=== PATIENT | female | born 1990 | race Caucasian/White ===

== ENCOUNTER 2022-10-26 10:43 | Emergency (ER) | payer MEDICAID, SELFPAY ==
[2022-10-26 10:45] VITALS: PULSE 85; RESP 20; TEMP 36.7; O2SAT 98; BMI 49.6
[2022-10-26 10:53] VITALS: BP 150/84
--- NOTE | 2022-10-26 13:32 | ED_ITS ---
HPI - General Adult General Chief complaint: Ear Stated complaint: EAR INFECTION Time Seen by Provider: 10/26/22 13:26 Source: patient Mode of arrival: walk-in Limitations: no limitations History of Present Illness HPI narrative: Patient is a 32-year-old female who has 2 different complaints today. Patient says that she's been having left ear pain for the past 2 weeks. Patient has been trying Claritin and Flonase with some relief. Patient has not been able to see her PCP yet. Patient also states for the past couple months, patient has been having intermittent leg swelling, and intermittent redness to her lower legs when she is wearing her pants at work. Patient unloads trucks, and is on her feet most the day. Patient is mildly obese. Patient states that her leg swelling is not as bad in the morning after she sleeps, but in the day is worse. Peripheral edema, venous stasis, and gravity were discussed during HPI. Patient takes no water pills. Patient says that she has been on blood pressure medication in the past, but her blood pressure normalized and she no longer needed blood pressure medication. She is not lightheaded or dizzy. She has no headache, no chest pain or shortness of breath. No abdominal pain, nausea or vomiting. No acute complaints. Patient does have redness to bilateral lower extremities. Patient states that after working, it occurs, and then after a few days the redness will go away. Patient states redness is worse last evening when she was working compared to this mornning. pt has reddness to the distal 3rd of her lower extremities, and the redness is where her pants have an elastic band that pushed against the skin. Patient states his redness has been coming and going for the past 2 months. Nurses note and vital signs reviewed and patient is not hypoxic. General: The patient appears well and in no apparent distress. Patient is resting comfortably on cart. Patient is not toxic, lethargic, or listless. Morbidly obese. Skin: Warm, dry, no pallor noted. Patient has redness to bilateral lower extremities, bandlike around her lower ankles where the elastic bandage of her work pants were compressing last night. Patient has no lymphangitis, no expanding cellulitis. There is no significant erythema to the area. This appeared to be venous stasis dermatitis. Patient states the redness was worse last evening that it is today. This is mild redness that is there every time that she works and then it goes away within one or 2 days. Patient has not worked in the last few days, she does not have the redness the last 3 days until she work last evening. No petechiae, purpura. Head: Normocephalic, atraumatic; No tenderness to palpation to bilateral frontomaxillary sinus Eye: Normal conjunctiva, no drainage, EOMI. PERRL Ears, Nose, Mouth, and Throat: oral mucosa is moist. Nares patent. Mouth without vesicles. Patient bilateral tympanic membrane shows no erythema, perforation or bulging. Cardiovascular: Regular Rate and Rhythm, no murmur, gallop, rub Respiratory: Patient is in no distress, no accessory muscle use, lungs are clear to auscultation, no wheezing, rales or rhonchi Back: non-tender, no CVA tenderness bilaterally to percussion. No CT LS midline pain GI: soft, no tenderness to palpation, no masses appreciated. No rebound, guarding, or rigidity noted. No flank pain bilateral, No distention Musculoskeletal: Patient has full range of motion of all of the extremities, no motor, sensory, or focal neurological deficits. Patient has no posterior pharyngeal erythema, petechia or exudate. Patient has equal lower extremity swelling bilateral. Patient does have the band circumferential mild redness to lower extremities over bilateral ankles, redness is improving since last night per patient. No injury, no signs of deformity, no lymphangitis, no expanding cellulitis Neurological: A&O x3, normal speech Psychiatric: Cooperative Related Data Allergies Allergy/AdvReac Type Severity Reaction Status Date / Time Penicillins Allergy Intermediate Verified 10/26/22 10:59 [facility] Social History Smoking status: Current every day smoker Exam Constitutional: Vital Signs, click to edit/add: Vital Signs - 24 hr 10/26/22 10:45 10/26/22 10:53 Temperature 98.1 F Pulse Rate [Monito r] 85 Respiratory Rate 20 Blood Pressure 150/84 H Pulse Oximetry 98 Course Vital Signs Vital signs: Vital Signs Temperature 98.1 F 10/26/22 10:45 Pulse Rate 85 10/26/22 10:45 Respiratory Rate 20 10/26/22 10:45 Pulse Oximetry 98 10/26/22 10:45 Temperature 98.1 F 10/26/22 10:45 Pulse Rate 85 10/26/22 10:45 Respiratory Rate 20 10/26/22 10:45 Blood Pressure 150/84 H 10/26/22 10:53 Pulse Oximetry 98 10/26/22 10:45 Medical Decision Making MDM Narrative Medical decision making narrative: Patient was educated on using DayQuil, NyQuil, Flonase, anti-inflammatories, Sudafed to help with sinus congestion. Patient has been having sneezing, coughing and congestion for the past 2 weeks. Patient has tried Claritin and Flonase for the past couple days with little relief. Patient will continue to treat symptoms. No acute findings of her left ear on physical exam. Patient was educated on peripheral edema, venous stasis dermatitis, and diuretics. Patient has classic presentation of venous stasis dermatitis. The dermatitis occurs when patient wears her elastic bands for work. Patient is on her feet all day when she is working. Patient stated that the swelling floor extremities is better in the morning when she is done sleeping, worse at nighttime. Patient was educated on elevating her legs at nighttime when she sleeping, to use any type of rises or something to raise the end of her bed 1-2 feet to help with swelling and nighttime. Patient was started on Toprol 0.5 mg of Hydrocort Dyazide to help with diuretics to help with swelling. Patient is instructed to follow-up with PCP. Patient understands of this, thankful for help, no questions at discharge. Discharge Plan Discharge Chief Complaint: Ear Clinical Impression: Otalgia of left ear, Edema of both lower legs due to peripheral venous insufficiency, Venous stasis dermatitis Patient Disposition: Home, Self-Care Time of Disposition Decision: 13:27 Condition: Good Instructions: Stasis Dermatitis (ED), Leg Edema (ED), Earache (ED), Lymphedema (ED), Venous Insufficiency (DC) Additional Instructions: Elevate the end of your bed when sleeping 1-2 feet. A low-dose diuretic blood p ressure/water pill has been prescribed 2 to start helping with decreasing fluid in her lower extremities. Follow-up with her PCP for additional recommendations. For your left ear pain, continue using Claritin. You can also start using DayQuil, NyQuil, Sudafed, Flonase. Also use anti-inflammatories of either Motrin, ibuprofen or Aleve. Follow-up with her PCP as well. Stand Alone Forms: Portal Instructions Referrals: Niecy Molina [Primary Care Provider] - 1 week
== END 2022-10-26 13:47 | disposition home or self-care (01) ==
PROVIDERS: Emergency Provider Emergency Medicine; PCP Nurse Practitioner
DX: H92.02 Otalgia, left ear (principal); I87.2 Venous insufficiency (chronic) (peripheral); E66.01 Morbid (severe) obesity due to excess calories; F17.210 Nicotine dependence, cigarettes, uncomplicated
CPT/HCPCS: 99281

== ENCOUNTER 2022-10-31 15:33 | Outpatient (OUT) | payer MEDICAID, SELFPAY ==
[2022-10-31 15:55] LABS: Basophils Absolute Auto 0.1 10^3/uL (0.0-0.1); Eosinophils Absolute Auto 0.4 10^3/uL (0.0-0.7); Eosinophils Percent Auto 3.2 % (0.9-7.0); Hematocrit 44.6 % (36.0-48.0); Hemoglobin 14.6 g/dL (12.0-16.0); Immature Granulocytes Abs Auto 0.03 10^3/uL (0.00-0.03); Immature Granulocytes Pct Auto 0.3 % (0.0-0.5); Lymphocytes Absolute Auto 4.6 10^3/uL (1.2-3.8); Mean Corpuscular HGB Conc 32.7 g/dL (29.9-35.2); Mean Corpuscular Hemoglobin 27.9 pg (26.7-34.0); Mean Corpuscular Volume 85.1 fL (81.0-99.0); Mean Platelet Volume 9.3 fL (9.5-13.5); Monocytes Absolute Auto 0.6 10^3/uL (0.3-0.8); Monocytes Percent Auto 5.4 % (1.7-12.0); Neutrophils Absolute Auto 5.6 10^3/uL (1.4-6.5); Neutrophils Percent Auto 49.1 % (43.0-75.0); Platelet Count 325 10^3/uL (150-450); Red Blood Count 5.24 10^6/uL (4.20-5.40); Red Cell Distribution Width 13.4 % (11.0-15.0); White Blood Count 11.3 10^3/uL (4.0-11.0)
[2022-10-31 16:03] LABS: Bilirubin Urine NEGATIVE (NEGATIVE); Blood Urine NEGATIVE (NEGATIVE); Clarity Urine CLEAR (CLEAR); Color Urine LT. YELLOW (YELLOW); Glucose Urine UA NEGATIVE (NEGATIVE); Ketones Urine NEGATIVE (NEGATIVE); Leukocyte Esterase Urine TRACE (NEGATIVE); Nitrite Urine NEGATIVE (NEGATIVE); Protein Urine NEGATIVE (NEG/TRACE); Specific Gravity Urine 1.015 (1.005-1.025); Urobilinogen Urine 0.2 EU/dL (0.2-1.0)
[2022-10-31 17:08] LABS: Bacteria Urine TRACE #/HPF (NONE SEEN); Cast Seen? NONE SEEN #/LPF (NONE SEEN); Crystals Seen? None Seen #/HPF (None Seen); Mucus Urine NONE SEEN (NONE SEEN); RBC Urine 0-2 #/HPF (0-2); Squamous Epithelial Cell Urine FEW #/LPF (NONE/RARE); Urine Culture Indicated NO; WBC Urine 0-2 #/HPF (NONE SEEN)
[2022-10-31 20:59] LABS: Estimated Average Glucose 111 mg/dL; Glycohemoglobin A1C 5.5 % (4.5-6.2)
[2022-10-31 21:22] LABS: Alanine Aminotransferase 38 U/L (14-59); Albumin Globulin Ratio 0.8; Albumin Level 3.4 g/dL (3.4-5.0); Alkaline Phosphatase 79 U/L (46-116); Anion Gap 11.5; Aspartate Amino Transferase 19 U/L (15-37); BUN Creatinine Ratio 15.9; Bilirubin Total 0.2 mg/dL (0.2-1.0); Calcium 8.6 mg/dL (8.5-10.1); Carbon Dioxide 29.9 mmol/L (21.0-32.0); Chloride 99 mmol/L (98-107); Chol HDL Ratio 3.3; Cholesterol 154 mg/dL (<=200); Estimated GFR (African America >60 (>=60); Estimated GFR (Non-African Ame >60 (>=60); Globulin 4.2 g/dL; Glucose 91 mg/dL (74-106); HDL Cholesterol 46 mg/dL (40-60); Potassium 4.4 mmol/L (3.5-5.1); Sodium 136 mmol/L (136-145); Thyroid Stimulating Hormone 1.931 uIU/mL (0.358-3.740); Total Protein 7.6 g/dL (6.4-8.2); Triglycerides 191 mg/dL (<=150); VLDL CHOLESTEROL 38.2 mg/dL
== END 2022-10-31 15:34 ==
PROVIDERS: PCP Nurse Practitioner; Visit Provider Nurse Practitioner
DX: R60.0 Localized edema (principal); E66.01 Morbid (severe) obesity due to excess calories
CPT/HCPCS: 36415; 80053; 80061; 81001; 83036; 84443; 85025

== ENCOUNTER 2022-11-13 12:56 | Outpatient (OUT) | payer MEDICAID, SELFPAY ==
[2022-11-13 14:50] LABS: Alanine Aminotransferase 33 U/L (14-59); Albumin Globulin Ratio 0.8; Albumin Level 3.5 g/dL (3.4-5.0); Alkaline Phosphatase 77 U/L (46-116); Anion Gap 12.3; Aspartate Amino Transferase 23 U/L (15-37); BUN Creatinine Ratio 13.6; Bilirubin Total 0.4 mg/dL (0.2-1.0); Calcium 9.1 mg/dL (8.5-10.1); Carbon Dioxide 29.5 mmol/L (21.0-32.0); Chloride 99 mmol/L (98-107); Estimated GFR (African America >60 (>=60); Estimated GFR (Non-African Ame >60 (>=60); Globulin 4.5 g/dL; Glucose 86 mg/dL (74-106); Potassium 4.8 mmol/L (3.5-5.1); Sodium 136 mmol/L (136-145)
== END 2022-11-13 12:57 ==
LOC: LAB 12:58
PROVIDERS: PCP Nurse Practitioner; Visit Provider Nurse Practitioner
DX: R60.0 Localized edema (principal)
CPT/HCPCS: 36415; 80053

== ENCOUNTER 2022-12-19 15:20 | Outpatient (OUT) | payer MEDICAID, SELFPAY ==
[2022-12-19 16:22] LABS: Calcium 8.6 mg/dL (8.5-10.1); Carbon Dioxide 31.8 mmol/L (21.0-32.0); Chloride 99 mmol/L (98-107); Estimated GFR (African America >60 (>=60); Estimated GFR (Non-African Ame >60 (>=60); Glucose 98 mg/dL (74-106); Potassium 4.8 mmol/L (3.5-5.1); Sodium 138 mmol/L (136-145)
== END 2022-12-19 15:21 | disposition home or self-care (01) ==
LOC: LAB 15:22
PROVIDERS: PCP Nurse Practitioner; Visit Provider Nurse Practitioner
DX: R60.0 Localized edema (principal)
CPT/HCPCS: 36415; 80048

== ENCOUNTER 2023-01-23 16:48 | Outpatient (OUT) | payer MEDICAID, SELFPAY ==
[2023-01-23 17:09] LABS: Anion Gap 8.1; BUN Creatinine Ratio 12.2; Calcium 8.5 mg/dL (8.5-10.1); Carbon Dioxide 31.6 mmol/L (21.0-32.0); Chloride 104 mmol/L (98-107); Estimated GFR (African America >60 (>=60); Estimated GFR (Non-African Ame >60 (>=60); Glucose 115 mg/dL (74-106); Potassium 4.7 mmol/L (3.5-5.1); Sodium 139 mmol/L (136-145)
== END 2023-01-23 16:49 | disposition home or self-care (01) ==
PROVIDERS: PCP Nurse Practitioner; Visit Provider Nurse Practitioner
DX: R60.0 Localized edema (principal)
CPT/HCPCS: 36415; 80048

== ENCOUNTER 2023-07-21 12:07 | Emergency (ER) | payer MEDICAID, SELFPAY ==
[2023-07-21 12:22] VITALS: BP 134/91; PULSE 96; RESP 18; TEMP 37.3; O2SAT 100; BMI 62.0
[2023-07-21 12:57] LABS: Influenza Virus A Antigen Negative; Influenza Virus B Antigen Negative; Internal Control Within Normal Limits
[2023-07-21 12:58] LABS: SARS-CoV-2 Ag NEGATIVE (NEGATIVE)
--- NOTE | 2023-07-21 13:03 | ED_ITS ---
HPI - URI/Sore Throat General Chief Complaint: Upper Respiratory Infection Stated Complaint: Upper Respiratory Infection Time Seen by Provider: 07/21/23 12:31 Source: patient Limitations: no limitations History of Present Illness HPI Narrative: The patient presented to us with flulike symptoms that started last night of runny nose body aches and cough she has been exposed to her boyfriend to have influenza. No other complaints Related Data Home Medications Medication Instructions Recorded Confirmed furosemide 20 mg tablet 20 mg PO DAILY 07/21/23 07/21/23 Previous Rx's Medication Instructions Recorded ondansetron 4 mg disintegrating 4 mg PO TID PRN nausea and 07/21/23 tablet vomiting 48 hours #6 tabs oseltamivir 75 mg capsule (Tamiflu) 75 mg PO BID 5 days #10 caps 07/21/23 Allergies Allergy/AdvReac Type Severity Reaction Status Date / Time Penicillins Allergy Intermediate Verified 07/21/23 12:22 Review of Systems ROS Status of ROS 10 or more systems reviewed and unremark able except as noted in history and below PFSH PFSH Social History Smoking status: Former smoker Exam Narrative Exam Narrative: Nurses notes and vital signs reviewed and patient is not hypoxic. General: Well-appearing and in no apparent distress. Skin: Warm, dry, no pallor noted. No rash. Head: Normocephalic, atraumatic. Neck: Supple, non-tender. Eye: Pupils are equal, round and EOMI. No scleral icterus. Ears, Nose, Mouth, and Throat: TM are clear, no nasal mucosal hypertrophy. Oral mucosa is moist, no posterior oropharynx erythema, uvula is mid-line Cardiovascular: Regular Rate and Rhythm without murmur, gallop or rub. Respiratory: No accessory muscle use or respiratory distress. Lungs are clear to auscultation, no wheezing, rales or rhonchi Chest Wall: no tenderness Back: No midline thoracic or lumbar vertebral tenderness. No CVA tenderness Musculoskeletal: normal ROM, no calf or popliteal tenderness, no lower extremity edema/swelling GI: Abdomen is soft, non-distended. Normal bowel sounds. No masses appreciated. No tenderness to palpation. No rebound, guarding, or rigidity noted. Neurological: A&O x4. No cranial nerve dysfunction observed. No truncal ataxia. Moves all extremities. Sensation intact. Psychiatric: Cooperative and interactive. Normal mood and affect. Constitutional Vital Signs, click to edit/add: Last Vital Signs Temp 99.1 F 07/21/23 12:22 Pulse 96 H 07/21/23 12:22 Resp 18 07/21/23 12:22 BP 134/91 07/21/23 12:22 Pulse Ox 100 07/21/23 12:22 O2 Del Method Room Air 07/21/23 12:22 Course Vital Signs Vital signs: Vital Signs Temperature 99.1 F 07/21/23 12:22 Pulse Rate 96 H 07/21/23 12:22 Respiratory Rate 18 07/21/23 12:22 Blood Pressure 134/91 07/21/23 12:22 Pulse Oximetry 100 07/21/23 12:22 Oxygen Delivery Method Room Air 07/21/23 12:22 Temperature 99.1 F 07/21/23 12:22 Pulse Rate 96 H 07/21/23 12:22 Respiratory Rate 18 07/21/23 12:22 Blood Pressure 134/91 07/21/23 12:22 Pulse Oximetry 100 07/21/23 12:22 Oxygen Delivery Method Room Air 07/21/23 12:22 MDM - URI/Sore Throat MDM Narrative Medical decision making narrative: The patient tested for COVID and flu negative here in the ER but she is exposed to a positive patient with influenza with symptoms that correlate and she will be treated with Tamiflu as well as Zofran and supportive care. The patient is to follow up with primary care physician in next 2-3 days or to return to the emergency department should any of the signs or symptoms worsen or new symptoms develop. The patient agrees with the following Diagnosis and Treatment plan and the patient will be discharged home. Lab Data Labs: Lab Results 07/21/23 Range/Units 12:25 Influenza Type A Ag Negative Influenza Type B Ag Negative SARS-CoV-2 Ag (CV2AG) Negative (NEGATIVE) Discharge Plan Discharge Chief Complaint: Upper Respiratory Infection Clinical Impression: Flu Patient Disposition: Home, Self-Care Time of Disposition Decision: 13:03 Condition: Good Prescriptions / Home Meds: New oseltamivir [Tamiflu] 75 mg capsule 75 mg PO BID 5 Days Qty: 10 0RF ondansetron 4 mg tablet,disintegrating 4 mg PO TID PRN (Reason: nausea and vomiting) 2 Days Qty: 6 0RF No Action furosemide 20 mg tablet 20 mg PO DAILY Instructions: Influenza (DC) Stand Alone Forms: Portal Instructions Referrals: Niecy Molina NP [Primary Care Provider] - 1 week
[2023-07-21] MEDS: ONDANSETRON 4 MG RAPDIS TABLET SL (13:12)
== END 2023-07-21 13:13 | disposition home or self-care (01) ==
PROVIDERS: Emergency Provider Emergency Medicine; PCP Nurse Practitioner
DX: J11.1 Influenza due to unidentified influenza virus with other respiratory manifestations (principal); Z20.822 Contact with and (suspected) exposure to COVID-19; Z79.899 Other long term (current) drug therapy; Z87.891 Personal history of nicotine dependence
CPT/HCPCS: 87804; 87811; 99283; Q0162

== ENCOUNTER 2023-10-02 06:57 | Outpatient (OUT) | payer MEDICAID, SELFPAY ==
--- OUTSIDE RECORDS SUMMARY | 2023-10-02 07:00 | XMS_ITS | CCD ---
Author Organization [facility] Care Team Providers [place] Name Role Phone LALITA JEROME Surgeon Unavailable LALITA JEROME Attending Unavailable LALITA JEROME Admitting Unavailable [facility] Procedure Practitioner Unavailab le AICHHOLZ, NIECY Referring Unavailable AICHHOLZ, NIECY Primary Care Unavailable KATE BRADY Surgeon Unavailable [place] Procedure Practitioner Unavailab le AICHHOLZ, FIELD ASSOCIATE NIECY Admitting Unavailable AICHHOLZ, FIELD ASSOCIATE NIECY Attending Unavailable AICHHOLZ, FIELD ASSOCIATE NIECY Consulting Unavailable AICHHOLZ, FIELD ASSOCIATE NIECY Primary Care Unavailable AICHHOLZ, FIELD ASSOCIATE NIECY Admitting Unavailable AICHHOLZ, FIELD ASSOCIATE NIECY Attending Unavailable AICHHOLZ, FIELD ASSOCIATE NIECY Consulting Unavailable AICHHOLZ, FIELD ASSOCIATE NIECY Primary Care Unavailable AICHHOLZ, FIELD ASSOCIATE NIECY Admitting Unavailable AICHHOLZ, FIELD ASSOCIATE NIECY Attending Unavailable AICHHOLZ, FIELD ASSOCIATE NIECY Consulting Unavailable AICHHOLZ, FIELD ASSOCIATE NIECY Primary Care Unavailable DR SEE [place] Admitting Unavailable AICHHOLZ, FIELD ASSOCIATE NIECY Primary Care Unavailable DR ESE [place] Attending Unavailable DR SEE [place] Consulting Unavailable DR TAD STAFFORD Attending Unavailable CHEPE AGUILA Consulting Unavailable DR TAD STAFFORD Admitting Unavailable AICHHOLZ, FIELD ASSOCIATE NIECY Primary Care Unavailable CECILIO ALMARAZ Attending Unavailable CECILIO ALMARAZ Consulting Unavailable CECILIO ALMARAZ Admitting Unavailable AICHHOLZ, FIELD ASSOCIATE NIECY Primary Care Unavailable Leticiahsepideh, Niecy J Primary Care Provider [phone] YAA Cespedes Emergency Provider AICHGIANNIZ, NIECY Attending Unavailable Dung Cespedes Attending Unavailable Dung Cespedes Admitting Unavailable Aichholz, Niecy J Primary Care Unavailable Allergies Allergy Classification Reported Allergen(s) Allergy Type Date of Onset Reaction(s) Facility Penicillins (antibiotic) (1 source) Penicillin; Translations: [PENICILLIN] Drug Allergy 09-16-19 [facility] Repository Sulfamethoxazole / Trimethoprim (1 source) Sulfamethoxazole / Trimethoprim; Translations: [BACTRIM] Drug Allergy 09-16-19 [facility] Repository (2 sources) Penicillins Drug allergy (disorder) 10-11-19 13 Unknown Reaction [facility] Repository (2 sources) Sulfamethoxazole; Translations: [sulfamethoxazole] Drug Allergy 09-12-19 [facility] (2 sources) Trimethoprim; Translations: [trimethoprim] Drug Allergy 09-12-19 [facility] (1 source) Penicillins Drug allergy (disorder) 09-12-19 [facility] Repository Medications Current Medications Medication Drug Class(es) Dates Sig (Normalized) Sig (Original) cephalexin 50 mg/ml oral suspension (1 source) Cephalosporin Antibacterial Start: 09-12-2023 take 500 mg by mouth four times daily Cephalexin Active 500 MG PO Four times daily 400 10 September 12, 2023 12:00am fluticasone propionate 0.05 mg/actuat metered dose nasal spray (1 source) Corticosteroid Start: 10-16-2019 take 1 spray(s) nasal route twice daily Fluticasone Propionate (Flonase Allergy Relief) 50 mcg/actuation spray,suspension Active 1 SPRAY INTRANASAL Twice daily 9.9 5 October 16, 2019 12:00am administer into each nostril Completed/Discontinued Medications Medication Drug Class(es) Dates Sig (Normalized) Sig (Original) ARIPiprazole 10 mg oral tablet (1 source) Atypical Antipsychotic Start: 10-16-2019 End: 09-12-2023 take 1 tablet by mouth once daily Aripiprazole (Abilify) 10 mg Tablet Discontinued 10 MG PO Daily October 16, 2019 12:00am September 12, 2023 11:19am busPIRone hydrochloride 10 mg oral tablet (1 source) Start: 10-16-2019 End: 09-12-2023 take 20 mg by mouth twice daily Buspirone Discontinued 20 MG PO Twice daily October 16, 2019 12:00am September 12, 2023 11:19am cetirizine hydrochloride 10 mg oral tablet (1 source) Histamine-1 Receptor Antagonist Start: 10-16-2019 End: 09-12-2023 take 1 tablet by mouth once daily Cetirizine (Zyrtec) 10 mg tablet Discontinued 10 MG PO Daily 14 October 16, 2019 12:00am September 12, 2023 11:20am DULoxetine 60 mg delayed release oral capsule (1 source) Serotonin and Norepinephrine Reuptake Inhibitor Start: 10-16-2019 End: 09-12-2023 take 60 mg by mouth once daily Duloxetine Discontinued 60 MG PO Daily October 16, 2019 12:00am September 12, 2023 11:20am loratadine 10 mg oral tablet (1 source) Start: 10-16-2019 End: 09-12-2023 take 1 tablet by mouth once daily Loratadine (Claritin) 10 mg Tablet Discontinued 10 MG PO Daily October 16, 2019 12:00am September 12, 2023 11:20am Problems Active Problems Problem Classification Problem Date Documented Da te Episodic/Chronic Asthma (1 source) Unspecified asthma, uncomplicated; Translations: [UNSPECIFIED ASTHMA UNCOMPLICATED] Onset: 04-25-2022 Chronic Headache; including migraine (1 source) Ophthalmic migraine; Translations: [Migraine with aura, not intractable, without status migrainosus] 05-08-2023 Chronic Other circulatory disease (1 source) Elevated blood pressure; Translations: [Elevated blood-pressure reading, without diagnosis of hypertension] 05-08-2023 Episodic Other nutritional; endocrine; and metabolic disorders (1 source) Obesity, unspecified; Translations: [OBESITY UNSPECIFIED] Onset: 04-25-2022 Chronic Other nutritional; endocrine; and metabolic disorders (1 source) Body mass index (BMI) 50.0-59.9, adult; Translations: [BODY MASS INDEX BMI 50.0-59.9 ADULT] Onset: 04-25-2022 Chronic Other upper respiratory disease (1 source) Nasal congestion; Translations: [Nasal congestion] 05-08-2023 Episodic Skin and subcutaneous tissue infections (2 sources) Abscess; Translations: [Cutaneous abscess, unspecified] Onset: 09-12-2023 09-12-2023 Episodic Substance-related disorders (1 source) Nicotine dependence, cigarettes, uncomplicated; Translations: [NICOTINE DEPEND CIGARETTES UNCOMP] Onset: 11-30-2022 Chronic Unclassified (2 sources) COUGH, UNSPECIFIED; Translations: [COUGH, UNSPECIFIED] Onset: 04-25-2022 Unclassified (3 sources) CONTACT W/AND (SUSP) EXPOS COVID-19; Translations: [CONTACT W/AND (SUSP) EXPOS COVID-19] Onset: 08-18-2021 Viral infection (1 source) COVID-19; Translations: [COVID-19] Onset: 04-25-2022 Past or Other Problems Problem Classification Problem Date Documented Da te Episodic/Chronic Nausea and vomiting (4 sources) Vomiting, unspecified; Translations: [Nausea] Onset: 12-29-2021 Episodic Other screening for suspected conditions (not mental disorders or infectious disease) (4 sources) Encounter for screening for malignant neoplasm of cervix; Translations: [ENC SCREENING MALIG NEOPLASM CERV] Onset: 10-11-2021 Episodic Residual codes; unclassified (4 sources) Localized edema; Translations: [LOCALIZED EDEMA] Onset: 05-17-2021 Episodic Unclassified (1 source) COUGH, UNSPECIFIED; Translations: [COUGH, UNSPECIFIED] Onset: 04-22-2022 Unclassified (1 source) CONTACT W/AND (SUSP) EXPOS COVID-19; Translations: [CONTACT W/AND (SUSP) EXPOS COVID-19] Onset: 08-15-2021 Results Test Name Value Interpretation Reference Range Facility Covid-19 PCR (CVDTB)on 03-28 SARS-CoV-2 (COVID-19) RNA ANDRES+probe Ql (Unsp spec) Detected Critically abnormal NOT DETECTED [facility] Comment on above: Result Comment: This test is not yet approved or cleared by the [place] FDA. When there are no FDA-approved or cleared tests available, and other criteria are met, FDA can make tests available under an emergency access mechanism called an Emergency Use Authorization (EUA). The EUA for this test is supported by the Enterprise Integration Architect of Health and Human Service's declaration that circumstances exist to justify the emergency use of in vitro diagnostics for the detection and/or diagnosis of the virus that causes COVID-19. This EUA will remain in effect for the duration of the COVID-19 declaration justifying emergency of IVDs, unless it is terminated or revoked by the FDA (after which the test may no longer be used). Performed By: #### C VDTBH #### [facility] [address] [place] [address] Dr. Ronnie Wolf INFLUENZA A AND B [facility]on 04-[facility] Normal [facility] Comment on above: Result Comment: Nega tive for Flu A protein angiten. Infection due to Flu A cannot be ruled out. Flu A angiten in the sample may be below the detection limit of the test. Performed By: #### I NFLUAB #### [facility] [address] [place] [address] Dr. Ronnie [facility] BEL[facility] Normal [facility] Comment on above: Result Comment: Nega tive for Flu B protein antigen. Infection due to Flu B cannot be ruled out. Flu B antigen in the sample may be below the detection limit of the test. Performed By: #### I NFLUAB #### [facility] [address] [place] [address] Dr. Ronnie Wolf INFLUENZA A AG Negative Normal NEGATIVE SEE COMMENT [facility] Comment on above: Performed By: #### I NFLUAB #### [facility] [address] [place] [address] Dr. Ronnie Wolf INFLUENZA B AG Negative Normal NEGATIVE SEE COMMENT [facility] Comment on above: Performed By: #### I NFLUAB #### [facility] [address] [place] [address] Dr. Ronnie Wolf INTERNAL CONTROLS Within Normal Limits Normal Wi thin Normal Limits [facility] Comment on above: Performed By: #### I NFLUAB #### [facility] [address] [place] [address] Dr. Ronnie Wolf PAP ACOG PANEL 2: 21 to 29on 10-17-2021 . . Normal [facility] Comment on above: Result Comment: Perf ormed at: BA Performed By: #### [id number] #### [facility] [address] [place] [address] Dr. Ronnie Wolf Age Gdln ACOG Testing - Normal [facility] Comment on above: Performed By: #### [id number] #### [facility] [address] [place] [address] Dr. Ronnie Wolf DIAGNOSIS: Comment Normal [facility] Comment on above: Result Comment: NEGA TIVE FOR INTRAEPITHELIAL LESION OR MALIGNANCY. Performed at: BA Performed By: #### [id number] #### [facility] [address] [place] [address] Dr. Ronnie Wolf Methodology: Comment [facility] Comment on above: Result Comment: This liquid based ThinPrep(R) pap test was screened with the use of an image guided system. Performed at: WB Performed By: #### [id number] #### [facility] [address] [place] [address] Dr. Ronnie Wolf Note: Comment Normal [facility] Comment on above: Result Comment: The Pap smear is a screening test designed to aid in the detection of premalignant and malignant conditions of the uterine cervix. It is not a diagnostic procedure and should not be used as the sole means of detecting cervical cancer. Both false-positive and false-negative reports do occur. . Performed at: WB Performed By: #### [id number] #### [facility] [address] [place] [address] Dr. Ronnie Wolf Performed by: Comment [facility] Comment on above: Result Comment: Ning Mcconnell Logging Crew Supervisor (ASCP) Performed at: [facility] Performed By: #### [id number] #### [facility] [address] [place] [address] Dr. Ronnie Wolf Reflex Criteria: Comment [facility] Comment on above: Result Comment: The HPV DNA reflex criteria were not met with this specimen result therefore, no HPV testing was performed. . Performed at: BA Performed By: #### [id number] #### [facility] [address] [place] [address] Dr. Ronnie Wolf Specimen adequacy: Comment [facility] Comment on above: Result Comment: Sati sfactory for evaluation. Endocervical and/or squamous metaplastic cells (endocervical component) are present. Performed at: BA Performed By: #### [id number] #### [facility] [address] [place] [address] Dr. Ronnie Wolf Covid-19 PCR (CVDTB)on 07-26 SARS-CoV-2 (COVID-19) RNA ANDRES+probe Ql (Unsp spec) Not detected Normal NOT DETECTED [facility] Comment on above: Result Comment: When diagnostic testing is negative, the possibility of a false negative should be considered in the context of a patient's recent exposures and the presence of clinical signs and symptoms consistent with SARS-CoV-2. This test is not yet approved or cleared by the [place] FDA. When there are no FDA-approved or cleared tests available, and other criteria are met, FDA can make tests available under an emergency access mechanism called an Emergency Use Authorization (EUA). The EUA for this test is supported by the Enterprise Integration Architect of Health and Human Service's declaration that circumstances exist to justify the emergency use of in vitro diagnostics for the detection and/or diagnosis of the virus that causes COVID-19. This EUA will remain in effect for the duration of the COVID-19 declaration justifying emergency of IVDs, unless it is terminated or revoked by the FDA (after which the test may no longer be used). Performed By: #### C [facility] #### [facility] [address] [place] [address] Dr. Ronnie Wolf Covid-19 PCR (CVDTB)on 04-27 SARS-CoV-2 (COVID-19) RNA ANDRES+probe Ql (Unsp spec) Detected Critically abnormal NOT DETECTED [facility] Comment on above: Result Comment: This test is not yet approved or cleared by the [place] FDA. When there are no FDA-approved or cleared tests available, and other criteria are met, FDA can make tests available under an emergency access mechanism called an Emergency Use Authorization (EUA). The EUA for this test is supported by the Enterprise Integration Architect of Health and Human Service's (HHS's) declaration that circumstances exist to justify the emergency use of in vitro diagnostics for the detection and/or diagnosis of the virus that causes COVID-19. This EUA will remain in effect (meaning this test can be used) for the duration of the COVID-19 declaration justifying emergency of IVDs, unless it is terminated or revoked by FDA (after which the test may no longer be used). Performed By: #### C VDTBH #### [facility] [address] [address] [address] Ronnie Wolf CBC AUTO DIFFon 05-17-2021 BASO # 0.1 103/ul Normal 0.0-0.1 [facility] Comment on above: Performed By: #### C BC #### [facility] [address] [address] [address] Ronnie Wolf Basophils/100 WBC (Bld) 0.7 % Normal 0.2-2.0 [facility] Comment on above: Performed By: #### C BC #### [facility] [address] [place] [address] Dr. Ronnie Wolf EO # 0.5 103/ul Normal 0.0-0.7 [facility] Comment on above: Performed By: #### C BC #### [facility] [address] [place] [address] Dr. Ronnie Wolf Eosinophils/100 WBC (Bld) 3.8 % Normal 0.9-7.0 [facility] Comment on above: Performed By: #### C BC #### [facility] [address] [place] [address] Dr. Ronnie Wolf Erythrocyte distribution width (RBC) [Ratio] 13.9 % Normal 11.0-15.0 [facility] Comment on above: Performed By: #### C BC #### [facility] [address] [place] [address] Dr. Ronnie Wolf Hematocrit (Bld) [Volume fraction] 43.1 % Normal 36.0-48.0 [facility] Comment on above: Performed By: #### C BC #### [facility] [address] [place] [address] Dr. Ronnie Wolf Hemoglobin (Bld) [Mass/Vol] 13.4 g/dL Normal 12.0-16.0 [facility] Comment on above: Performed By: #### C BC #### [facility] [address] [place] [address] Dr. Ronnie Wolf IG # 0.04 10e3/ul Critically high 0.00-0.[address] [facility] Comment on above: Performed By: #### C BC #### [facility] [address] [place] [address] Dr. Ronnie Wolf IG % 0.3 % Normal 0.0-0.5 [facility] Comment on above: Performed By: #### C BC #### [facility] [address] [place] [address] Dr. Ronnie Wolf LYMPH # 4.5 103/ul Critically high 1.2-3.8 [facility] Comment on above: Performed By: #### C BC #### [facility] [address] [place] [address] Dr. Ronnie Wolf Lymphocytes/100 WBC (Bld) 37.6 % Normal 20.5-60.0 [facility] Comment on above: Performed By: #### C BC #### [facility] [address] [place] [address] Dr. Ronnie Wolf MANUAL DIFF REQ NO Normal [facility] Comment on above: Performed By: #### C BC #### [facility] [address] [place] [address] Dr. Ronnie Wolf MCH (RBC) [Entitic mass] 27.1 pg Normal 26.7-34.0 [facility] Comment on above: Performed By: #### C BC #### [facility] [address] [place] [address] Dr. Ronnie Wolf MCHC (RBC) [Mass/Vol] 31.1 g/dL Normal 29.9-35.2 [facility] Comment on above: Performed By: #### C BC #### [facility] [address] [place] [address] Dr. Ronnie Wolf MCV (RBC) [Entitic vol] 87.1 fL Normal 81.0-99.0 [facility] Comment on above: Performed By: #### C BC #### [facility] [address] [place] [address] Dr. Ronnie Wolf MONO # 0.7 103/ul Normal 0.3-0.8 [facility] Comment on above: Performed By: #### C BC #### [facility] [address] [place] [address] Dr. Ronnie Wolf Monocytes/100 WBC (Bld) 5.5 % Normal 1.7-12.0 [facility] Comment on above: Performed By: #### C BC #### [facility] [address] [place] [address] Dr. Ronnie Wolf NEUT # 6.3 103/ul Normal 1.4-6.5 [facility] Comment on above: Performed By: #### C BC #### [facility] [address] [place] [address] Dr. Ronnie Wolf Neutrophils/100 WBC (Bld) 52.1 % Normal 43.0-75.0 [facility] Comment on above: Performed By: #### C BC #### [facility] [address] [place] [address] Dr. Ronnie Wolf Platelet mean volume (Bld) [Entitic vol] 10.2 fL Normal 9.5-13.5 [facility] Comment on above: Performed By: #### C BC #### [facility] [address] [place] [address] Dr. Ronnie Wolf PLT 313 103/ul Normal 150-450 [facility] Comment on above: Performed By: #### C BC #### [facility] [address] [place] [address] Dr. Ronnie Wolf RBC 4.95 106/ul Normal 4.20-5.40 [facility] Comment on above: Performed By: #### C BC #### [facility] [address] [place] [address] Dr. Ronnie Wolf WBC 12.0 103/ul Critically high 4.0-11.0 [facility] Comment on above: Performed By: #### C BC #### [facility] [address] [place] [address] Dr. Ronnie Wolf FREE T4on 05-17-2021 Free T4 [Mass/Vol] 0.92 ng/dL Normal 0.78-2.19 [facility] Comment on above: Performed By: #### F T4 #### [facility] [address] [address] [address] Ronnie Wolf PROF 14(COMP METB)on 021 Albumin [Mass/Vol] 3.2 g/dL Critically low 3.5-5.0 [facility] Comment on above: Performed By: #### C MP, TSH #### [facility] [address] [address] [address] Ronine Wolf Albumin/Globulin [Mass ratio] 0.7 {ratio} Normal [facility] Comment on above: Performed By: #### C MP, TSH #### [facility] [address] [address] [address] Ronnie Wolf ALP [Catalytic activity/Vol] 66 U/L Normal 38-126 [facility] Comment on above: Performed By: #### C MP, TSH #### [facility] [address] [place] [address] Dr. Ronnie Wolf ALT [Catalytic activity/Vol] 32 U/L Normal 9-52 [facility] Comment on above: Performed By: #### C MP, TSH #### [facility] [address] [address] [address] Ronnie Wolf Anion gap [Moles/Vol] 11.8 mmol/L Normal [facility] Comment on above: Performed By: #### C MP, TSH #### [facility] [address] [address] [address] Ronnie Wolf AST [Catalytic activity/Vol] 17 U/L Normal 14-36 [facility] Comment on above: Performed By: #### C MP, TSH #### [facility] [address] [address] [address] Ronnie Wolf Bilirubin [Mass/Vol] 0.2 mg/dL Normal 0.2-1.3 [facility] Comment on above: Performed By: #### C MP, TSH #### [facility] [address] [address] [address] Ronnie Wolf Calcium [Mass/Vol] 8.7 mg/dL Normal 8.4-10.2 [facility] Comment on above: Performed By: #### C MP, TSH #### [facility] [address] [address] [address] Ronnie Wolf Chloride [Moles/Vol] 103 mmol/L Normal 98-107 [facility] Comment on above: Performed By: #### C MP, TSH #### [facility] [address] [address] [address] Ronnie Wolf CO2 [Moles/Vol] 28.9 mmol/L Normal 22.0-30.0 [facility] Comment on above: Performed By: #### C MP, TSH #### [facility] [address] [address] [address] Ronnie Wolf Creatinine [Mass/Vol] 0.61 mg/dL Normal 0.52-1.04 [facility] Comment on above: Performed By: #### C MP, TSH #### [facility] [address] [address] [address] Ronnie Wolf EGFR-AF UGANDAN >60 Normal >=60 [facility] Comment on above: Performed By: #### C MP, TSH #### [facility] [address] [address] [address] Rnonie Wolf EGFR-NON AF UGANDAN >60 Normal >=60 [facility] Comment on above: Performed By: #### C MP, TSH #### [facility] [address] [address] [address] Ronnie Wolf Globulin (S) [Mass/Vol] 4.3 g/dL Normal [facility] Comment on above: Performed By: #### C MP, TSH #### [facility] [address] [address] [address] Ronnie Wolf Glucose [Mass/Vol] 112 mg/dL Critically high 74-106 [facility] Comment on above: Performed By: #### C MP, TSH #### [facility] [address] [address] [address] Ronnie Wolf Potassium [Moles/Vol] 4.7 mmol/L Normal 3.4-5.0 [facility] Comment on above: Performed By: #### C MP, TSH #### [facility] [address] [place] [address] Dr. Ronnie Wolf Protein [Mass/Vol] 7.5 g/dL Normal 6.1-8.2 [facility] Comment on above: Performed By: #### C MP, TSH #### [facility] [address] [place] [address] Dr. Ronnie Wolf Sodium [Moles/Vol] 139 mmol/L Normal 137-145 [facility] Comment on above: Performed By: #### C MP, TSH #### [facility] [address] [place] [address] Dr. Ronnie Wolf Urea nitrogen [Mass/Vol] 10.0 mg/dL Normal 7.0-17.0 [facility] Comment on above: Performed By: #### C MP, TSH #### [facility] [address] [place] [address] Dr. Ronnie Wolf Urea nitrogen/Creatini ne [Mass ratio] 16.4 mg/mg Normal [facility] Comment on above: Performed By: #### C MP, TSH #### [facility] [address] [place] [address] Dr. Ronnie Wolf TSHon 05-17-2021 TSH 1.995 uIU/mL Normal 0.470-4.680 [facility] Comment on above: Performed By: #### C MP, TSH #### [facility] [address] [place] [address] Dr. Ronnie Wolf TSH RANGE SEE BELOW Normal [facility] Comment on above: Result Comment: <0.3 4 UIU/ml HYPERTHYROID 0.34-5.60 UIU/ml EUTHYROID >5.60 UIU/ml HYPOTHYROID Performed By: #### C MP, TSH #### [facility] [address] [place] [address] Dr. Ronnie Wolf Operative Reporton Operative Report MR#: [id number] [facility] Pt. Name: Faby Mcconnell Room #: 0C Discharge 09/23/2020 Date: Birthdate: 1990 OPERATIVE REPORT DATE OF SURGERY: 09/23/2020 SURGEON: Lalita Jerome M.D. HABITAT BIOLOGIST: Jose Carlos Meraz M.D. PREOPERATIVE DIAGNOSIS: Biliary colic. POSTOPERATIVE DIAGNOSIS: Biliary colic. PROCEDURE PERFORMED: Laparoscopic cholecystectomy. INDICATION FOR PROCEDURE: The patient is a 30-year-old female with recurrent episodes of biliary colic. Laparoscopic cholecystectomy was indicated. Risks and benefits of the procedure were discussed with the patient and informed consent was obtained. DESCRIPTION OF PROCEDURE: The patient was identified in the preoperative holding area. She was taken back to the operating room. She was laid in supine position. Appropriate cardiovascular monitors were connected and running. After instillation of adequate general anesthesia, the abdomen was prepped and draped in normal sterile fashion. Prophylactic antibiotics were given. A time-out was performed and a safety pause held confirming correct patient, position, procedure, and equipment. A 5 mm Optiview trocar was placed in the supraumbilical region. Local anesthesia injected at the port sites. A 12 mm trocar was placed in the epigastric region. Two additional 5 mm trocars were placed in the right subcostal area. The peritoneum overlying Calot's triangle was opened using electrocautery. The peritoneal reflection laterally and medially were opened using cautery. Blunt dissection was used to dissect the cystic triangle along with electrocautery. The critical view of safety was obtained. Hemo locks were placed on the cystic duct and cystic artery. Two hemolocks were placed on the patient's side and 1 was placed in the specimen side. The cystic duct was divided using scissors and the cystic artery was divided using electrocautery. The gallbladder was taken off the liver bed using electrocautery. Hemostasis obtained using cautery. The gallbladder was retrieved in an EndoCatch. The fascia of the 12 mm port was closed using 0 Vicryl using a Zachary Rain needle and the skin was closed using 4-0 Vicryl followed by skin glue. The patient tolerated the procedure well. There was no immediate postprocedure complication. She was extubated in the operating room and was transferred to her room in stable condition. All counts were correct. Dr. Jerome was scrubbed and present and performed the critical portions of the operation. Electronically Signed by: Lalita Jerome M.D. 09/26/2020 03:04 P Lalita Jerome M.D. I was present for the entire procedure. Date Dict: 09/23/2020/09:30 Brad/Jose Carlos Meraz MD Date Trans: 09/23/2020 08:38 P/mmo [id number] Normal [facility] POC GLUCOSE LABon 09-23-2020 Glucose [Mass/Vol] 78 mg/dL Normal 70-100 [facility] Comment on above: Performed By: #### 8 [id number] #### [facility] [address] [place] [address], [facility] POC URINE PREGNANCYon 2020 Beta HCG ( test) Ql (U) Negative Normal NEGATIVE [facility] Comment on above: Result Comment: Perf ormed in PACU Performed By: #### 8 [id number] #### [facility] [address] [place] [address], [place] BASIC METABOLIC PANELon 08-25 Calcium [Mass/Vol] 9.2 mg/dL Normal 8.6-10.3 [facility] Comment on above: Performed By: #### 0 0071 #### [facility] [address] [place] [address], [place] Chloride [Moles/Vol] 102 mmol/L Normal 98-107 [facility] Comment on above: Performed By: #### 0 0071 #### [facility] [address] [place] [address], [place] CO2 [Moles/Vol] 32 mmol/L High 21-31 [facility] Comment on above: Performed By: #### 0 0071 #### [facility] [address] [place] [address], [place] Creatinine [Mass/Vol] 0.73 mg/dL Normal 0.60-1.20 [facility] Comment on above: Performed By: #### 0 0071 #### [facility] [address] [place] [address], [place] GFR/1.73 sq M.predicted among blacks MDRD (S/P/Bld) [Vol rate/Area] mL/min/{1.73_m2} Normal >60 [facility] Comment on above: Performed By: #### 0 0071 #### [facility] [address] [place] [address], [place] GFR/1.73 sq M.predicted among non-blacks MDRD (S/P/Bld) [Vol rate/Area] mL/min/{1.73_m2} Normal >60 [facility] Comment on above: Performed By: #### 0 0071 #### [facility] [address] [place] [address], [place] Glucose [Mass/Vol] 96 mg/dL Normal 70-100 [facility] Comment on above: Performed By: #### 0 0071 #### [facility] [address] [place] [address], [place] Potassium [Moles/Vol] 4.3 mmol/L Normal 3.5-5.1 [facility] Comment on above: Performed By: #### 0 0071 #### [facility] [address] [place] [address], [place] Sodium [Moles/Vol] 139 mmol/L Normal 136-145 [facility] Comment on above: Performed By: #### 0 0071 #### [facility] [address] [place] [address], [place] Urea nitrogen [Mass/Vol] 11 mg/dL Normal 7-25 [facility] Comment on above: Performed By: #### 0 0071 #### [facility] [address] [place] [address], [place] CBC COMPLETE BLOOD COUNTon 0 09-07-2020 Erythrocyte distribution width (RBC) [Ratio] 13.4 % Normal 11.5-15.0 [facility] Comment on above: Performed By: #### 5 0608 #### [facility] [address] [place] [address], [facility] Hematocrit (Bld) [Volume fraction] 39.6 % Normal 36.0-45.0 [facility] Comment on above: Performed By: #### 5 0608 #### [facility] [address] [place] [address], [facility] Hemoglobin (Bld) [Mass/Vol] 13.0 g/dL Normal 12.0-15.0 [facility] Comment on above: Performed By: #### 5 0608 #### [facility] [address] [place] [address], [facility] MCH (RBC) [Entitic mass] 27.8 pg Normal 27.0-33.0 [facility] Comment on above: Performed By: #### 5 0608 #### [facility] [address] [facility] [place] [address], [facility] MCHC (RBC) [Mass/Vol] 32.8 g/dL Normal 32.0-35.0 [facility] Comment on above: Performed By: #### 5 0608 #### [facility] [address] [place] [address], [facility] MCV (RBC) [Entitic vol] 84.8 fL Normal 82.0-98.0 [facility] Comment on above: Performed By: #### 5 0608 #### [facility] [address] [facility] [place] [address], [facility] Nucleated RBC/100 WBC (Bld) [Ratio] 0 % Normal 0-0 [facility] Comment on above: Performed By: #### 5 0608 #### [facility] [address] [place] [address], [facility] PLAT CNT 324 10*3/uL Normal 150-400 [facility] Comment on above: Performed By: #### 5 0608 #### [facility] [address] [facility] [place] [address], [facility] RBC (Bld) [#/Vol] 4.67 10*6/uL Normal 3.80-5.00 [facility] Comment on above: Performed By: #### 5 0608 #### [facility] [address] [facility] [place] [address], [facility] WBC (Bld) [#/Vol] 11.86 10*3/uL High 4.00-10.60 [facility] Comment on above: Performed By: #### 5 0608 #### [facility] [address] PROTHROMBIN TIMEon 1 INR Coag (PPP) [Relative time] 0.97 {INR} Normal 0.91-1.16 [facility] Comment on above: Result Comment: ACCC P RECOMMENDED INR FOR WARFARIN THERAPY ---- ------- CONDITION INR PROPHYLAXIS OF VENOUS THROMBOSIS 2-3 (HIGH-RISK SURGERY) TREATMENT OF VENOUS THROMBOSIS 2-3 TREATMENT OF PULMONARY EMBOLISM 2-3 PREVENTION OF SYSTEMIC EMBOLISM: 2-3 ACUTE MYOCARDIAL INFARCTION TISSUE HEART VALVES VALVULAR HEART DISEASE ATRIAL FIBRILLATION RECURRENT SYSTEMIC EMBOLISM MECHANICAL HEART VALVE 2.5-3.5 FROM: ORAL ANTICOAGULANTS. MECHANISM OF ACTION, CLINICAL EFFECTIVENESS, AND OPTIMAL THERAPEUTIC RANGE. CHEST 1995;108:231S-246S. Performed By: #### 5 6101 #### [facility] [address] [place] [address], [facility] PT Coag (PPP) [Time] 12.9 s Normal 12.3-14.8 [facility] Comment on above: Result Comment: ALL RESULTS MUST BE INTERPRETED WITH RESPECT TO BLOOD DRAWING ARTIFACT OR DILUTION ERROR OF ANTICOAGULANT AT THE TIME OF SAMPLING. Performed By: #### 5 6101 #### [facility] [address] [facility]. [address] Lab Reportson 09-05-2020 Lab Reports [id number] :127 Normal [facility] Ambulatory Clinical Summaryo n 09-02-2020 Ambulatory Clinical Summary {[id number] Normal [facility] General Surgery Office/Clini c Noteon 09-02-2020 General Surgery Office/Clinic Note Chief Complaint Epigastric pain HPI Staff 30 year old female present today referred by ER for symptoms of mid epigastric pain on 08/30. Patient c/o nausea and vomiting. She associates the pain with foods she has consumed. She does not take any coagulants. Patient had US performed on History of Present Illness 30 yo female with extreme obesity, referred from ED for epigastric pain and cholelithiasis; seen in ED 3 days ago; elevated transaminases, normal wbc and lipase, normal bili; has had intermittent epigastric pain over past 2 weeks, sharp, some radiation to chest; some associated nausea and loose stools; no fevers; no emesis; worse with eating any type of food; no h/o jaundice or pancreatitis; had similar symptoms several years ago, no US done then; GB US in ED, personally reviewed, with multiple stones within gallbladder, no wall thickening, no ductal dilation; only abdominal operation ; on zofran now for nausea, not taking pain meds. smokes 1/2 ppd. Review of Systems PHQ Score Initial Depression Screen Score: 2 ROS - Provider Constitutional: no fever, no sweats, no weight loss. Eyes: no glasses, no blurred vision, no visual loss. ENMT: no dentures, no hoarseness, no swallowing difficulties, no hearing loss, no ear infection(s), no nose bleeds. Cardiovascular: normal blood pressure, no chest pain, regular heartbeat, no heart murmur. Respiratory: no shortness of breath, yes cough, no asthma, yes wheezing. Gastrointestinal: yes nausea, no vomiting, yes diarrhea, no constipation, no blood in stool, no change in bowel habits, yes abdominal pain, no hepatitis. Genitourinary: no kidney stones, no urine infection, no dysuria. Musculoskeletal: no pain, no weakness. Skin: no changing moles, no rash, no skin lumps. Neurologic: no seizures, no epilepsy, no headache. Psychiatric: no emotional or psychiatric problem. Heme/Lymph: no bleeding problems, no anemia, no blood clots, no transfusions. Allergy/Immunologic: no swollen lymph nodes/glands, no IV drug abuse. Other: Additional ROS info: Except as noted in the above Review of Systems and in the History of Present Illness, all other systems have been reviewed and are negative or noncontributory. Physical Exam Vitals & Measurements T: 36.8 ?C (Tympanic) BP: 128/86 HT: 160.02 cm HT: 160.0 cm WT: 156.035 kg WT: 156.0 kg BMI: 60.94 HEENT: normal conjunctiva, sclera clear, no scleral icterus, EOM intact, PERRLA, oral mucosa moist without lesions. Neck: trachea midline, no mass, symmetric, no thyromegaly or nodules, no adenopathy Respiratory: lungs expiratory wheezes, respirations non labored. Cardiovascular: regular rate and rhythm, no murmur, no pedal edema or varicosities. Gastrointestinal: obese, soft, non distended, no tenderness, no masses, no palpable hernias, diastasis recti no, no hepatosplenomegaly; normal bs Musculoskeletal: normal gait, digits and nails without infection, nodes, cyanosis, clubbing. Skin: no rashes, no lesions, no ulcers, no subcutaneous nodules, induration. Psychiatric/Neuro: oriented to time, place, person, judgement normal, affect appropriate for age, insight intact, no focal deficits. Tests: labs reviewed, x-rays reviewed, review of old records completed, Discussed surgical options, risks, and possible complications with patient. Assessment/Plan 1. Cholelithiasis (K80.20: Calculus of gallbladder without cholecystitis without obstruction) concerned about possible choledocholithiasis due to primarily epigastric pain and elevated lfts; recheck lfts, amylase/lipase today, will call patient if results abnormal; will refer to Dr Jerome at [facility] in [place] due to patient being high risk for surgical intervention due to BMI over 60 and tobacco use. patient to maintain low fat diet; return to ED if worsening pain or persistent nausea/vomiting; off work until further workup or surgery. Ordered: ondansetron, 4 mg = 1 tab(s), Oral, q6hr, PRN Nausea, # 15 tab(s), Refills(s) 0, Pharmacy: [facility] 1628, 160, cm, 09/02/20 10:50:00 EDT, Height/Length Dosing, 156, kg, 09/02/20 10:50:00 EDT, Weight Dosing Amylase Level [facility] External Ambulatory Referral Hepatic Function Panel Lipase Level Most recent diastolic blood pressure >=90 mm Hg 3080F Most recent systolic blood pressure >= 140 mm Hg 3077F 2. Epigastric pain (R10.13: Epigastric pain) see # 1 3. Abnormal LFTs (liver function tests) (R94.5: Abnormal results of liver function studies) see # 1 Ordered: ondansetron, 4 mg = 1 tab(s), Oral, q6hr, PRN Nausea, # 15 tab(s), Refills(s) 0, Pharmacy: [facility] 1628, 160, cm, 09/02/20 10:50:00 EDT, Height/Length Dosing, 156, kg, 09/02/20 10:50:00 EDT, Weight Dosing Amylase Level [facility] External Ambulatory Referral Hepatic Function Panel Lipase Level 4. Nausea (R11.0: Nausea) see # 1 5. BMI 60.0-69.9, adult (Z68.44: Body mass index [BMI] 60.0-69.9, adult) see # 1; recommend diet and exercise. Ordered: ondansetron, 4 mg = 1 tab(s), Oral, q6hr, PRN Nausea, # 15 tab(s), Refills(s) 0, Pharmacy: [facility]28, 160, cm, 09/02/20 10:50:00 EDT, Height/Length Dosing, 156, kg, 09/02/20 10:50:00 EDT, Weight Dosing Amylase Level Current tobacco smoker 1034F [facility] External Ambulatory Referral Hepatic Function Panel Lipase Level Most recent diastolic blood pressure >=90 mm Hg 3080F Most recent systolic blood pressure >= 140 mm Hg 3077F 6. Tobacco use (Z72.0: Tobacco use) We strongly recommend to quit tobacco use. Cigarette smoking harms nearly every organ of the body, causes many diseases, and reduces the health of smokers in general. Quitting smoking lowers your risk for smoking-related diseases and can add years to your life. We encourage you to visit www.smokefree.gov access to helpful resources including free telephone support. If you decide on prescription treatment to help you quit, your family doctor would be happy to provide these. Ordered: ondansetron, 4 mg = 1 tab(s), Oral, q6hr, PRN Nausea, # 15 tab(s), Refills(s) 0, Pharmacy: [facility], 160, cm, 09/02/20 10:50:00 EDT, Height/Length Dosing, 156, kg, 09/02/20 10:50:00 EDT, Weight Dosing Amylase Level Current tobacco smoker 1034F [facility] External Ambulatory Referral Hepatic Function Panel Lipase Level Most recent diastolic blood pressure >=90 mm Hg 3080F Most recent systolic blood pressure >= 140 mm Hg 3077F Follow-up No qualifying data available Problem List/Past Medical History Ongoing Abnormal LFTs (liver function tests) BMI 60.0-69.9, adult Cholelithiasis Epigastric pain Nausea Smoker Tobacco use Historical No qualifying data Procedure/Surgical History section. Medications busPIRone 15 mg Tab, 15 mg= 1 tab(s), Oral, BID Cymbalta 60 mg Cap-DR, 60 mg, Oral, Daily Zofran 4 mg Tab, Oral, q8hr Zofran 4 mg Tab, 4 mg= 1 tab(s), Oral, q6hr, PRN Allergies penicillin (anaphylaxis) Social History Alcohol Current, 12/04/2018 Substance Abuse Current, 12/04/2018 Tobacco 10 or more cigarettes (1/2 pack or more)/day in last 30 days Tobacco Use:. Never Smokeless Tobacco Use:. Cigarettes, Started age 21.0 Years. Previous treatment: None. Ready to change: No., 09/02/2020 Family History Cervical cancer: Mother. [facility] Comment on above: Result Comment: Elec tronically Signed By: IRINA BOSCH, Ferny Evansbr\Date and Time Signed: 09/02/20 12:20 EDT Provider Letteron 09-02-2020 Provider Letter (Inserted Image. Yasmin ble to display) September 02, [address] [place] [address] FABY MCCONNELL 1990 To Whom It May Concern, Please excuse above patient from work. Date of Illness: From: 09/02/2020 To: until seen by specialist Dr Jerome May Return to Work On: after evaluated by Dr Jerome will be up to him Comments: referral has been made to Dr Jerome waiting on appointment to be scheduled. Sincerely, Dr Ferny Arambula [facility] Consultation Noteon 09-02-19 Consultation Note [id number] D:127 [facility] ED Note-Physicianon 09-02-19 ED Note-Physician [id number] :127 [facility] ED Note-Physician [id number] :127 [facility] Comment on above: Other Comment: DORINA JACK JUVENAL CRR Vital Signs Date Time Vital Sign Value Performing Clinician Fran benjamin 09-12-2023 11:01040 Body height 160.02 cm Niecy Molina Work Phone: [facility] 09-12-2023 11:01040 Body temperature 98.4 [degF] Niecy Molina Work Phone: [facility] 09-12-2023 11:01040 Body weight 176 kg Niecy Molina Work Phone: [facility] 09-12-2023 11:01-0400 Diastolic blood pressure 97 mm[Hg] Niecy Aichholz Work Phone: [facility] 09-12-2023 11:01-0400 Heart rate 87 /min Niecy Aichholz Work Phone: [facility] 09-12-2023 11:01-0400 Respiratory rate 18 /min Niecy Aichholz Work Phone: [facility] 09-12-2023 11:01-0400 SaO2% (BldA) [Mass fraction] 99 % Niecy Aichholz Work Phone: [facility] 09-12-2023 11:01-0400 Systolic blood pressure 166 mm[Hg] Niecy Aichholz Work Phone: [facility] Encounters Encounter Date Encounter Type Care Provider Facility Start: 09-19-2023 End: 09-19-2023 ambulatory NIECY AICHHOLZ Not Available Start: 09-12-2023 End: 09-12-2023 Emergency department patient visit Dung Cespedes Facility:[facility] Start: 09-12-2023 End: 09-12-2023 Emergency department patient visit Niecy Olvinholz Work Phone: [facility] Work Phone: Start: 04-22-2022 End: 04-22-2022 ambulatory CECILIO ALMARAZ Facility:[facility] Start: 12-29-2021 End: 12-29-[address] TAD STAFFORD Facility:[facility] Start: 10-11-2021 End: 10-11-2021 ambulatory FIELD ASSOCIATE NIECY AICHHOLZ Facility:[facility] Start: 08-15-2021 End: 08-15-2021 ambulatory FIELD ASSOCIATE NIECY AICHHOLZ Facility:[facility] Start: 05-21-2021 End: 05-21-[address] SEE C[place]AND Facility:[facility] Start: 05-17-2021 End: 05-18-2021 ambulatory FIELD ASSOCIATE NIECY AICHHOLZ Facility:[facility] Start: 09-23-2020 End: 09-24-2020 ambulatory LALITA JEROME Facility:[facility] Procedures Date Procedure Procedure Detail Performing Clinician Start: 09-23-2020 Anes intraperitoneal upper abdomen w/laps nos KATE Jude REEDER Start: 09-23-2020 Laparoscopic cholecystectomy LALITA JEROME Plan of Treatment Date Care Activity Detail Author Patient Education Skin Abscess [facility] Work Phone: Patient referral [facility] Work Phone: Payers Date Payer Category Payer Self-pay [id number] 2022 Medicaid [id number] 1990 Unknown [id number] 1990 Unknown [id number] 1990 Unknown [id number] 1990 Unknown [id number] 1990 Unknown [id number] 1990 Unknown [id number] [id number] 1990 Unknown [id number] [id number] 1990 Unknown [id number] 1959 Unknown [id number] Private Health Insurance [employer] [id number] Unknown [id number] Unknown [id number] Social History Date Type Detail Facility Start: 09-12-2023 Tobacco smoking status NHIS Smoker (finding) [facility] Start: 1990 Sex Assigned At Female F [facility] NEGATED: Highlighted row Aliza [facility] Evaluation note Note Date & Type Note Facility Evaluation note No assessment information availa ble [facility] Work Phone: Summary Purpose Family History No Family History Records FoundNo Family History Records FoundNo Family History Records FoundNo Family History Records FoundNo Family History Records Found Advance Directives No Advanced Directives Records Found Advance Directive Response Recorded Date/ Time Advance Directives No October 15 3:54pm Chief Complaint and Reason for Visit Chief Complaint neck wound Additional Source Comments INFORMATION SOURCE (unrecogn ized section and content) DATE CREATED AUTHOR 09/05/2020 [facility] DATE CREATED AUTHOR AUTHOR'S ORGANIZ ATION 11/12/2020 [facility] DATE CREATED AUTHOR AUTHOR'S ORGANIZ ATION 05/16/2022 [facility] pital DATE CREATED AUTHOR AUTHOR'S ORGANIZ ATION 09/21/2023 [facility] EPIC DATE CREATED AUTHOR AUTHOR'S ORGANIZ ATION 09/24/2023 [facility] ys[facility] Group Care Teams (unrecognized sec tion and content) Team Status: Active Member Role Status Dates Niecy Molina Primary Care Provider Active Team Status: Inactive Member Role Status Dates Niecy Molina Primary Care Provider Active Sta rt: September 12, 2023 End: September 12, 2023 Dung Cespedes APRN Emergency Provider Active Start: September 12, 2023 End: September 12, 2023 Goals (unrecognized section and content) Goals may be documented in a n alternate section FOR RECORDS PERTAINING TO PATIENTS WHO ARE OR HAVE BEEN ENROLLED IN A CHEMICAL DEPENDENCY/SUBSTANCEABUSE PROGRAM, SOME INFORMATION MAY BE OMITTED. This clinical summary was aggregated from multiple sources. Caution should be exercised in using it in the provision of clinical care. This summary normalizes information from multiple sources, and as a consequence, information in this document may materially change the coding, format and clinical context of patient data. In addition, data may be omitted in some cases. CLINICAL DECISIONS SHOULD BE BASED ON THE PRIMARY CLINICAL RECORDS. [facility]. provides no warranty or guarantee of the accuracy or completeness of information in this document.
[2023-10-02 07:17] LABS: Basophils Absolute Auto 0.1 10^3/uL (0.0-0.1); Basophils Percent Auto 0.9 % (0.2-2.0); Eosinophils Absolute Auto 0.3 10^3/uL (0.0-0.7); Eosinophils Percent Auto 3.4 % (0.9-7.0); Hematocrit 43.5 % (36.0-48.0); Hemoglobin 13.7 g/dL (12.0-16.0); Immature Granulocytes Abs Auto 0.03 10^3/uL (0.00-0.03); Immature Granulocytes Pct Auto 0.3 % (0.0-0.5); Lymphocytes Absolute Auto 4.4 10^3/uL (1.2-3.8); Mean Corpuscular HGB Conc 31.5 g/dL (29.9-35.2); Mean Corpuscular Volume 85.8 fL (81.0-99.0); Mean Platelet Volume 9.5 fL (9.5-13.5); Monocytes Absolute Auto 0.6 10^3/uL (0.3-0.8); Monocytes Percent Auto 5.7 % (1.7-12.0); Neutrophils Absolute Auto 4.4 10^3/uL (1.4-6.5); Neutrophils Percent Auto 44.7 % (43.0-75.0); Platelet Count 284 10^3/uL (150-450); Red Blood Count 5.07 10^6/uL (4.20-5.40); Red Cell Distribution Width 14.2 % (11.0-15.0); White Blood Count 9.8 10^3/uL (4.0-11.0)
[2023-10-02 07:42] LABS: Creatinine Urine Random 134.96 mg/dL (20.00-300.00); Microalbum Creatinine Ratio Ur 9.6 mg/g (0.0-29.9); Microalbumin Urine Random <1.3 mg/dL (<=30.0)
[2023-10-02 07:44] LABS: Estimated Average Glucose 114 mg/dL; Glycohemoglobin A1C 5.6 % (4.5-6.2)
[2023-10-02 08:46] LABS: Bilirubin Urine NEGATIVE (NEGATIVE); Blood Urine TRACE-I (NEGATIVE); Clarity Urine CLOUDY (CLEAR); Color Urine YELLOW (YELLOW); Glucose Urine UA NEGATIVE (NEGATIVE); Ketones Urine NEGATIVE (NEGATIVE); Leukocyte Esterase Urine NEGATIVE (NEGATIVE); Nitrite Urine NEGATIVE (NEGATIVE); Protein Urine TRACE mg/dL (NEG/TRACE); pH Urine >=9.0 (5.0-9.0)
[2023-10-02 08:55] LABS: Urine Microscopic Indicated YES
[2023-10-02 09:18] LABS: Amorphous Sediment Urine FEW; Bacteria Urine SMALL #/HPF (NONE SEEN); Cast Seen? NONE SEEN #/LPF (NONE SEEN); Crystals Seen? Seen #/HPF (None Seen); Mucus Urine NONE SEEN (NONE SEEN); Squamous Epithelial Cell Urine MANY #/LPF (NONE/RARE); Triple Phosphate Crystal Urine MODERATE; WBC Urine 0-2 #/HPF (NONE SEEN)
[2023-10-02 09:48] LABS: Alanine Aminotransferase 35 U/L (14-59); Albumin Globulin Ratio 0.8; Albumin Level 3.4 g/dL (3.4-5.0); Alkaline Phosphatase 76 U/L (46-116); Anion Gap 11.5; Aspartate Amino Transferase 22 U/L (15-37); BUN Creatinine Ratio 21.8; Bilirubin Total 0.5 mg/dL (0.2-1.0); Calcium 9.1 mg/dL (8.5-10.1); Carbon Dioxide 28.2 mmol/L (21.0-32.0); Chloride 102 mmol/L (98-107); Cholesterol 157 mg/dL (<=200); Estimated GFR (African America >60 (>=60); Estimated GFR (Non-African Ame >60 (>=60); Globulin 4.3 g/dL; Glucose 84 mg/dL (74-106); HDL Cholesterol 52 mg/dL (40-60); Potassium 4.7 mmol/L (3.5-5.1); Sodium 137 mmol/L (136-145); Thyroid Stimulating Hormone 2.455 uIU/mL (0.358-3.740); Total Protein 7.7 g/dL (6.4-8.2); Triglycerides 95 mg/dL (<=150)
== END 2023-10-02 06:58 | disposition home or self-care (01) ==
LOC: LAB 06:57
PROVIDERS: PCP Nurse Practitioner; Visit Provider Nurse Practitioner
DX: R79.89 Other specified abnormal findings of blood chemistry (principal); Z72.0 Tobacco use; I10 Essential (primary) hypertension; E66.01 Morbid (severe) obesity due to excess calories; R31.21 Asymptomatic microscopic hematuria; L02.91 Cutaneous abscess, unspecified
CPT/HCPCS: 36415; 80053; 80061; 81001; 82043; 82570; 83036; 84443; 85025

== ENCOUNTER 2024-03-05 14:17 | Outpatient (OUT) | payer MEDICAID, SELFPAY ==
[2024-03-05 15:17] LABS: Anion Gap 9.9; BUN Creatinine Ratio 10.5; Calcium 8.9 mg/dL (8.5-10.1); Carbon Dioxide 29.7 mmol/L (21.0-32.0); Chloride 101 mmol/L (98-107); Estimated GFR (African America >60 (>=60 mL/min/1.73m^2); Estimated GFR (Non-African Ame >60 (>=60 mL/min/1.73m^2); Glucose 106 mg/dL (74-106); Potassium 4.6 mmol/L (3.5-5.1); Sodium 136 mmol/L (136-145)
== END 2024-03-05 14:18 | disposition home or self-care (01) ==
LOC: LAB 14:18
PROVIDERS: PCP Nurse Practitioner; Visit Provider Nurse Practitioner
DX: R60.0 Localized edema (principal)
CPT/HCPCS: 36415; 80048

== ENCOUNTER 2024-11-22 16:36 | Emergency (ER) | payer MEDICAID, SELFPAY ==
--- OUTSIDE RECORDS SUMMARY | 2023-06-13 11:25 | XMS_ITS ---
Author Organization [facility] Address [address] [place] [address] Care Team Providers [employer] Supervisor Name Role Phone Dr. Thee Sin Primary Care Provider REASON FOR VISIT ADJUSTMENT Encounters Encounter Location Date Provider Diagnosis [facility] [address] [place] [address] 06/13/2023 Thee Sin Plan Of Treatment No Information Progress Notes * TANYA MCCONNELLEDOB: 3 (34 yo F)Acc No.[id number]:06/13/2023 Dental Visit Patient: TAMIKO MCNEILL Provider: Alan Sin DDS :1990 A ge:32 Y S ex:Female Date:06/13/2023 Address:[address] [place], [place] [id number] Subjective: * Chief Complaints: * 1 . ADJUSTMENT. * Medical History: Objective: * Vitals: Assessment: Plan: * Treatment: * Images: * Electronic signature of Dr. Thee Sin , DMD on 11/22/2024 at 04:44 PM EDT Sign off status: Pending * Provider: Alan Sin DDS Date: 06/13/2023 Generated for Printi ng/Faxing/eTransmitting on: 0 11/22/2024 04:44 PM EDT
[2024-11-22 16:40] VITALS: BP 160/98; PULSE 95; TEMP 37; O2SAT 98; BMI 46.9
--- OUTSIDE RECORDS SUMMARY | 2024-11-22 16:44 | XMS_ITS | Encounter Summary ---
Author Organization [facility] Address [address] [place] [address] Care Team Providers Care Press Feeder Broomcorn Name Role Phone Niecy Molina PLUMBING DRAFTER Unavailable [phone] Alonzo Tipton MD Primary Care Provider [phone] Unallocated, Shelley Julio MD Primary Care Provi clara Alonzo Tipton MD Primary Care Provider [phone] Encounter Details Date Type Department Care Team (Late st Contact Info) Description 07/08/2023 Abstract [facility] [address] [place] [phone] Niecy Molina, PLUMBING DRAFTER [address] [place] [phone] Social History Tobacco Use Types Packs/Day Years Used Date Smoking Tobacco: Never Assessed Comments Unknown Sex and Gender Information Value Date Recorded Sex Assigned at Not on file Legal Sex Female 6:45 PM EDT Gender Identity Not on file Sexual Orientation Not on file documented as of this encounter Plan of Treatment Not on file documented as of this encounter Visit Diagnoses Not on filedocumented in this encounter Care Teams Press Feeder Broomcorn Relationship Specialty Start Date End Date Alonzo Tipton MD [address] [place] [phone] PCP - General Family Medicine 07/08/23 03/17/24 UnallocatShelley rajput MD [address] [place] [address] PCP - General Family Medicine 03/18/24 03/25/24 Alonzo Tipton MD [address] [place] [address] PCP - General Family Medicine 03/26/24 Niecy Molina NP [address] [place] [phone] Referring Physician Nurse Practitioner 12/12/22 documented as of this encounter
--- OUTSIDE RECORDS SUMMARY | 2024-11-22 16:44 | XMS_ITS | Patient Health Record ---
Author Organization [facility] Address [address] [place] [address] Care Team Providers Care Mortising Machine Operator Name Role Phone Dr. Thee Sin Primary Care Provider Reason For Referral No Information Medications Medication SIG (Take, Route, Fr equency, Duration) Notes Start Date End Date Status Ibuprofen 800 MG 1 tablet with food o r milk as needed Orally Three times a day 04/30/2022 Active Ibuprofen 800 MG 1 tablet with food o r milk as needed Orally Three times a day 03/08/2022 Active Plan Of Treatment No Information Insurance Providers Payer Name Payer Address Payer Phone Subscriber Number Group Number Insured Name Patient Relationship to Insured Coverage Start Date Coverage End Date z[employer]OUN T ADVANTAGE -termed 22 [address] [place] [address] [id number] TAMIKO MCCONNELL Self - patient is the insured 2 3 [employer] [place] Medicaid [address] [place] [address] [id number] TAMIKO MCCONNELL Self - patient is the insured 3 zMEDICAID CF after PARAMOUNT -termed 22 [address] [place] [address] [id number] TAMIKO MCCONNELL Self - patient is the insured 2 3 [facility] [address] [place] [address] [id number] TAMIKO MCCONNELL Self - patient is the insured 3 zDENTAL DQ PARAMOUNT -termed 22 [address] [place] [address] [id number] TAMIKO MCCONNELL Self - patient is the insured 2 3 zDental MEDICAID [facility] after PARAMOUNT -termed 22 [address] [place] [address] [phone] [id number] TAMIKO MCCONNELL Self - patient is the insured 2 3 Dental [employer] DQ [address] [place] [address] [id number] TAMIKO MCCONNELL Self - patient is the insured 3 Dental Wrap [employer] [address] [place] [address] [id number] TAMIKO MCCONNELL Self - patient is the insured 3
--- OUTSIDE RECORDS SUMMARY | 2024-11-22 16:44 | XMS_ITS | Referral Summary ---
Author Organization [facility] Address [address] [place] [address] Care Team Providers Care Art Teacher Name Role Phone Unavailable Primary Care Provider Unavailabl e Social History Tobacco Use Types Packs/Day Years Used Date Smoking Tobacco: Never Assessed [place] Safety & Environment Answer Date Rec orded Fear of Current or Ex-Partner Not on file Emotionally Abused Not on file 07/18/2023 Physically Abused Not on file 07/18/2023 Sexually Abused Not on file 07/18/2023 Physically or Sexually Abused Not on file Comments Unknown Sex and Gender Information Value Date Recorded Sex Assigned at Not on file Legal Sex Female 12:36 AM EDT Gender Identity Not on file Sexual Orientation Not on file Last Filed Vital Signs Vital Sign Reading Time Taken Comments Blood Pressure 136/83 10/05/2020 3:01 PM EDT Pulse 82 10/05/2020 3:01 PM EDT Temperature 36.9 C (98.4 F) 10/05/2020 3:00 PM EDT Respiratory Rate - - Oxygen Saturation - - Inhaled Oxygen Concentration - - Weight 112 kg (247 lb) 10/05/2020 2:58 PM EDT Height 160 cm (5' 3 ) 10/05/2020 2:58 PM EDT Body Mass Index 43.75 10/05/2020 2:58 PM EDT Plan of Treatment Not on file
--- OUTSIDE RECORDS SUMMARY | 2024-11-22 16:44 | XMS_ITS | Encounter Summary ---
Author Organization [facility] Address [address] [facility] [place] [address] Care Team Providers Care Independent Consultant Name Role Phone Niecy Molina NP Unavailable [phone] Alonzo Tipton MD Primary Care Provider [phone] Reason for Visit * Reason Comments Med Change Request Encounter Details Date Type Department Care Team ([facility] st Contact Info) Description 08/14/2024 Refill [facility] [address] [address] [place] [address] Amy Blackwood, QUALITY FACILITATOR [address] [place] [address] Sinus congestion; Acute non-recurrent maxillary sinusitis Social History Tobacco Use Types Packs/Day Years Used Date Smoking Tobacco: Every Day Cigarettes Smokeless Tobacco: Never Alcohol Use Standard Drinks/Week Comments Never 0 (1 standard drink = 0.6 oz pure alcohol) caffine: 1 cup of coffee daily, 1 energy drink daily Comments Unknown Sex and Gender Information Value Date Recorded Sex Assigned at Not on file Legal Sex Female 6:45 PM EDT Gender Identity Not on file Sexual Orientation Not on file documented as of this encounter Plan of Treatment Not on file documented as of this encounter Visit Diagnoses Diagnosis Sinus congestion Other diseases of nasal cavity and sinuses Acute non-recurrent maxillary sinusitis documented in this encounter Care Teams Independent Consultant Relationship Specialty Start Date End Date Alonzo Tipton MD [address] [place] [address] PCP - General Family Medicine 03/26/24 Niecy Molina NP [address] [place] [phone] Referring Physician Nurse Practitioner 12/12/22 documented as of this encounter
--- OUTSIDE RECORDS SUMMARY | 2024-11-22 16:44 | XMS_ITS | Clinical Summary ---
Author Organization [facility] Address [address] [place] [address] Care Team Providers Care Advertising Account Representative Name Role Phone Unavailable Primary Care Provider [...]
--- OUTSIDE RECORDS SUMMARY | 2024-11-22 16:44 | XMS_ITS | Clinical Summary ---
Author Organization [facility] Address [address] [place] [address] Care Team Providers Care Chief Pharmacist Name Role Phone Niecy Molina NP Unavailable [phone] Alonzo Tipton MD Primary Care Provider [phone] Allergies Active Allergy Reactions Criticality Noted Date Comments Sulfamethoxazole-Trimethoprim Hives 2022 Penicillins 04/04/2023 Trimethoprim GI intolerance 04/30/2021 Medications cetirizine (ZyrTEC) 10 MG tabletIndicatio ns:Seasonal allergic rhinitis, unspecified trigger Take 1 tablet (10 mg) by mouth Daily 90 tablet 1 4 Active escitalopram (Lexapro) 10 MG tabletIndicatio ns:Anxiety Take 1 tablet (10 mg) by mouth Daily 90 tablet 1 4 Active albuterol HFA (Ventolin HFA) 90 mcg/act inhalerIndicati ons:Bronchitis Inhale 2 puffs every 6 (six) hours if needed for wheezing or shortness of breath 8 g 4 Active azithromycin (Zithromax) 200 MG/5ML suspensionIndic ations:Acute non-recurrent sinusitis of other sinus Day #1: 12.5ml, Day #2-#5: 6.25ml. 37.5 mL 5 Active spironolactone (Aldactone) 50 MG tabletIndicatio ns:Lower extremity edema Take 1 tablet (50 mg) by mouth Daily 90 tablet 5 01/25/20 25 Active spironolactone (Aldactone) 50 MG tabletIndicatio ns:Lower extremity edema Take 1 tablet (50 mg) by mouth Daily 90 tablet 1 10/27/19 25 Discontinu ed(Reorder ) Active Problems Problem Noted Date Diagnosed Date Other acute sinusitis 08/10/2024 Body mass index (BMI) 70 or greater, adult 06/18 Abnormal urinalysis 10/03/2023 Class 3 severe obesity without serious comorbidi ty in adult 09/19/2023 Anxiety 09/19/2023 Assessment & Plan (03/18/2024 3:47 PM EDT): Continue with current meds Fu in 3 months Assessment & Plan (10/03/2023 4:31 PM EDT): Will have her stop the buspirone d/t side effects Start lexapro at 10mg daily Take medication only as directed. This medication will take approximately 4-6 weeks to become effective. If any suicidal thoughts, thoughts of hurting others, or hallucinations contact the office or proceed to the Emergency Room for mental health evaluation. Medication may cause dry mouth, dizziness, and in some cases worsening in depression symptoms. Please contact the office if these occur. Fu in 4 weeks Assessment & Plan (09/19/2023 4:34 PM EDT): Would prefer to use a prn med Will order buspar 5mg q 12 prn anxiety Fu in 3 weeks Unspecified convulsions 07/11/2023 Obstructive sleep apnea, adult 07/11/2023 Tension headache 07/11/2023 Primary hypertension 07/11/2023 Assessment & Plan (03/18/2024 3:45 PM EDT): Stable at this time, no med dose chagnes Assessment & Plan (09/19/2023 4:36 PM EDT): Not currently on meds at this time, and will check updated labs Elevated LFTs 07/11/2023 Asymptomatic microscopic hematuria 07/11/2023 Lower extremity edema 07/11/2023 Assessment & Plan (03/18/2024 3:46 PM EDT): Feels that aldactone 50mg daily Wants to stay at current dose Looses insurance at the end of month Until beginning of the year, requesting 90 day supply Fu in 3 months Assessment & Plan (02/13/2024 4:53 PM EDT): Not regularly taking lasix Will trial aldactone at 50mg daily Fu in 4 weeks for recheck Labs 1 week prior to appt Tobacco user 07/11/2023 Assessment & Plan (03/18/2024 7:11 AM EDT): The patient has been advised of the risks of continued smoking: stroke, AR, all forms of cancer, lung disease, and . Options for quitting smoking include: cold turkey, hypnosis, acupuncture, nicotine replacement meds (gum, lozenges, and patches), Buproprion, and Varenicline. At this time pt is encouraged to evaluate their goals for wanting to quit smoking, and reach out to provider when ready to start this process Assessment & Plan (02/13/2024 3:34 PM EDT): Smokes about : 1/2 ppd The patient has been advised of the risks of continued smoking: stroke, AR, all forms of cancer, lung disease, and . Options for quitting smoking include: cold turkey, hypnosis, acupuncture, nicotine replacement meds (gum, lozenges, and patches), Buproprion, and Varenicline. At this time pt is encouraged to evaluate their goals for wanting to quit smoking, and reach out to provider when ready to start this process Headache, migraine 07/11/2023 Depression with anxiety 07/11/2023 Overview (06/18/2024): HEMAL 7 score= PHQ 9 score= Allergic rhinitis 07/11/2023 Assessment & Plan (03/18/2024 3:47 PM EDT): Refilled meds Resolved Problems Problem Noted Date Diagnosed Date Resolved Date Morbid (severe) obesity due to excess calories 07/02/2024 07/02/2024 Morbid (severe) obesity due to excess calories 06/18/2024 06/18/2024 Abscess 09/19/2023 03/18/2024 Assessment & Plan (10/03/2023 4:32 PM EDT): Finished atb, continued healing Assessment & Plan (09/19/2023 4:33 PM EDT): Cleansed, recommend cleaning with peroxide and water daily clean dressing applied Wound culture obtained, will change atb if needed Suspect this is a rufus. Cyst Fu in 2 weeks for recheck Dental infection 07/11/2023 07/11/2023 Cutaneous candidiasis 07/11/20232023 Bilateral acute serous otiti s media, recurrence not specified 07/11/2023 07/11/2023 Tonsillitis 07/11/2023 07/11/2023 Encounters Date Type Department Care Team Description 10/26/2024 Refill [facility] [address] [place] [address] Niecy Molina NP Lower extremity edema from Last 3 Months Family History Medical History Relation Name Comments Cancer Mother Diabetes Mother Relation Name Status Comments Mother Social History Tobacco Use Types Packs/Day Years Used Date Smoking Tobacco: Every Day Cigarettes Smokeless Tobacco: Never Tobacco Cessation:Ready to Q uit: Not Asked; Counseling Given: Not Answered Alcohol Use Standard Drinks/Week Comments Never 0 [...] Sign Reading Time Taken Comments Blood Pressure 168/62 08/14/2024 12:31 PM EDT Pulse 98 08/14/2024 12:31 PM EDT Temperature 35.6 C (96.1 F) 08/14/2024 12:31 PM EDT Respiratory Rate 20 08/14/2024 12:31 PM EDT Oxygen Saturation 95% 08/14/2024 12:31 PM EDT Inhaled Oxygen Concentration - - Weight 176 kg (389 lb) 08/14/2024 12:31 PM EDT Height 160 cm (5' 3 ) 03/18/2024 3:26 PM EDT Body Mass Index 68.91 03/18/2024 3:26 PM EDT Plan of Treatment Health Maintenance Due Date Last Done Comments Pap Smear 2013 Cervical Cancer Screening 2022 HPV/Cotest 2022 Influenza Vaccine Discontinued Insurance [facility] Care Teams Chief Pharmacist Relationship Specialty Start Date End Date Alonzo Tipton MD [address] [place] [phone] PCP - General Family Medicine 03/26/24 Niecy Molina NP [address] [place] [phone] Referring Physician Nurse Practitioner 12/12/22
--- OUTSIDE RECORDS SUMMARY | 2024-11-22 16:45 | XMS_ITS | CCD ---
Author Organization [facility] Care Team Providers Care Livestock Haulier Name Role Phone LALITA JEROME Surgeon Unavailable LALITA JEROME Attending Unavailable LALITA JEROME Admitting Unavailable CT Procedure Practitioner Unavailab le AICHHOLZ, NIECY Referring Unavailable AICHHOLZ, NIECY Primary Care Unavailable KATE BRADY Surgeon Unavailable CT Procedure Practitioner Unavailab le AICHHOLZ, FRONT OFFICE DEVELOPER NIECY Admitting Unavailable AICHHOLZ, FRONT OFFICE DEVELOPER NIECY Attending Unavailable AICHHOLZ, FRONT OFFICE DEVELOPER NIECY Consulting Unavailable AICHHOLZ, FRONT OFFICE DEVELOPER NIECY Primary Care Unavailable AICHHOLZ, FRONT OFFICE DEVELOPER NIECY Admitting Unavailable AICHHOLZ, FRONT OFFICE DEVELOPER NIECY Attending Unavailable AICHHOLZ, FRONT OFFICE DEVELOPER NIECY Consulting Unavailable AICHHOLZ, FRONT OFFICE DEVELOPER NIECY Primary Care Unavailable AICHHOLZ, FRONT OFFICE DEVELOPER NIECY Admitting Unavailable AICHHOLZ, FRONT OFFICE DEVELOPER NIECY Attending Unavailable AICHHOLZ, FRONT OFFICE DEVELOPER NIECY Consulting Unavailable AICHHOLZ, FRONT OFFICE DEVELOPER NIECY Primary Care Unavailable DR SEE [place] Admitting Unavailable AICHHOLZ, FRONT OFFICE DEVELOPER NIECY Primary Care Unavailable DR SEE [place] Attending Unavailable MEGHA, DR CUI Consulting Unavailable NYDIA, DR TAD Walls Attending Unavailable CHEPE AGUILA Consulting Unavailable DR TAD STAFFORD Admitting Unavailable AICHHOLZ, FRONT OFFICE DEVELOPER NIECY Primary Care Unavailable CECILIO ALMARAZ Attending Unavailable CECILIO ALMARAZ Consulting Unavailable CECILIO ALMARAZ Admitting Unavailable AICHHOLZ, FRONT OFFICE DEVELOPER NIECY Primary Care Unavailable Aichholz, Niecy J Primary Care Provider YAA Cespedes Emergency Provider Dung Cespedes Attending Unavailable Dung Cespedes Admitting Unavailable Aichholz, Niecy Phillips Primary Care Unavailable Aichholz END WORKER, Niecy Unavailable Danuta BOSCH, Alonzo Primary Care Provider [phone] Unallocated , [place] Provider Primary Care Eyali clara Alonzo Tipton MD Primary Care Provider ISABELLA SZYMANSKI Attending Unavailable NIECY MOLINA Attending Unavailable NIECY MOLINA Attending Unavailable NIECY MOLINA Attending Unavailable VAL, NIECY Attending Unavailable BUBBA CONTRERAS Attending Unavailable WORKBUBBA RIZO Referring Unavailable Allergies Allergy Classification Reported Allergen(s) Allergy Type Date of Onset Reaction(s) Facility Penicillins (antibiotic) (1 source) Penicillin; Translations: [PENICILLIN] Drug Allergy 09-16-19 21 The [facility] Sulfamethoxazole / Trimethoprim (1 source) Sulfamethoxazole / Trimethoprim; Translations: [BACTRIM] Drug Allergy 09-16-19 21 The [facility] (2 sources) Penicillins Drug allergy (disorder) 10-11-[address] [facility] (2 sources) Sulfamethoxazole; Translations: [sulfamethoxazole] Drug Allergy 09-12-19 24 Vomiting [facility] (14 sources) Trimethoprim; Translations: [trimethoprim] Drug Allergy 04-30-20 21 GI intolerance [facility] (1 source) Penicillins Drug allergy (disorder) 09-12-19 24 [facility] (12 sources) Penicillins Propensity to adverse reactions 04-04-20 23 [facility] (12 sources) Sulfamethoxazole / Trimethoprim Drug Allergy 04-04-20 23 Hives [facility] Medications Current Medications Medication Drug Class(es) Dates Sig (Normalized) Sig (Original) [id number] 200 actuat albuterol 0.09 mg/actuat metered dose inhaler (4 sources) beta2-Adrenergic Agonist Start: 05-11-2024 End: 06-10-2024 take 2 puff(s) by inhalation every six hours for wheezing albuterol HFA (Ventolin HFA) 90 mcg/act inhaler Indications: Bronchitis Inhale 2 puffs every 6 (six) hours if needed for wheezing or shortness of breath 8 g 05/11/2024 Active azithromycin 40 mg/ml oral suspension (2 sources) Macrolide Antimicrobial Start: 08-10-2024 azithromycin (Zithromax) 200 MG/5ML suspension Indications: Acute non-recurrent sinusitis of other sinus Day #1: 12.5ml, Day #2-#5: 6.25ml. 37.5 mL 08/10/2024 Active cephalexin 50 mg/ml oral suspension (1 source) Cephalosporin Antibacterial Start: 09-12-2023 take 500 mg by mouth four times daily Cephalexin Active 500 MG PO Four times daily 400 September 12, 2023 12:00am cetirizine hydrochloride 10 mg oral tablet (15 sources) Histamine-1 Receptor Antagonist Start: 10-16-2019 End: 06-16-2024 take 1 tablet by mouth once daily cetirizine (ZyrTEC) 10 MG tablet Indications: Seasonal allergic rhinitis, unspecified trigger Take 1 tablet (10 mg) by mouth Daily 90 tablet 1 03/18/2024 Active escitalopram 10 mg oral tablet (17 sources) Serotonin Reuptake Inhibitor Start: 10-03-2023 End: 06-16-2024 take 1 tablet by mouth once daily escitalopram (Lexapro) 10 MG tablet Indications: Anxiety Take 1 tablet (10 mg) by mouth Daily 90 tablet 1 03/18/2024 Active fluticasone propionate 0.05 mg/actuat metered dose nasal spray (1 source) Corticosteroid Start: 10-16-2019 take 1 spray(s) nasal route twice daily Fluticasone Propionate (Flonase Allergy Relief) 50 mcg/actuation spray,suspension Active 1 SPRAY INTRANASAL Twice daily 9.9 5 October 16, 2019 12:00am administer into each nostril predniSONE 20 mg oral tablet (2 sources) Start: 05-11-2024 take 2 tablets by mouth once daily predniSONE (Deltasone) 20 MG tablet Indications: Bronchitis Take 2 tabs orally by mouth once daily for 5 days. 10 tablet 05/11/2024 Active spironolactone 50 mg oral tablet (15 sources) Aldosterone Antagonist Start: 02-13-2024 End: 01-24-2025 take 1 tablet by mouth once daily spironolactone (Aldactone) 50 MG tablet Indications: Lower extremity edema Take 1 tablet (50 mg) by mouth Daily 90 tablet 10/26/2024 01/24/2025 Active Completed/Discontinued Medications Medication Drug Class(es) Dates Sig [...] 16, 2019 12:00am September 12, 2023 11:19am DULoxetine 60 mg delayed release oral capsule (1 source) Serotonin and Norepinephrine Reuptake Inhibitor Start: 10-16-2019 End: 09-12-2023 take 60 mg by mouth once daily Duloxetine Discontinued 60 MG PO Daily October 16, 2019 12:00am September 12, 2023 11:20am furosemide 40 mg oral tablet (3 sources) Loop Diuretic End: 02-13-2024 take 1 tablet by mouth in the morning furosemide (Lasix) 40 MG tablet Take 40 mg by mouth in the morning. 02/13/2024 Discontinued (Therapy completed) loratadine 10 mg oral tablet (1 source) Start: 10-16-2019 End: 09-12-2023 take 1 tablet by mouth once daily Loratadine (Claritin) 10 mg Tablet Discontinued 10 MG PO Daily October 16, 2019 12:00am September 12, 2023 11:20am triamcinolone acetonide 0.055 mg/actuat metered dose nasal spray (12 sources) Corticosteroid Start: 03-18-2024 End: 05-11-2024 take 2 spray(s) nasal route once daily triamcinolone (Nasacort) 55 MCG/ACT nasal inhaler Indications: Seasonal allergic rhinitis, unspecified trigger Administer 2 sprays into each nostril Daily 49.5 g 1 03/18/2024 05/11/2024 Discontinued (Therapy completed) End: 03-18-2024 take 2 spray(s) nasal route in the morning triamcinolone (Nasacort) 55 MCG/ACT nasal inhaler Administer 2 sprays into each nostril in the morning. 03/18/2024 Discontinued (Reorder) Problems Active Problems Problem Classification Problem Date Documented Da te Episodic/Chronic Anxiety disorders (20 sources) Mixed anxiety and depressive disorder; Translations: [Other specified anxiety disorders] Onset: 07-11-2023 07-11-2023 Chronic Asthma (1 source) Unspecified asthma, uncomplicated; Translations: [UNSPECIFIED ASTHMA UNCOMPLICATED] Onset: 04-25-2022 Chronic Chronic obstructive pulmonary disease and bronchiectasis (2 sources) Bronchitis; Translations: [Bronchitis, not specified as acute or chronic] 05-11-2024 Episodic Essential hypertension (14 sources) Essential hypertension; Translations: [Essential (primary) hypertension] Onset: 07-11-2023 07-11-2023 Chronic Headache; including migraine (20 sources) Ophthalmic migraine; Translations: [Migraine with aura, not intractable, without status migrainosus] Onset: 07-11-2023 05-08-2023 Chronic Other circulatory disease (1 source) Elevated blood pressure; Translations: [Elevated blood-pressure reading, without diagnosis of hypertension] 05-08-2023 Episodic Other lower respiratory disease (2 sources) Cough; Translations: [Cough, unspecified type] 05-11-2024 Episodic Other nutritional; endocrine; and metabolic disorders (1 source) Obesity, unspecified; Translations: [OBESITY UNSPECIFIED] Onset: 04-25-2022 Chronic Other nutritional; endocrine; and metabolic disorders (1 source) Body mass index (BMI) 50.0-59.9, adult; Translations: [BODY MASS INDEX BMI 50.0-59.9 ADULT] Onset: 04-25-2022 Chronic Other nutritional; endocrine; and metabolic disorders (16 sources) Severe obesity; Translations: [Class 3 severe obesity without serious comorbidity in adult] Onset: 09-19-2023 09-19-2023 Chronic Other nutritional; endocrine; and metabolic disorders (2 sources) Body mass index 40+ - severely obese; Translations: [Body mass index (BMI) 70 or greater, adult] Onset: 06-18-2024 06-18-2024 Chronic Other upper respiratory disease (12 sources) Allergic rhinitis; Translations: [Allergic rhinitis, unspecified] Onset: 07-11-2023 07-11-2023 Chronic Other upper respiratory disease (2 sources) Seasonal allergic rhinitis; Translations: [Other seasonal allergic rhinitis] 03-18-2024 Chronic Other upper respiratory disease (1 source) Nasal congestion; Translations: [Nasal congestion] 05-08-2023 Episodic Other upper respiratory infections (3 sources) Acute sinusitis; Translations: [Other acute sinusitis] Onset: 08-10-2024 08-10-2024 Episodic Residual codes; unclassified (12 sources) Obstructive sleep apnea of adult; Translations: [Obstructive sleep apnea (adult) (pediatric)] Onset: 07-11-2023 07-11-2023 Chronic Residual codes; unclassified (18 sources) Edema of lower extremity; Translations: [Localized edema] Onset: 07-11-2023 07-11-2023 Episodic Substance-related disorders (1 source) Nicotine dependence, cigarettes, uncomplicated; Translations: [NICOTINE DEPEND CIGARETTES UNCOMP] Onset: 04-25-2022 Chronic Unclassified (2 sources) COUGH, UNSPECIFIED; Translations: [COUGH, UNSPECIFIED] Onset: 04-25-2022 Unclassified (3 sources) CONTACT W/AND (SUSP) EXPOS COVID-19; Translations: [CONTACT W/AND (SUSP) EXPOS COVID-19] Onset: 08-18-2021 Viral infection (1 source) COVID-19; Translations: [COVID-19] Onset: 04-25-2022 Past or Other Problems Problem Classification Problem Date Documented Da te Episodic/Chronic Acute and chronic tonsillitis (12 sources) Tonsillitis; Translations: [Acute tonsillitis, unspecified] Onset: 07-11-2023 Resolved: 07-11-2023 07-11-2023 Episodic Disorders of teeth and jaw (12 sources) Infection of tooth; Translations: [Periapical abscess without sinus] Onset: 07-11-2023 Resolved: 07-11-2023 07-11-2023 Episodic Epilepsy; convulsions (12 sources) Seizure; Translations: [Unspecified convulsions] Onset: 07-11-2023 07-11-2023 Episodic Genitourinary symptoms and ill-defined conditions (20 sources) Asymptomatic microscopic hematuria; Translations: [Asymptomatic microscopic hematuria] Onset: 07-11-2023 07-11-2023 Episodic Mycoses (12 sources) Candidiasis of skin; Translations: [Candidiasis of skin and nail] Onset: 07-11-2023 Resolved: 07-11-2023 07-11-2023 Episodic Nausea and vomiting (4 sources) Vomiting, unspecified; Translations: [Nausea] Onset: 12-29-2021 Episodic Other nutritional; endocrine; and metabolic disorders (4 sources) Obesity caused by energy imbalance; Translations: [Morbid (severe) obesity due to excess calories] Onset: 06-18-2024 Resolved: 07-02-2024 06-18-2024 Chronic Other screening for suspected conditions (not mental disorders or infectious disease) (16 sources) Encounter for screening for malignant neoplasm of cervix; Translations: [Other specified abnormal findings of blood chemistry] Onset: 10-11-2021 Episodic Otitis media and related conditions (12 sources) Acute serous otitis media of bilateral ears; Translations: [Acute serous otitis media, bilateral] Onset: 07-11-2023 Resolved: 07-11-2023 07-11-2023 Episodic Residual codes; unclassified (4 sources) Localized edema; Translations: [LOCALIZED EDEMA] Onset: 05-17-2021 Episodic Residual codes; unclassified (16 sources) Tobacco user; Translations: [Tobacco use] Onset: 07-11-2023 07-11-2023 Episodic Skin and subcutaneous tissue infections (14 sources) Abscess; Translations: [Cutaneous abscess, unspecified] Onset: 09-12-2023 Resolved: 03-18-2024 09-12-2023 Episodic Unclassified (1 source) COUGH, UNSPECIFIED; Translations: [COUGH, UNSPECIFIED] Onset: 04-22-2022 Unclassified (1 source) CONTACT W/AND (SUSP) EXPOS COVID-19; Translations: [CONTACT W/AND (SUSP) EXPOS COVID-19] Onset: 08-15-2021 Results Test Name Value Interpretation Reference Range Facility Laboratory - Microbiology an d Antimicrobial susceptibilityon 05-11-2024 SARS-CoV-2 (COVID-19) RNA ANDRES+probe Ql (Unsp spec) Negative Negative [facility] No Panel Informationon 05-11 Interpretation and review of laboratory results Normal [facility] INFLUENZA A Negative Negative [facility] INFLUENZA B Negative Negative [facility] Interpretation and review of laboratory results Normal [facility] XR CHEST 2 VIEWSon 4 XR CHEST 2 VIEWS TITLE OF EXAM: XR CH EST 2 VIEWS REASON FOR EXAM: Dry cough for three days TECHNIQUE: 2 radiographs of the chest. COMPARISON: None FINDINGS: Normal lung expansion. Mild diffuse linear opacity. No consolidation. No significant effusion or pneumothorax. The cardiomediastinal silhouette is normal. No acute osseous or upper abdominal abnormality. IMPRESSION: 1. No pneumonic consolidation. 2. Mild diffuse linear opacities, favored to reflect chronic small airways disease, though a component of infectious or inflammatory bronchitis/bronchioliti s is possible. A component of mild interstitial pulmonary edema is also a consideration. DICTATED ON: 05/11/2024 2:57 PM This report has been electronically signed and approved by the interpreting radiologist. Normal Not Available XR Chest 2 Viewson TITLE OF EXAM: XR CH EST 2 VIEWS REASON FOR EXAM: Dry cough for three days TECHNIQUE: 2 radiographs of the chest. COMPARISON: None FINDINGS: Normal lung expansion. Mild diffuse linear opacity. No consolidation. No significant effusion or pneumothorax. The cardiomediastinal silhouette is normal. No acute osseous or upper abdominal abnormality. IMPRESSION: 1. No pneumonic consolidation. 2. Mild diffuse linear opacities, favored to reflect chronic small airways disease, though a component of infectious or inflammatory bronchitis/bronchioliti s is possible. A component of mild interstitial pulmonary edema is also a consideration. DICTATED ON: 05/11/2024 2:57 PM This report has been electronically signed and approved by the interpreting radiologist. Scott Huggins MD - 05/11/2024 TITLE OF EXAM: XR CHEST 2 VIEWS REASON FOR EXAM: Dry cough for three days TECHNIQUE: 2 radiographs of the chest. COMPARISON: None FINDINGS: Normal lung expansion. Mild diffuse linear opacity. No consolidation. No significant effusion or pneumothorax. The cardiomediastinal silhouette is normal. No acute osseous or upper abdominal abnormality. IMPRESSION: 1. No pneumonic consolidation. 2. Mild diffuse linear opacities, favored to reflect chronic small airways disease, though a component of infectious or inflammatory bronchitis/bronchioliti s is possible. A component of mild interstitial pulmonary edema is also a consideration. DICTATED ON: 05/11/2024 2:57 PM This report has been electronically signed and approved by the interpreting radiologist. [facility] Radiology Study observation (narrative) [facility] XR Chest 2 ViewsOrdered By: Scott Rainey on 05-11-2024 [facility] [employer] Work Phone: ALL BASIC METABOLIC PANELon 03-05-2024 Anion gap [Moles/Vol] 9.9 mmol/L [facility] Calcium [Mass/Vol] 8.9 mg/dL 8.5 - 10. 1 mg/dL [facility] Chloride [Moles/Vol] 101 mmol/L 98 - 10 7 mmol/L [facility] CO2 [Moles/Vol] 29.7 mmol/L 21.0 - 32.0 mmol/L [facility] Creatinine [Mass/Vol] 0.76 mg/dL 0.55 - 1.02 mg/dL [facility] GFR/1.73 sq M.predicted CKD-EPI (S/P/Bld) [Vol rate/Area] >60 >=60 mL/min/1.73m 2 [facility] Glucose [Mass/Vol] 106 mg/dL 74 - 106 mg/dL [facility] Potassium [Moles/Vol] 4.6 mmol/L 3.5 - 5.1 mmol/L [facility] Sodium [Moles/Vol] 136 mmol/L 136 - 145 mmol/L [facility] TB EGFR-NON AF [place]I [place]ABIAN >60 >=60 mL/min/1.73m 2 [facility] Urea nitrogen [Mass/Vol] 8.0 mg/dL 7.0 - 18.0 mg/dL [facility] Urea nitrogen/Creatinine [Mass ratio] 10.5 mg/mg [facility] Covid-19 PCR (CVDTB)on 03-28 SARS-CoV-2 (COVID-19) RNA ANDRES+probe Ql (Unsp spec) Detected Critically abnormal NOT DETECTED [facility] Comment on above: Result Comment: This test is not yet approved or cleared by the [place] FDA. When there are no FDA-approved or cleared tests available, and other criteria are met, FDA can make tests available under an emergency access mechanism called an Emergency Use Authorization (EUA). The EUA for this test is supported by the [place] of Health and Human Service's declaration that [...] used). Performed By: #### C VDTBH #### [facility] [address] [place] [address] Dr. Ronnie Wolf INFLUENZA A AND B AGon 04-22 [facility] SEE BELOW Normal [facility] Comment on above: Result Comment: Nega tive for Flu A protein angiten. Infection due to Flu A cannot be ruled out. Flu A angiten in the sample may be below the detection limit of the test. Performed By: #### I NFLUAB #### [facility] [address] [place] [address] Dr. [facility] [facility] Normal [facility] Comment on above: Result Comment: Nega tive for Flu B protein antigen. Infection due to Flu B cannot be ruled out. Flu B antigen in the sample may be below the detection limit of the test. Performed By: #### I NFLUAB #### [facility] [address] [place] [address] Dr. Ronnie Wolf INFLUENZA A AG Negative Normal NEGATIVE SEE COMMENT [facility] Comment on above: Performed By: #### I NFLUAB #### [facility] [address] [place] [address] Dr. Ronnie Wolf INFLUENZA B AG Negative Normal NEGATIVE SEE COMMENT [facility] Comment on above: Performed By: #### I NFLUAB #### [facility] [address] [place] [address] Dr. Ronnie Wolf INTERNAL CONTROLS Within Normal Limits Normal Wi thin Normal Limits [facility] Comment on above: Performed By: #### I NFLUAB #### [facility] [address] [place] [address] Dr. Ronnie Wolf PAP ACOG PANEL 2: 21 to 31on 10-17-2021 . . Normal [facility] Comment on above: Result Comment: Perf ormed at: BA Performed By: #### [id number] #### [facility] [address] [place] [address] Dr. Ronnie Wolf Age Gdln ACOG Testing [facility] Comment on above: Performed By: #### [id number] #### [facility] [address] [place] [address] Dr. Ronnie Wolf DIAGNOSIS: Comment Normal [facility] Comment on above: Result Comment: NEGA TIVE FOR INTRAEPITHELIAL LESION OR MALIGNANCY. Performed at: BA Performed By: #### [id number] #### [facility] [address] [place] [address] Dr. Ronnie Wolf Methodology: Comment [facility] Comment on above: Result Comment: This liquid based ThinPrep(R) pap test was screened with the use of an image guided system. Performed at: WB Performed By: #### [id number] #### [facility] [address] [place] [address] Dr. Ronnie Wolf Note: Comment Normal [facility] Comment on above: Result Comment: The Pap smear is a screening test designed to aid in the detection of premalignant and malignant conditions of the uterine cervix. It is not a diagnostic procedure and should not be used as the sole means of detecting cervical cancer. Both false-positive and false-negative reports do occur. . Performed at: WB Performed By: #### [id number] #### [facility] [address] [place] [address] Dr. Ronnie Wolf Performed by: Comment Normal [facility] Comment on above: Result Comment: Ning Mcconnell Shelving Supervisor (ASCP) Performed at: BA Performed By: #### [id number] #### [facility] [address] [place] [address] Dr. Ronnie Wolf Reflex Criteria: Comment Normal [facility] Comment on above: Result Comment: The HPV DNA reflex criteria were not met with this specimen result therefore, no HPV testing was performed. . Performed at: BA Performed By: #### [id number] #### [facility] [address] [place] [address] Dr. Ronnie Wolf Specimen adequacy: Comment Normal [facility] Comment on above: Result Comment: Sati sfactory for evaluation. Endocervical and/or squamous metaplastic cells (endocervical component) are present. Performed at: BA Performed By: #### [id number] #### [facility] [address] [place] [address] Dr. Ronnie Wolf Covid-19 PCR (CVDTB)on 07-26 SARS-CoV-2 (COVID-19) RNA ANDRES+probe Ql (Unsp spec) Not detected Normal NOT DETECTED [facility] Comment on above: Result Comment: When [...] for this test is supported by the [place] of Health and Human Service's declaration that [...] longer be used). Performed By: #### C VDTB #### [facility] [address] [address] [address] Ronnie Wolf Covid-19 PCR (CVDTB)on 04-27 SARS-CoV-2 (COVID-19) RNA ANDRES+probe Ql (Unsp spec) Detected Critically abnormal NOT DETECTED [facility] Comment on above: Result Comment: This test is not yet approved or cleared by the [place] FDA. When there are no FDA-approved or cleared tests available, and other criteria are met, FDA can make tests available under an emergency access mechanism called an Emergency Use Authorization (EUA). The EUA for this test is supported by the [place] of Health and Human Service's (HHS's) declaration [...] used). Performed By: #### C VDTBH #### [facility] [address] [address] [address] Ronnie Wolf CBC AUTO DIFFon 05-17-2021 BASO # 0.1 103/ul Normal 0.0-0.1 [facility] Comment on above: Performed By: #### C BC #### [facility] [address] [address] [address] Ronnie Wolf Basophils/100 WBC (Bld) 0.7 % Normal 0.2-2.0 [facility] Comment on above: Performed By: #### C BC #### [facility] [address] [place] [address] Dr. Ronnie Wolf EO # 0.5 103/ul Normal 0.0-0.7 [facility] Comment on above: Performed By: #### C BC #### [facility] [address] [place] [address] Dr. Ronnie Wolf Eosinophils/100 WBC (Bld) 3.8 % Normal 0.9-7.0 [facility] Comment on above: Performed By: #### C BC #### [facility] [address] [place] [address] Dr. Ronnie Wolf Erythrocyte distribution width (RBC) [Ratio] 13.9 % Normal 11.0-15.0 [facility] Comment on above: Performed By: #### C BC #### [facility] [address] [place] [address] Dr. Ronnie Wolf Hematocrit (Bld) [Volume fraction] 43.1 % Normal 36.0-48.0 [facility] Comment on above: Performed By: #### C BC #### [facility] [address] [place] [address] Dr. Ronnie Wolf Hemoglobin (Bld) [Mass/Vol] 13.4 g/dL Normal 12.0-16.0 [facility] Comment on above: Performed By: #### C BC #### [facility] [address] [place] [address] Dr. Ronnie Wolf IG # 0.04 10e3/ul Critically high 0.00-0.03 [facility] Comment on above: Performed By: #### C BC #### [facility] [address] [place] [address] Dr. Ronnie Wolf IG % 0.3 % Normal 0.0-0.5 [facility] Comment on above: Performed By: #### C BC #### [facility] [address] [place] [address] Dr. Ronnie Wolf LYMPH # 4.5 103/ul Critically high 1.2-3.8 [facility] Comment on above: Performed By: #### C BC #### [facility] [address] [place] [address] Dr. Ronnie Wolf Lymphocytes/100 WBC (Bld) 37.6 % Normal 20.5-60.0 [facility] Comment on above: Performed By: #### C BC #### [facility] [address] [place] [address] Dr. Ronnie Wolf MANUAL DIFF REQ NO Normal [facility] Comment on above: Performed By: #### C BC #### [facility] [address] [place] [address] Dr. Ronnie Wolf MCH (RBC) [Entitic mass] 27.1 pg Normal 26.7-34.0 [facility] Comment on above: Performed By: #### C BC #### [facility] [address] [place] [address] Dr. Ronnie Wolf MCHC (RBC) [Mass/Vol] 31.1 g/dL Normal 29.9-35.2 [facility] Comment on above: Performed By: #### C BC #### [facility] [address] [place] [address] Dr. Ronnie Wolf MCV (RBC) [Entitic vol] 87.1 fL Normal 81.0-99.0 [facility] Comment on above: Performed By: #### C BC #### [facility] [address] [place] [address] Dr. Ronnie Wlof MONO # 0.7 103/ul Normal 0.3-0.8 [facility] Comment on above: Performed By: #### C BC #### [facility] [address] [place] [address] Dr. Ronnie Wolf Monocytes/100 WBC (Bld) 5.5 % Normal 1.7-12.0 [facility] Comment on above: Performed By: #### C BC #### [facility] [address] [place] [address] Dr. Ronnie Wolf NEUT # 6.3 103/ul Normal 1.4-6.5 [facility] Comment on above: Performed By: #### C BC #### [facility] [address] [place] [address] Dr. Ronnie Wolf Neutrophils/100 WBC (Bld) 52.1 % Normal 43.0-75.0 [facility] Comment on above: Performed By: #### C BC #### [facility] [address] [place] [address] Dr. Ronnie Wolf Platelet mean volume (Bld) [Entitic vol] 10.2 fL Normal 9.5-13.5 [facility] Comment on above: Performed By: #### C BC #### [facility] [address] [place] [address] Dr. Ronnie Wolf PLT 313 103/ul Normal 150-450 [facility] Comment on above: Performed By: #### C BC #### [facility] [address] [place] [address] Dr. Ronnie Wolf RBC 4.95 106/ul Normal 4.20-5.[address] [facility] Comment on above: Performed By: #### C BC #### [facility] [address] [place] [address] Dr. Ronnie Wolf WBC 12.0 103/ul Critically high 4.0-11.0 [facility] Comment on above: Performed By: #### C BC #### [facility] [address] [place] [address] Dr. Ronnie Wolf FREE T4on 05-17-2021 Free T4 [Mass/Vol] 0.92 ng/dL Normal 0.78-2.19 [facility] Comment on above: Performed By: #### F T4 #### [facility] [address] [address] [address] Ronnie Wolf PROF 14(COMP METB)on 021 Albumin [Mass/Vol] 3.2 g/dL Critically low 3.5-5.[address] [facility] Comment on above: Performed By: #### C MP, TSH #### [facility] [address] [address] [address] Ronnie Wolf Albumin/Globulin [Mass ratio] 0.7 {ratio} Normal [facility] Comment on above: Performed By: #### C MP, TSH #### [facility] [address] [place] [address] Dr. Ronnie Wolf ALP [Catalytic activity/Vol] 66 U/L Normal 38-126 [facility] Comment on above: Performed By: #### C MP, TSH #### [facility] [address] [place] [address] Dr. Ronnie Wolf ALT [Catalytic activity/Vol] 32 U/L Normal 9-52 [facility] Comment on above: Performed By: #### C MP, TSH #### [facility] [address] [place] [address] Dr. Ronnie Wolf Anion gap [Moles/Vol] 11.8 mmol/L Normal [facility] Comment on above: Performed By: #### C MP, TSH #### [facility] [address] [address] [address] Ronnie Wolf AST [Catalytic activity/Vol] 17 U/L Normal 14-36 [facility] Comment on above: Performed By: #### C MP, TSH #### [facility] [address] [place] [address] Dr. Ronnie Wolf Bilirubin [Mass/Vol] 0.2 mg/dL Normal 0.2-1.3 [facility] Comment on above: Performed By: #### C MP, TSH #### [facility] [address] [place] [address] Dr. Ronnie Wolf Calcium [Mass/Vol] 8.7 mg/dL Normal 8.4-10.2 [facility] Comment on above: Performed By: #### C MP, TSH #### [facility] [address] [address] [address] Ronnie Wolf Chloride [Moles/Vol] 103 mmol/L Normal 98-107 [facility] Comment on above: Performed By: #### C MP, TSH #### [facility] [address] [address] [address] Ronnie Wolf CO2 [Moles/Vol] 28.9 mmol/L Normal 22.0-30.0 [facility] Comment on above: Performed By: #### C MP, TSH #### [facility] [address] [address] [address] Ronnie Wolf Creatinine [Mass/Vol] 0.61 mg/dL Normal 0.52-1.04 [facility] Comment on above: Performed By: #### C MP, TSH #### [facility] [address] [address] [address] Ronnie Wolf EGFR-AF SAUDI ARABIAN >60 Normal >=60 [facility] Comment on above: Performed By: #### C MP, TSH #### [facility] [address] [address] [address] Ronnie Wolf EGFR-NON AF SAUDI ARABIAN >60 Normal >=60 [facility] Comment on above: Performed By: #### C MP, TSH #### [facility] [address] [address] [address] Ronnie Wolf Globulin (S) [Mass/Vol] 4.3 g/dL Normal [facility] Comment on above: Performed By: #### C MP, TSH #### [facility] [address] [address] [address] Ronnie Wolf Glucose [Mass/Vol] 112 mg/dL Critically high 74-106 [facility] Comment on above: Performed By: #### C MP, TSH #### [facility] [address] [address] [address] Ronnie Wolf Potassium [Moles/Vol] 4.7 mmol/L Normal 3.4-5.0 [facility] Comment on above: Performed By: #### C MP, TSH #### [facility] [address] [place] [address] Dr. Ronnie Wolf Protein [Mass/Vol] 7.5 g/dL Normal 6.1-8.2 [facility] Comment on above: Performed By: #### C MP, TSH #### [facility] [address] [place] [address] Dr. Ronnie Wolf Sodium [Moles/Vol] 139 mmol/L Normal 137-145 [facility] Comment on above: Performed By: #### C MP, TSH #### [facility] [address] [place] [address] Dr. Ronnie Wolf Urea nitrogen [Mass/Vol] 10.0 mg/dL Normal 7.0-17.0 [facility] Comment on above: Performed By: #### C MP, TSH #### [facility] [address] [place] [address] Dr. Ronnie Wolf Urea nitrogen/Creatinine [Mass ratio] 16.4 mg/mg Normal [facility] Comment on above: Performed By: #### C MP, TSH #### [facility] [address] [place] [address] Dr. Ronnie Wolf TSHon 05-17-2021 TSH 1.995 uIU/mL Normal 0.470-4.680 [facility] Comment on above: Performed By: #### C MP, TSH #### [facility] [address] [place] [address] Dr. Ronnie Wolf TSH RANGE SEE BELOW Normal [facility] Comment on above: Result Comment: <0.3 4 UIU/ml HYPERTHYROID 0.34-5.60 UIU/ml EUTHYROID >5.60 UIU/ml HYPOTHYROID Performed By: #### C MP, TSH #### [facility] [address] [place] [address] Dr. Ronnie Wolf Operative Reporton Operative Report MR#: [id number] [facility] Pt. Name: Faby Mcconnell Room #: 0C Discharge 09/23/2020 Date: Birthdate: 1990 OPERATIVE REPORT DATE OF SURGERY: 09/23/2020 SURGEON: Lalita Jerome M.D. COMPENSATION VICE PRESIDENT: Jose Carlos Meraz M.D. PREOPERATIVE DIAGNOSIS: Biliary [...] Meraz MD Date Trans: 09/23/2020 08:38 P/mmo [id number] Normal [facility] POC GLUCOSE LABon 09-23-2020 Glucose [Mass/Vol] 78 mg/dL Normal 70-100 [facility] Comment on above: Performed By: #### 8 [id number] #### [facility] [address] [place] [address], [facility] URINE PREGNANCYon 2020 Beta HCG ( test) Ql (U) Negative Normal NEGATIVE [facility] Comment on above: Result Comment: Perf ormed in PACU Performed By: #### 8 [id number] #### [facility] [address] [place] [address], [place] BASIC METABOLIC PANELon 08-25 Calcium [Mass/Vol] 9.2 mg/dL Normal 8.6-10.3 [facility] Comment on above: Performed By: #### 0 0071 #### [facility] [address] [place] [address], [place] Chloride [Moles/Vol] 102 mmol/L Normal 98-107 [facility] Comment on above: Performed By: #### 0 0071 #### [facility] [address] [place] [address], [place] CO2 [Moles/Vol] 32 mmol/L High 21-31 [facility] Comment on above: Performed By: #### 0 0071 #### [facility] [address] [place] [address], [place] Creatinine [Mass/Vol] 0.73 mg/dL Normal 0.60-1.20 [facility] Comment on above: Performed By: #### 0 0071 #### [facility] [address] [place] [address], [place] GFR/1.73 sq M.predicted among blacks MDRD (S/P/Bld) [Vol rate/Area] mL/min/{1.73_m2} Normal >60 [facility] Comment on above: Performed By: #### 0 0071 #### [facility] [address] [place] [address], [place] GFR/1.73 sq M.predicted among non-blacks MDRD (S/P/Bld) [Vol rate/Area] mL/min/{1.73_m2} Normal >60 [facility] Comment on above: Performed By: #### 0 0071 #### [facility] [address] [place] [address], [place] Glucose [Mass/Vol] 96 mg/dL Normal 70-100 [facility] Comment on above: Performed By: #### 0 0071 #### [facility] [address] [place] [address], [place] Potassium [Moles/Vol] 4.3 mmol/L Normal 3.5-5.1 [facility] Comment on above: Performed By: #### 0 0071 #### [facility] [address] [place] [address], [place] Sodium [Moles/Vol] 139 mmol/L Normal 136-145 [facility] Comment on above: Performed By: #### 0 0071 #### [facility] [address] [place] [address], [place] Urea nitrogen [Mass/Vol] 11 mg/dL Normal 7-25 [facility] Comment on above: Performed By: #### 0 0071 #### [facility] [address] [place] [address], [place] CBC COMPLETE BLOOD COUNTon 0 09-07-2020 Erythrocyte distribution width (RBC) [Ratio] 13.4 % Normal 11.5-15.0 [facility] Comment on above: Performed By: #### 5 0608 #### [facility] [address] [facility] [address] Hematocrit (Bld) [Volume fraction] 39.6 % Normal 36.0-45.0 [facility] Comment on above: Performed By: #### 5 0608 #### [facility] [address] [facility] [place] [address] Hemoglobin (Bld) [Mass/Vol] 13.0 g/dL Normal 12.0-15.0 [facility] Comment on above: Performed By: #### 5 0608 #### [facility] [address] [facility] [address] MCH (RBC) [Entitic mass] 27.8 pg Normal 27.0-33.0 [facility] Comment on above: Performed By: #### 5 0608 #### [facility] [address] [facility] [place] [address] MCHC (RBC) [Mass/Vol] 32.8 g/dL Normal 32.0-35.0 [facility] Comment on above: Performed By: #### 5 0608 #### [facility] [address] [facility] [place] [address] MCV (RBC) [Entitic vol] 84.8 fL Normal 82.0-98.0 [facility] Comment on above: Performed By: #### 5 0608 #### [facility] [address] [facility] Nucleated RBC/100 WBC (Bld) [Ratio] 0 % Normal 0-0 [facility] Comment on above: Performed By: #### 5 0608 #### [facility] [address] [place] [address], [facility] PLAT CNT 324 10*3/uL Normal 150-400 [facility] Comment on above: Performed By: #### 5 0608 #### [facility] [address] [facility] [place] [address], [facility] RBC (Bld) [#/Vol] 4.67 10*6/uL Normal 3.80-5.00 [facility] Comment on above: Performed By: #### 5 0608 #### [facility] [address] [facility] [place] [address], [facility] WBC (Bld) [#/Vol] 11.86 10*3/uL High 4.00-10.60 [facility] Comment on above: Performed By: #### 5 0608 #### [facility] [address] [facility]. [address] PROTHROMBIN TIMEon 1 INR Coag (PPP) [Relative time] 0.97 {INR} Normal 0.91-1.16 [facility] Comment on above: Result Comment: ACCC P RECOMMENDED INR FOR WARFARIN THERAPY ------- ------- CONDITION INR PROPHYLAXIS OF VENOUS THROMBOSIS 2-3 (HIGH-RISK SURGERY) TREATMENT OF VENOUS THROMBOSIS 2-3 TREATMENT OF PULMONARY EMBOLISM 2-3 PREVENTION OF SYSTEMIC EMBOLISM: 2-3 ACUTE MYOCARDIAL INFARCTION TISSUE HEART VALVES VALVULAR HEART DISEASE ATRIAL FIBRILLATION RECURRENT SYSTEMIC EMBOLISM MECHANICAL HEART VALVE 2.5-3.5 FROM: ORAL ANTICOAGULANTS. MECHANISM OF ACTION, CLINICAL EFFECTIVENESS, AND OPTIMAL THERAPEUTIC RANGE. CHEST 1995;108:231S-246S. Performed By: #### 5 6101 #### [facility] [address] [place] [address], [place] PT Coag (PPP) [Time] 12.9 s Normal 12.3-14.8 [facility] Comment on above: Result Comment: ALL RESULTS MUST BE INTERPRETED WITH RESPECT TO BLOOD DRAWING ARTIFACT OR DILUTION ERROR OF ANTICOAGULANT AT THE TIME OF SAMPLING. Performed By: #### 5 [id number] #### [facility] [address] Lab Reportson 09-05-2020 Lab Reports [id number]#[id number] :127 Normal [facility] Ambulatory Clinical Summaryo n 09-02-2020 Ambulatory Clinical Summary {[id number] Normal [facility] General Surgery Office/Clini c Noteon 09-02-2020 General [...] abnormal; will refer to Dr Jerome at [facility] in [place] due to patient being high risk for surgical intervention due to BMI over 60 and tobacco use. patient to maintain low fat diet; return to ED if worsening pain or persistent nausea/vomiting; off work until further workup or surgery. Ordered: ondansetron, 4 mg = 1 tab(s), Oral, q6hr, PRN Nausea, # 15 tab(s), Refills(s) 0, Pharmacy: [facility], 160, cm, 09/02/20 10:50:00 EDT, Height/Length Dosing, 156, kg, 09/02/20 10:50:00 EDT, Weight Dosing Amylase Level [facility] External Ambulatory Referral Hepatic Function Panel Lipase [...] Nausea, # 15 tab(s), Refills(s) 0, Pharmacy: [facility], 160, cm, 09/02/20 10:50:00 EDT, Height/Length Dosing, 156, kg, 09/02/20 10:50:00 EDT, Weight Dosing Amylase Level [facility] External Ambulatory Referral Hepatic Function Panel Lipase Level 4. Nausea (R11.0: Nausea) see # 1 5. BMI 60.0-69.9, adult (Z68.44: Body mass index [BMI] 60.0-69.9, adult) see # 1; recommend diet and exercise. Ordered: ondansetron, 4 mg = 1 tab(s), Oral, q6hr, PRN Nausea, # 15 tab(s), Refills(s) 0, Pharmacy: [facility], 160, cm, 09/02/20 10:50:00 EDT, Height/Length Dosing, 156, kg, 09/02/20 10:50:00 EDT, Weight Dosing Amylase Level Current tobacco smoker 1034F [facility] External Ambulatory Referral Hepatic Function Panel Lipase [...] Nausea, # 15 tab(s), Refills(s) 0, Pharmacy: [facility], 160, cm, 09/02/20 10:50:00 EDT, Height/Length Dosing, 156, kg, 09/02/20 10:50:00 EDT, Weight Dosing Amylase Level Current tobacco smoker 1034F [facility] External Ambulatory Referral Hepatic Function Panel Lipase [...] No., 09/02/2020 Family History Cervical cancer: Mother. [facility] Comment on above: Result Comment: Elec tronically Signed By: IRINA BOSCH, Ferny Walls\.lucia\Date and Time Signed: 09/02/20 12:20 EDT Provider Letteron 09-02-2020 Provider Letter (Inserted Image. Yasmin ble to display) September 02, 2020 FABY MCCONNELL [address] [place] [address] FABY MCCONNELL 1990 To Whom It May Concern, Please excuse above patient from work. Date of Illness: From: 09/02/2020 To: until seen by specialist Dr Jerome May Return to Work On: after evaluated by Dr Jerome will be up to him Comments: referral has been made to Dr Jerome waiting on appointment to be scheduled. Sincerely, Dr Ferny Arambula [facility] Consultation Noteon 09-02-19 Consultation Note [id number] D:127 [facility] ED Note-Physicianon 09-02-19 ED Note-Physician [id number] :127 [facility] ED Note-Physician [id number] :127 [facility] Comment on above: Other Comment: DORINA SANFORD CRR Vital Signs Date Time Vital Sign Value Performing Clinician Facility 05-11-2024 14:33-0500 Body mass index (BMI) [Ratio] 72.76 kg/m2 Ayi Laileman PA Work Phone: [facility] 05-11-2024 14:33-0500 Body temperature 98.1 [degF] [employer] Workman PA Work Phone: [facility] 05-11-2024 14:33-0500 Body weight 186.3 kg [employer] Work Phone: [facility] 05-11-2024 14:33-0500 Diastolic blood pressure 88 mm[Hg] Summer Workman PA Work Phone: [facility] 05-11-2024 14:33-0500 Heart rate 108 /min Summer Workman PA Work Phone: [facility] 05-11-2024 14:33-0500 SaO2% (BldA) [Mass fraction] 99 % Summer Workman PA Work Phone: [facility] 05-11-2024 14:33-0500 Systolic blood pressure 140 mm[Hg] Summer Workman PA Work Phone: [facility] 03-18-2024 15:26-0400 Body height 160 cm Niecy Olvinholz END WORKER Work Phone: [facility] 03-18-2024 15:26-0400 Body mass index (BMI) [Ratio] 71.92 kg/m2 Niecy Aichholz END WORKER Work Phone: [facility] 03-18-2024 15:26-0400 Body temperature 98.71 [degF] Niecy Aichholz END WORKER Work Phone: [facility] 03-18-2024 15:26-0400 Body weight 184.16 kg Niecy Aichholz END WORKER Work Phone: [facility] 03-18-2024 15:26-0400 Diastolic blood pressure 86 mm[Hg] Niecy Aichholz END WORKER Work Phone: [facility] 03-18-2024 15:26-0400 Heart rate 94 /min Niecy Aichholz END WORKER Work Phone: [facility] 03-18-2024 15:26-0400 Respiratory rate 18 /min Niecy Aichholz END WORKER Work Phone: [facility] 03-18-2024 15:26-0400 SaO2% (BldA) [Mass fraction] 97 % Niecy Aichholz END WORKER Work Phone: [facility] 03-18-2024 15:26-0400 Systolic blood pressure 124 mm[Hg] Niecy Aichholz END WORKER Work Phone: [facility] 02-13-2024 15:02-0400 Body height 160 cm Niecy Aichholz END WORKER Work Phone: [facility] 02-13-2024 15:02-0400 Body mass index (BMI) [Ratio] 72.24 kg/m2 Niecy Aichholz END WORKER Work Phone: [facility] 02-13-2024 15:02-0400 Body temperature 98.71 [degF] Niecy Aichholz END WORKER Work Phone: [facility] 02-13-2024 15:02-0400 Body weight 184.98 kg Niecy Aichholz END WORKER Work Phone: [facility] 02-13-2024 15:02-0400 Diastolic blood pressure 80 mm[Hg] Niecy Aichholz END WORKER Work Phone: [facility] 02-13-2024 15:02-0400 Heart rate 94 /min Niecy Leticiahholz END WORKER Work Phone: [facility] 02-13-2024 15:02-0400 Respiratory rate 19 /min Niecy Aichholz END WORKER Work Phone: [facility] 02-13-2024 15:02-0400 SaO2% (BldA) [Mass fraction] 99 % Niecy Leticiahholz END WORKER Work Phone: [facility] 02-13-2024 15:02-0400 Systolic blood pressure 122 mm[Hg] Niecy Leticiahholz END WORKER Work Phone: [facility] 09-12-2023 11:01-0400 Body height 160.02 cm Niecy Aichholz Work Phone: [facility] 09-12-2023 11:01-0400 Body temperature 98.4 [degF] Niecy Aichholz Work Phone: [facility] 09-12-2023 11:01-0400 Body weight 176 kg Niecy Aichholz Work Phone: [facility] 09-12-2023 11:01-0400 Diastolic blood pressure 97 mm[Hg] Niecy Aichholz Work Phone: [facility] 09-12-2023 11:01-0400 Heart rate 87 /min Niecy Aichholz Work Phone: [facility] 09-12-2023 11:01-0400 Respiratory rate 18 /min Niecy Aichholz Work Phone: [facility] 09-12-2023 11:01-0400 SaO2% (BldA) [Mass fraction] 99 % Niecy Aichholz Work Phone: [facility] 09-12-2023 11:01-0400 Systolic blood pressure 166 mm[Hg] Niecy Aichholz Work Phone: [facility] Encounters Encounter Date Encounter Type Care Provider Facility Start: 10-26-2024 End: 10-26-2024 Refill Niecy Aichholz END WORKER Work Phone: [facility] Comment on above: Lower extremity daksha a Start: 08-14-2024 End: 08-14-2024 ambulatory ISABELLA SZYMANSKI Not Available Start: 08-10-2024 End: 08-10-2024 Refill Niecy Aichholz END WORKER Work Phone: [facility] Comment on above: Acute non-recurrent sinusitis of other sinus (Primary Dx) Start: 05-11-2024 End: 05-11-2024 Office outpatient new 45 minutes Summer M Workman PA Work Phone: [facility] Comment on above: Bronchitis (Primary Dx); Cough, unspecified type Start: 05-11-2024 End: 05-11-2024 ambulatory SUMMER M WORKMAN Not Available Start: 03-18-2024 End: 03-18-2024 Office outpatient visit 15 minutes Niecy Aichholz END WORKER Work Phone: [facility] Comment on above: Lower extremity daksha a (Primary Dx); Tobacco user; Anxiety; Seasonal allergic rhinitis, unspecified trigger; Primary hypertension (CMS/HCC); Class 3 severe obesity without serious comorbidity in adult, unspecified BMI, unspecified obesity type (CMS/HCC) Start: 03-18-2024 End: 03-18-2024 ambulatory NIECY AICHHOLZ Not Available Start: 03-18-2024 End: 03-18-2024 Bamboo flowsheet Niecy Aichholz END WORKER Work Phone: [facility] Start: 03-18-2024 End: 03-18-2024 Bamboo flowsheet Niecy Aichholz END WORKER Work Phone: [facility] Start: 03-09-2024 End: 03-09-2024 Refill Niecy Aichholz END WORKER Work Phone: [facility] Comment on above: Anxiety; Lower extremity edema Start: 03-05-2024 End: 03-05-2024 Clinisync Result Encounter Niecy Aichholz END WORKER Work Phone: [facility] Unsolicited Start: 03-05-2024 End: 03-05-2024 Clinisync Result Encounter Niecy Aichholz END WORKER Work Phone: [facility] Unsolicited Start: 02-13-2024 End: 02-13-2024 Office outpatient visit 15 minutes Niecy Evangelistz END WORKER Work Phone: [facility] Comment on above: Lower extremity daksha a (Primary Dx); Tobacco user; Depression with anxiety; Anxiety; Class 3 severe obesity without serious comorbidity in adult, unspecified BMI, unspecified obesity type (CMS/HCC) Start: 02-13-2024 End: 02-13-2024 ambulatory NIECY AICHHOLZ Not Available Start: 02-13-2024 End: 02-13-2024 Bamboo flowsheet Niecy Aichholz END WORKER Work Phone: [facility] Start: 02-13-2024 End: 02-13-2024 Bamboo flowsheet Niecy Aichcarmenkolton END WORKER Work Phone: [facility] Start: 10-03-2023 End: 10-03-2023 ambulatory NIECY BAHHOLZ Not Available Start: 09-19-2023 End: 09-19-2023 ambulatory NIECY OLVINHOLZ Not Available Start: 09-12-2023 End: 09-12-2023 Emergency department patient visit Dung Cespedes Facility:[facility] Start: 09-12-2023 End: 09-12-2023 Emergency department patient visit Niecy Bahcarmenkolton Work Phone: [facility] Work Phone: Start: 04-22-2022 End: 04-22-2022 ambulatory CECILIO ALMARAZ Facility:[facility] Start: 12-29-2021 End: 12-29-[address] TAD STAFFORD Facility:[facility] Start: 10-11-2021 End: 10-11-2021 ambulatory FRONT OFFICE DEVELOPER NIECY VAL Facility:[facility] Start: 08-15-2021 End: 08-15-2021 ambulatory FRONT OFFICE DEVELOPER NIECY AICHCARMENZ Facility:[facility] Start: 05-21-2021 End: 05-21-[address] SEE [place] Facility:[facility] Start: 05-17-2021 End: 05-18-2021 ambulatory FRONT OFFICE DEVELOPER NIECY AICHCARMENZ Facility:[facility] Start: 09-23-2020 End: 09-24-2020 ambulatory LALITA JEROME Facility:[facility] Procedures Date Procedure Procedure Detail Performing Clinician Start: 05-11-2024 Radiologic exam ches t 2 views Summer M Workman PA Work Phone: Start: 05-11-2024 Sars-cov-2 detection by dna/rna Ian Merrill DO Work Phone: Start: 05-11-2024 Infectious agent dna /rna influenza 1st 2 types Ian Merrill DO Work Phone: Start: 03-05-2024 ALL BASIC METABOLIC PANEL Niecy Bahsepideh END WORKER Work Phone: Start: 09-23-2020 Anes intraperitoneal upper abdomen w/laps nos KATE K REEDER Start: 09-23-2020 Laparoscopic cholecystectomy LALITA JEROME Plan of Treatment Date Care Activity Detail Author Start: 06-18-2024 End: 06-18-2024 Patient encounter procedure 06/18/2024 3:20 PM EST Office Visit [facility] [address] [place] [phone] Niecy Molina, JAVIER [address] [place] [phone] [facility] Start: 03-18-2024 End: 03-18-2024 [facility] Comment on above: Tobacco user (Primar y Dx) Start: 03-05-2024 End: 02-12-2025 Basic metabolic 1998 panel - Serum or Plasma Basic metabolic panel Lab Routine Lower extremity edema Expected: 03/05/2024 (Approximate), Expires: 02/12/2025 [facility] Work Phone: Comment on above: Expected: 03/05/2024 (Approximate), Expires: 02/12/2025 Start: 02-13-2024 End: 02-13-2024 Patient encounter procedure 02/13/2024 3:00 PM EDT Office Visit [facility] [address] [place] [phone] Niecy Molina, JAVIER [address] [place] [phone] [facility] [facility] Comment on above: Arrived Start: 01-26-2024 Influenza vaccination Influenz a Vaccine (#1) [facility] Start: 2022 Screening for malign ant neoplasm of cervix [facility] Start: 2013 Screening for malign ant neoplasm of cervix Pap Smear [facility] Patient Education Skin Abscess [facility] Work Phone: Patient referral [facility] Work Phone: Payers Date Payer Category Payer Private Health Insurance [employer] [place] [address] [id number] 2024 Private Health Insurance [id number] 2023 Self-pay [id number] 2022 Medicaid [id number] 2022 Medicaid [id number] 1992 Unknown [id number] [id number]. 647 1992 Unknown [id number] 2.16.840.1.270550.3.579.2. 593 1992 Unknown [id number] 2.16.840.1.397681.3.579.2. 593 1992 Unknown [id number] 2.16.840.1.626752.3.579.2. 593 1992 Unknown [id number] 2.16.840.1.516390.3.579.2. 593 1992 Unknown [id number] 2.16.840.1.044995.3.579.2. 593 1992 Unknown [id number] 2.16.840.1.343526.3.579.2. 593 1992 Unknown [id number] 2.16.840.1.288990.3.579.2. 1259 1992 Unknown [id number] 2.16.840.1.957472.3.579.2. 9 1992 Unknown [id number] 2.16.840.1.021048.3.579.2. 1259 1992 Unknown [id number] 2.16.840.1.591591.3.579.2. 9 1992 Unknown [id number] 2.16.840.1.897473.3.579.2. 1259 1992 Unknown [id number] 2.16.840.1.814365.3.579.2. 9 1992 Unknown [id number] 2.16.840.1.271553.3.579.2. 1259 1959 Unknown [id number] Private Health Insurance [facility] [employer] [id number] Unknown [id number] Unknown [id number]. 531 Social History Date Type Detail Facility Start: 09-12-2023 Tobacco smoking status LAIS Smoker (finding) [facility] Start: 1990 Sex Assigned At Female F [facility] Start: 09-19-2023 End: 05-11-2024 Tobacco smoking status [facility] Smokes tobacco daily [facility] History of tobacco use Cigarette Smoker [facility] Start: 09-19-2023 End: 05-11-2024 Tobacco use and exposure Smokeless tobacco non-user [facility] Start: 02-13-2024 End: 08-14-2024 Alcoholic beverage intake Lifetime non-drinker (finding) [facility] Start: 02-13-2024 End: 05-11-2024 History of Social function [facility] Start: 02-13-2024 End: 05-11-2024 Tobacco use panel [facility] Start: 09-19-2023 Alcohol Comment caffine: 1 cup of coffee daily, 1 energy drink daily [facility] Start: 1990 Sex assigned at Not on file [facility] NEGATED: Highlighted row [facility] History of Present illness Narrative 05-11-2024 Bubba ContrerasCHEPE - 05/11/2024 2:35 PM EST Note Date & Type Note Facility 05-11-2024 History of Presen t illness Narrative Images from the original note were not included. [address], [address] [facility], [address] P: [phone] F: [phone] HPI Historian of HPI: patient Faby Mcconnell is a 33 y.o. female who presents today to the Urgent Care with the following complaints and denials which have been present for 3 day(s). Pt reports 3 days of nasal congestion, dry cough, bilateral ear pain, chills, myalgias, sinus pressure. Denies sob, wheezing, chest pain, hemoptysis. C/O Denies Symptom Comments [x] [] Runny Nose [] [x] Difficulty Swallowing [] [x] Sore Throat [x] [] Cough Dry non productive [x] [] Ear Pain Bilateral [] [x] Fever [x] [] Chills [x] [] Nasal Congestion [x] [] Myalgia [x] [] Sinus Pain Maxillary [x] [] Sinus Pressure Maxillary Additional Comments: pt has taken sudafed OTC medication without relief ROS A complete system ROS was performed and negative aside from the pertinent positives noted in the HPI and PE. IH Testing: The following tests were performed PCR Flu Test PCR COVID Test SEE TEST(S) ORDERS FOR RESULTS PHYSICAL EXAM Physical Exam General Examination: alert, oriented, normal affect, well-appearing, in no acute distress, well developed, well nourished. Head: normocephalic, atraumatic Eyes: sclera non-icteric Ears: auditory canal clear, tympanic membrane intact, clear Nose: congestion noted Oral Cavity: no lesions, mucosa moist Throat: clear, symmetrical rise of soft palate and uvula, no erythema or exudate Lymph Nodes: no cervical adenopathy Heart: regular rate and rhythm, S1, S2 normal Lungs: expiratory wheeze noted right lung, otherwise clear to auscultation bilaterally. Psych: alert, oriented, cognitive function intact, cooperative with exam. TREATMENT PLAN 1. Bronchitis (Primary) Discussed differential diagnosis and treatment with patient including most likely cause being viral. Start prednisone and albuterol, common se ds. Advised symptomatic therapy with OTC Mucinex DM, tylenol, push fluids, cool mist humidifier. Advised if new, worsening, or persistent symptoms to return for immediate re-eval. Will call with CXR results once available. Advised follow up with PCP in 5 days or sooner if needed. Patient voiced understanding and agreement with the plan. All questions/concerns addressed. - predniSONE (Deltasone) 20 MG tablet; Take 2 tabs orally by mouth once daily for 5 days. Dispense: 10 tablet; Refill: 0 - albuterol HFA (Ventolin HFA) 90 mcg/act inhaler; Inhale 2 puffs every 6 (six) hours if needed for wheezing or shortness of breath Dispense: 8 g; Refill: 0 2. Cough, unspecified type Covid, flu both neg, reviewed with pt. CXR bronchitis changes, pt notified via TE. - RAPID DNA COVID - INFLUENZA DNA PROBE - XR chest 2 views documented in this encounter [facility] History of Present illness Narrative 03-18-2024 Niecy Molina NP - 03/18/2024 3:47 PM EDNellie Molina NP - 03/18/2024 3:47 PM Lesley Molina NP - 03/18/2024 3:46 PM EDNellie Molina NP - 03/18/2024 3:45 PM EDT Note Date & Type Note Facility 03-18-2024 History of Presen t illness Narrative Associated Problem(s): Allergic rhinitis Refilled meds Associated Problem(s): Anxiety Continue with current meds Fu in 3 months Associated Problem(s): Lower extremity edema Feels that aldactone 50mg daily Wants to stay at current dose Looses insurance at the end of month Until beginning of the year, requesting 90 day supply Fu in 3 months Associated Problem(s): Primary hypertension (CMS/HCC) Stable at this time, no med dose chagnes Images from the original note were not included. Faby Mcconnell is a 33 y.o. female presents with chief complaint of No chief complaint on file. HPI: Doing well with depression/anxiety: no SI/HI/Hallucinations, taking meds daily as directed. No concerns Last visit started on aldactone for swelling in legs. She states she feels the aldactone works better than prior diuretic. No chest pain/pressure, dyspnea. SUBJECTIVE: MEDICATIONS: Current Outpatient Medications Medication Instructions cetirizine (ZYRTEC) 10 mg, Oral, Daily escitalopram (LEXAPRO) 10 mg, Oral, Daily spironolactone (ALDACTONE) 50 mg, Oral, Daily triamcinolone (Nasacort) 55 MCG/ACT nasal inhaler 2 sprays, Each Nostril, Daily ALLERGIES: Allergies Allergen Reactions Bactrim [Sulfamethoxazole-Trimethoprim] Hives Penicillins Trimethoprim GI intolerance REVIEW OF SYMPTOMS: Review of Systems Constitutional: Negative for appetite change, chills and fever. HENT: Negative for congestion, ear pain and sore throat. Eyes: Negative for pain, discharge, redness and visual disturbance. Respiratory: Negative for cough, shortness of breath and wheezing. Cardiovascular: Positive for leg swelling. Negative for chest pain and palpitations. Gastrointestinal: Negative for abdominal pain, blood in stool, constipation, diarrhea, nausea and vomiting. Genitourinary: Negative for difficulty urinating, dysuria and frequency. Musculoskeletal: Negative for arthralgias, back pain, joint swelling and myalgias. Skin: Negative for rash and wound. Neurological: Negative for dizziness, tremors, seizures, syncope and headaches. Psychiatric/Behavioral: Negative for behavioral problems, self-injury and suicidal ideas. The patient is not nervous/anxious. Hematological: Does not bruise/bleed easily. Endocrine: Negative for polydipsia, polyphagia and polyuria. Allergic/Immunologic: Negative for environmental allergies and food allergies. PAST MEDICAL HISTORY Past Medical History: Diagnosis Date Allergic rhinitis 07/11/2023 Anxiety Asymptomatic microscopic hematuria 07/11/2023 Bilateral acute serous otitis media, recurrence not specified 07/11/2023 COVID-19 virus detected Cutaneous candidiasis 07/11/2023 Dental infection 07/11/2023 Depression with anxiety 07/11/2023 Elevated LFTs 07/11/2023 Headache, migraine (CMS/HCC) 07/11/2023 Lower extremity edema 07/11/2023 Obstructive sleep apnea, adult 07/11/2023 Primary hypertension (CMS/HCC) 07/11/2023 Seizure (CMS/HCC) 07/11/2023 Tension headache 07/11/2023 Tobacco user 07/11/2023 Tonsillitis 07/11/2023 Past Surgical History: Procedure Laterality Date SECTION, LOW TRANSVERSE CHOLECYSTECTOMY family history includes Cancer in her mother; Diabetes in her mother. OBJECTIVE: Visit Vitals BP 124/86 (BP Location: Left arm, Patient Position: Sitting, BP Cuff Size: Adult long) Comment (BP Location): forarm Pulse 94 Temp 98.7 F (Temporal) Resp 18 Ht 5' 3 Wt (!) 406 lb SpO2 97% BMI 71.92 kg/m Smoking Status Every Day BSA 2.86 m Physical Exam Vitals and nursing note reviewed. Constitutional: General: She is not in acute distress. Appearance: Normal appearance. HENT: Head: Normocephalic and atraumatic. Right Ear: External ear normal. Left Ear: External ear normal. Nose: Nose normal. Mouth/Throat: Mouth: Mucous membranes are moist. Eyes: Extraocular Movements: Extraocular movements intact. Conjunctiva/sclera: Conjunctivae normal. Cardiovascular: Rate and Rhythm: Normal rate and regular rhythm. Pulses: Normal pulses. Heart sounds: Normal heart sounds. Pulmonary: Effort: Pulmonary effort is normal. Breath sounds: Normal breath sounds. Musculoskeletal: General: Normal range of motion. Cervical back: Normal range of motion and neck supple. Right lower leg: Edema present. Left lower leg: Edema present. Skin: General: Skin is warm and dry. Capillary Refill: Capillary refill takes 2 to 3 seconds. Findings: No rash. Neurological: General: No focal deficit present. Mental Status: She is alert and oriented to person, place, and time. Psychiatric: Mood and Affect: Mood normal. Behavior: Behavior normal. Thought Content: Thought content normal. Judgment: Judgment normal. ASSESSMENT AND PLAN: No follow-ups on file. Problem List Items Addressed This Visit Primary hypertension (CMS/HCC) Stable at this time, no med dose chagnes Lower extremity edema - Primary Feels that aldactone 50mg daily Wants to stay at current dose Looses insurance at the end of month Until beginning of the year, requesting 90 day supply Fu in 3 months Relevant Medications spironolactone (Aldactone) 50 MG tablet Tobacco user The patient has been advised of the risks of continued smoking: stroke, MA, all forms of cancer, lung disease, and . Options for quitting smoking include: cold turkey, hypnosis, acupuncture, nicotine replacement meds (gum, lozenges, and patches), Buproprion, and Varenicline. At this time pt is encouraged to evaluate their goals for wanting to quit smoking, and reach out to provider when ready to start this process Allergic rhinitis Refilled meds Relevant Medications cetirizine (ZyrTEC) 10 MG tablet triamcinolone (Nasacort) 55 MCG/ACT nasal inhaler Class 3 severe obesity without serious comorbidity in adult (CMS/HCC) Anxiety Continue with current meds Fu in 3 months Relevant Medications escitalopram (Lexapro) 10 MG tablet Associated Problem(s): Tobacco user The patient has been advised of the risks of continued smoking: stroke, MA, all forms of cancer, lung disease, and . Options for quitting smoking include: cold turkey, hypnosis, acupuncture, nicotine replacement meds (gum, lozenges, and patches), Buproprion, and Varenicline. At this time pt is encouraged to evaluate their goals for wanting to quit smoking, and reach out to provider when ready to start this process documented in this encounter [facility] History of Present illness Narrative 02-13-2024 Niecy Molina NP - 02/13/2024 4:53 PM Lesley Molina NP - 02/13/2024 3:28 PM EDKIERRA BOYLE - 02/13/2024 3:00 PM Lesley Molina NP - 02/13/2024 3:00 PM EDT Note Date & Type Note Facility 02-13-2024 History of Presen t illness Narrative Associated Problem(s): Lower extremity edema Not regularly taking lasix Will trial aldactone at 50mg daily Fu in 4 weeks for recheck Labs 1 week prior to appt Associated Problem(s): Tobacco user Smokes about : 1/2 ppd The patient has been advised of the risks of continued smoking: stroke, MA, all forms of cancer, lung disease, and . Options for quitting smoking include: cold turkey, hypnosis, acupuncture, nicotine replacement meds (gum, lozenges, and patches), Buproprion, and Varenicline. At this time pt is encouraged to evaluate their goals for wanting to quit smoking, and reach out to provider when ready to start this process Pt has a red rash on both of her lower legs that started 2 weeks ago- itches Pt has used a eczema lotion but did not help. Pt states it does not bother her when she works- she wears pants. Pt would like to have a refill on her lexapro and lasix Images from the original note were not included. Faby Mcconnell is a 33 y.o. female presents with chief complaint of No chief complaint on file. HPI: Depression Visit Type: follow-up Patient presents with the following symptoms: depressed mood, feelings of hopelessness, irritability, muscle tension, nervousness/anxiety, psychomotor retardation and weight gain. Patient is not experiencing: anhedonia, choking sensation, confusion, decreased concentration, excessive worry, feelings of worthlessness, hypersomnia, impotence, insomnia, palpitations, panic, shortness of breath, suicidal ideas, suicidal planning and thoughts of . Severity: mild Sleep quality: fair No history of: CAD Compliance with medications: 76-100% Anxiety Presents for follow-up visit. Symptoms include depressed mood, irritability, muscle tension and nervous/anxious behavior. Patient reports no chest pain, confusion, decreased concentration, dizziness, excessive worry, impotence, insomnia, nausea, palpitations, panic, shortness of breath or suicidal ideas. Symptoms occur occasionally. The severity of symptoms is moderate. The quality of sleep is poor. There is no history of CAD. Compliance with medications is 76-100%. Edema Presents with chronic edema. The current episode started more than 1 year ago. The onset of the episode was gradual. These episodes happen throughout the day. The problem presents itself constantly. The problem has been waxing and waning. The edema is present on the both side(s). Risk factors for edema include no known risk factors. Associated agents include not taking diuretics. Associated symptoms include weight change. Pertinent negative symptoms include no abdominal pain, no abdominal swelling, no chest pain, no cough, no decreased urine volume, no fever, no nausea, no nocturia, no palpitations, no presyncope, no syncope and no vomiting. Pertinent negative history includes no CAD, no chronic renal disease, no hepatitis, no recent surgery and no varicose veins. Treatments tried include diuretics. There has been mild improvement on treatment(s). SUBJECTIVE: MEDICATIONS: Current Outpatient Medications Medication Instructions cetirizine (ZYRTEC) 10 mg, Oral, Daily escitalopram (LEXAPRO) 10 mg, Oral, Daily furosemide (LASIX) 40 mg, Oral, Daily triamcinolone (Nasacort) 55 MCG/ACT nasal inhaler 2 sprays, Each Nostril, Daily ALLERGIES: Allergies Allergen Reactions Bactrim [Sulfamethoxazole-Trimethoprim] Hives Penicillins Trimethoprim GI intolerance REVIEW OF SYMPTOMS: Review of Systems Constitutional: Positive for irritability and weight gain. Negative for appetite change, chills and fever. HENT: Negative for congestion, ear pain and sore throat. Eyes: Negative for pain, discharge, redness and visual disturbance. Respiratory: Negative for cough, choking, shortness of breath and wheezing. Cardiovascular: Positive for leg swelling. Negative for chest pain, palpitations and syncope. Gastrointestinal: Negative for abdominal pain, blood in stool, constipation, diarrhea, nausea and vomiting. Genitourinary: Negative for decreased urine volume, difficulty urinating, dysuria, frequency, impotence and nocturia. Musculoskeletal: Negative for arthralgias, back pain, joint swelling and myalgias. Skin: Negative for rash and wound. Neurological: Negative for dizziness, tremors, seizures, syncope and headaches. Psychiatric/Behavioral: Positive for depression. Negative for behavioral problems, confusion, decreased concentration, self-injury and suicidal ideas. The patient is nervous/anxious. The patient does not have insomnia. Hematological: Does not bruise/bleed easily. Endocrine: Negative for polydipsia, polyphagia and polyuria. Allergic/Immunologic: Negative for environmental allergies and food allergies. PAST MEDICAL HISTORY Past Medical History: Diagnosis Date Allergic rhinitis 07/11/2023 Anxiety Asymptomatic microscopic hematuria 07/11/2023 Bilateral acute serous otitis media, recurrence not specified 07/11/2023 COVID-19 virus detected Cutaneous candidiasis 07/11/2023 Dental infection 07/11/2023 Depression with anxiety 07/11/2023 Elevated LFTs 07/11/2023 Headache, migraine (CMS/HCC) 07/11/2023 Lower extremity edema 07/11/2023 Obstructive sleep apnea, adult 07/11/2023 Primary hypertension (CMS/HCC) 07/11/2023 Seizure ([facility]/HCC) 07/11/2023 Tension headache 07/11/2023 Tobacco user 07/11/2023 Tonsillitis 07/11/2023 Past Surgical History: Procedure Laterality Date SECTION, LOW TRANSVERSE CHOLECYSTECTOMY family history includes Cancer in her mother; Diabetes in her mother. OBJECTIVE: Visit Vitals BP 122/80 (BP Location: Left arm, Patient Position: Sitting, BP Cuff Size: Large adult long) Pulse 94 Temp 98.7 F (Temporal) Resp 19 Ht 5' 3 Wt (!) 407 lb 12.8 oz SpO2 99% BMI 72.24 kg/m Smoking Status Every Day BSA 2.87 m Physical Exam Vitals and nursing note reviewed. Constitutional: General: She is not in acute distress. Appearance: Normal appearance. HENT: Head: Normocephalic and atraumatic. Right Ear: External ear normal. Left Ear: External ear normal. Nose: Nose normal. Mouth/Throat: Mouth: Mucous membranes are moist. Eyes: Extraocular Movements: Extraocular movements intact. Conjunctiva/sclera: Conjunctivae normal. Neck: Vascular: No carotid bruit. Cardiovascular: Rate and Rhythm: Normal rate and regular rhythm. Pulses: Normal pulses. Heart sounds: Normal heart sounds. Pulmonary: Effort: Pulmonary effort is normal. Breath sounds: Normal breath sounds. Abdominal: General: Bowel sounds are normal. There is no distension. Palpations: Abdomen is soft. There is no mass. Tenderness: There is no abdominal tenderness. Musculoskeletal: General: Normal range of motion. Cervical back: Normal range of motion and neck supple. Right lower leg: Edema present. Left lower leg: Edema present. Comments: Bilat LE: edema 1-2+ bilat with mild erythema bilat not warm to touch nothing to suggest cellulitis to need atb Skin: General: Skin is warm and dry. Capillary Refill: Capillary refill takes 2 to 3 seconds. Findings: No rash. Neurological: General: No focal deficit present. Mental Status: She is alert and oriented to person, place, and time. Psychiatric: Mood and Affect: Mood normal. Behavior: Behavior normal. Thought Content: Thought content normal. Judgment: Judgment normal. ASSESSMENT AND PLAN: No follow-ups on file. Problem List Items Addressed This Visit Lower extremity edema Not regularly taking lasix Will trial aldactone at 50mg daily Fu in 4 weeks for recheck Labs 1 week prior to appt Relevant Medications spironolactone (Aldactone) 50 MG tablet Other Relevant Orders Basic metabolic panel Tobacco user - Primary Smokes about : 1/2 ppd The patient has been advised of the risks of continued smoking: stroke, MA, all forms of cancer, lung disease, and . Options for quitting smoking include: cold turkey, hypnosis, acupuncture, nicotine replacement meds (gum, lozenges, and patches), Buproprion, and Varenicline. At this time pt is encouraged to evaluate their goals for wanting to quit smoking, and reach out to provider when ready to start this process Depression with anxiety Class 3 severe obesity without serious comorbidity in adult (CMS/[facility]) Anxiety Relevant Medications escitalopram (Lexapro) 10 MG tablet documented in this encounter [facility] Evaluation note Note Date & Type Note Facility Evaluation note No assessment information [facility] Work Phone: Evaluation note Note Date & Type Note Facility Evaluation note Diagnosis Anxiety- Primary Anxiety state, unspecified Primary hypertension (CMS/HCC) Unspecified essential hypertension Elevated LFTs Other abnormal blood chemistry Asymptomatic microscopic hematuria Lower extremity edema Edema Tobacco user Tobacco use disorder Class 3 severe obesity without serious comorbidity in adult, unspecified BMI, unspecified obesity type (CMS/HCC) Abscess Cellulitis and abscess of unspecified site Anxiety- Primary Anxiety state, unspecified Class 3 severe obesity without serious comorbidity in adult, unspecified BMI, unspecified obesity type (CMS/HCC) Abscess Cellulitis and abscess of unspecified site Lower extremity edema- Primary Edema Tobacco user Tobacco use disorder Depression with anxiety Dysthymic disorder Anxiety Anxiety state, unspecified Class 3 severe obesity without serious comorbidity in adult, unspecified BMI, unspecified obesity type (CMS/HCC) Anxiety Anxiety state, unspecified Lower extremity edema Edema documented in this encounter [facility] Evaluation note Note Date & Type Note Facility Evaluation note Diagnosis Anxiety- Primary Anxiety state, unspecified Primary hypertension (CMS/HCC) Unspecified essential hypertension Elevated LFTs Other abnormal blood chemistry Asymptomatic microscopic hematuria Lower extremity edema Edema Tobacco user Tobacco use disorder Class 3 severe obesity without serious comorbidity in adult, unspecified BMI, unspecified obesity type (CMS/HCC) Abscess Cellulitis and abscess of unspecified site Anxiety- Primary Anxiety state, unspecified Class 3 severe obesity without serious comorbidity in adult, unspecified BMI, unspecified obesity type (CMS/HCC) Abscess Cellulitis and abscess of unspecified site Lower extremity edema- Primary Edema Tobacco user Tobacco use disorder Depression with anxiety Dysthymic disorder Anxiety Anxiety state, unspecified Class 3 severe obesity without serious comorbidity in adult, unspecified BMI, unspecified obesity type (CMS/HCC) Lower extremity edema- Primary Edema Tobacco user Tobacco use disorder Anxiety Anxiety state, unspecified Seasonal allergic rhinitis, unspecified trigger Primary hypertension (CMS/HCC) Unspecified essential hypertension Class 3 severe obesity without serious comorbidity in adult, unspecified BMI, unspecified obesity type (CMS/HCC) documented in this encounter [facility] Evaluation note Note Date & Type Note Facility Evaluation note Diagnosis Anxiety- Primary Anxiety state, unspecified Primary hypertension (CMS/HCC) Unspecified essential hypertension Elevated LFTs Other abnormal blood chemistry Asymptomatic microscopic hematuria Lower extremity edema Edema Tobacco user Tobacco use disorder Class 3 severe obesity without serious comorbidity in adult, unspecified BMI, unspecified obesity type (CMS/HCC) Abscess Cellulitis and abscess of unspecified site Anxiety- Primary Anxiety state, unspecified Class 3 severe obesity without serious comorbidity in adult, unspecified BMI, unspecified obesity type (CMS/HCC) Abscess Cellulitis and abscess of unspecified site Lower extremity edema- Primary Edema Tobacco user Tobacco use disorder Depression with anxiety Dysthymic disorder Anxiety Anxiety state, unspecified Class 3 severe obesity without serious comorbidity in adult, unspecified BMI, unspecified obesity type (CMS/HCC) Lower extremity edema- Primary Edema Tobacco user Tobacco use disorder Anxiety Anxiety state, unspecified Seasonal allergic rhinitis, unspecified trigger Primary hypertension (CMS/HCC) Unspecified essential hypertension Class 3 severe obesity without serious comorbidity in adult, unspecified BMI, unspecified obesity type (CMS/HCC) Bronchitis- Primary Bronchitis, not specified as acute or chronic Cough, unspecified type documented in this encounter [facility] Evaluation note Note Date & Type Note Facility Evaluation note Diagnosis Lower extremity edema- Primary Edema Tobacco user Tobacco use disorder Depression with anxiety Dysthymic disorder Anxiety Anxiety state, unspecified Class 3 severe obesity without serious comorbidity in adult, unspecified BMI, unspecified obesity type (CMS/HCC) documented in this encounter [facility] Evaluation note Note Date & Type Note Facility Evaluation note Diagnosis Anxiety- Primary Anxiety state, unspecified Primary hypertension (CMS/HCC) Unspecified essential hypertension Elevated LFTs Other abnormal blood chemistry Asymptomatic microscopic hematuria Lower extremity edema Edema Tobacco user Tobacco use disorder Class 3 severe obesity without serious comorbidity in adult, unspecified BMI, unspecified obesity type (CMS/HCC) Abscess Cellulitis and abscess of unspecified site Anxiety- Primary Anxiety state, unspecified Class 3 severe obesity without serious comorbidity in adult, unspecified BMI, unspecified obesity type (CMS/HCC) Abscess Cellulitis and abscess of unspecified site Lower extremity edema- Primary Edema Tobacco user Tobacco use disorder Depression with anxiety Dysthymic disorder Anxiety Anxiety state, unspecified Class 3 severe obesity without serious comorbidity in adult, unspecified BMI, unspecified obesity type (CMS/HCC) Lower extremity edema- Primary Edema Tobacco user Tobacco use disorder Anxiety Anxiety state, unspecified Seasonal allergic rhinitis, unspecified trigger Primary hypertension (CMS/HCC) Unspecified essential hypertension Class 3 severe obesity without serious comorbidity in adult, unspecified BMI, unspecified obesity type (CMS/HCC) Acute non-recurrent sinusitis of other sinus- Primary documented in this encounter [facility] Evaluation note Note Date & Type Note Facility Evaluation note Diagnosis Anxiety- Primary Anxiety state, unspecified Primary hypertension (CMS/HCC) Unspecified essential hypertension Elevated LFTs Other abnormal blood chemistry Asymptomatic microscopic hematuria Lower extremity edema Edema Tobacco user Tobacco use disorder Class 3 severe obesity without serious comorbidity in adult, unspecified BMI, unspecified obesity type Abscess Cellulitis and abscess of unspecified site Anxiety- Primary Anxiety state, unspecified Class 3 severe obesity without serious comorbidity in adult, unspecified BMI, unspecified obesity type Abscess Cellulitis and abscess of unspecified site Lower extremity edema- Primary Edema Tobacco user Tobacco use disorder Depression with anxiety Dysthymic disorder Anxiety Anxiety state, unspecified Class 3 severe obesity without serious comorbidity in adult, unspecified BMI, unspecified obesity type Lower extremity edema- Primary Edema Tobacco user Tobacco use disorder Anxiety Anxiety state, unspecified Seasonal allergic rhinitis, unspecified trigger Primary hypertension (CMS/HCC) Unspecified essential hypertension Class 3 severe obesity without serious comorbidity in adult, unspecified BMI, unspecified obesity type Lower extremity edema Edema documented in this encounter [facility] Summary Purpose Family History No Family History Records FoundNo Family History Records FoundNo Family History Records FoundNo Family History Records FoundNo Family History Records Found Advance Directives Advance Directive Response Recorded Date/ Time Advance Directives No October 15 3:54pm Chief Complaint and Reason for Visit Chief Complaint neck wound Additional Source Comments INFORMATION SOURCE (unrecogn ized section and content) DATE CREATED AUTHOR 09/05/2020 [facility] DATE CREATED AUTHOR AUTHOR'S ORGANIZ ATION 11/12/2020 [facility] DATE CREATED AUTHOR AUTHOR'S ORGANIZ ATION 05/16/2022 [facility] DATE CREATED AUTHOR AUTHOR'S ORGANIZ ATION 09/24/2023 [facility] DATE CREATED AUTHOR AUTHOR'S ORGANIZ ATION 08/16/2024 [facility] EPIC Care Teams (unrecognized sec tion and content) Team Status: Active Member Role Status Dates Niecy Molina Primary Care Provider Active Team Status: Inactive Member Role Status Dates Niecy Molina Primary Care Provider Active Sta rt: September 12, 2023 End: September 12, 2023 Dung Cespedes APRN Emergency Provider Active Start: September 12, 2023 End: September 12, 2023 [employer] Relationship Specialty Start Date End Date Alonzo Tipton MD [address] [place] [phone] PCP - General Family Medicine 07/08/23 Neicy Molina NP [address] [place] [phone] Referring Physician Nurse Practitioner 12/12/22 [employer] Relationship Specialty Start Date End Date Alonzo Tipton MD [address] [place] [phone] PCP - General Family Medicine 07/08/23 Niecy Molina NP [address] [place] [phone] Referring Physician Nurse Practitioner 12/12/22 Livestock Haulier Relationship Specialty Start Date End Date Unallocated, MD Shashi Pérez [facility] [place] [address] PCP - General Family Medicine 03/18/24 Niecy Molina NP [address] [place] [phone] Referring Physician Nurse Practitioner 12/12/22 Livestock Ha[employer]ier Relationship Specialty Start Date End Date Unallocated, MD Shashi [place] [address] PCP - General Family Medicine 03/18/24 Niecy Molina NP [address] [place] [phone] Referring Physician Nurse Practitioner 12/12/22 Livestock Ha[employer]ier Relationship Specialty Start Date End Date Alonzo Tipton MD [address] [place] [phone] PCP - General Family Medicine 03/26/24 Niecy Molina NP [address] [place] [phone] Referring Physician Nurse Practitioner 12/12/22 Livestock Ha[employer]ier Relationship Specialty Start Date End Date Alonzo Tipton MD [address] [place] [phone] PCP - General Family Medicine 07/08/23 Niecy Molina NP [address] [place] [phone] Referring Physician Nurse Practitioner 12/12/22 Livestock Ha[employer]ier Relationship Specialty Start Date End Date Alonzo Tipton MD [address] [place] [phone] PCP - General Family Medicine 07/08/23 Niecy Molina NP [address] [place] [phone] Referring Physician Nurse Practitioner 12/12/22 Livestock Ha[employer]ier Relationship Specialty Start Date End Date Alonzo Tipton MD [address] [place] [phone] PCP - General Family Medicine 03/26/24 Niecy Molina NP [address] [place] [phone] Referring Physician Nurse Practitioner 12/12/22 Livestock Ha[employer]ier Relationship Specialty Start Date End Date Alonzo Tipton MD [address] [place] [phone] PCP - General Family Medicine 03/26/24 Niecy Molina NP [address] [place] [phone] Referring Physician Nurse Practitioner 12/12/22 Goals (unrecognized section and content) Goals may [...] BE BASED ON THE PRIMARY CLINICAL RECORDS. [facility]. provides no warranty or guarantee of the accuracy or completeness of information in this document.
--- NOTE | 2024-11-22 16:48 | ED.GENADUL1 ---
HPI HPI - General Adult General Chief complaint: Headache Stated complaint: headache Time Seen by Provider: 11/22/24 16:42 Source: patient Limitations: no limitations History of Present Illness HPI narrative: 34-year-old female presents to the emergency department for a headache. 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 No trauma fever or stiff neck and she woke up with it this morning. She took some ibuprofen at home. No localized weakness. The pain is moderate to severe and continuous. Related Data Home Medications ?Medication ?Instructions ?Recorded ?Confirmed furosemide 20 mg tablet 20 mg PO DAILY 07/21/23 11/22/24 Previous Rx's ?Medication ?Instructions ?Recorded ondansetron 4 mg disintegrating 4 mg PO TID PRN nausea and 07/21/23 tablet vomiting 48 hours #6 tabs oseltamivir 75 mg capsule (Tamiflu) 75 mg PO BID 5 days #10 caps 07/21/23 Allergies Allergy/AdvReac Type Severity Reaction Status Date / Time Penicillins Allergy Intermediate Verified 07/21/23 12:22 Opioid HPI Opioid Management Most Recent Opioid Data: Last Pain Scale 8 Today, 17:00 Last MAR Pain Assessment Today, 17:00 Review of Systems ROS Narrative A ten point review of systems is negative except as noted above. PFSH PFSH Social History Smoking status: Former smoker Little interest or pleasure in doing things: not at all Feeling down, depressed, or hopeless: not at all Exam Narrative Exam Narrative: Nurses note and vital signs reviewed and patient is not hypoxic. General: The patient appears well and in no apparent distress. Skin: Warm, dry, no pallor noted. There is no rash noted. Head: Normocephalic, atraumatic Eye: Normal conjunctiva, no drainage, EOMI. PERRL Ears, Nose, Mouth, and Throat: oral mucosa is moist. Nares patent. Cardiovascular: Regular Rate and Rhythm Respiratory: Patient is in no distress, no accessory muscle use, lungs are clear to auscultation, no wheezing, rales or rhonchi Back: non-tender GI: Obese and nontender Musculoskeletal: The patient has no evidence of calf tenderness, no pitting edema, symmetrical pulses noted bilaterally Neurological: A&O x4, normal speech; upper and lower extremity strength intact Psychiatric: Cooperative Constitutional Vital Signs, click to edit/add: Last Vital Signs Temp 98.6 F 11/22/24 16:40 Pulse 95 H 11/22/24 16:40 Resp 18 11/22/24 16:40 BP 160/98 H 11/22/24 16:40 Pulse Ox 98 11/22/24 16:40 O2 Del Method Room Air 11/22/24 16:40 Course Vital Signs Vital signs: Vital Signs Temperature 98.6 F 11/22/24 16:40 Pulse Rate 95 H 11/22/24 16:40 Respiratory Rate 18 11/22/24 16:40 Blood Pressure 160/98 H 11/22/24 16:40 Pulse Oximetry 98 11/22/24 16:40 Oxygen Delivery Method Room Air 11/22/24 16:40 Temperature 98.6 F 11/22/24 16:40 Pulse Rate 95 H 11/22/24 16:40 Respiratory Rate 18 11/22/24 16:40 Blood Pressure 160/98 H 11/22/24 16:40 Pulse Oximetry 98 11/22/24 16:40 Oxygen Delivery Method Room Air 11/22/24 16:40 Medical Decision Making MDM Narrative Medical decision making narrative: The patient was given IV Toradol, Solu-Medrol, Benadryl, and Zofran and feels improved. She is able to be discharged home. I have no clinical suspicion of acute intracranial pathology or meningitis. Differential Diagnosis Differential Diagnosis: Migraine headache, headache, meningitis, intracranial hemorrhage Discharge Plan Discharge Chief Complaint: Headache Clinical Impression: Headache Patient Disposition: Home, Self-Care Time of Disposition Decision: 18:09 Condition: Good Mode of Transportation: Private Vehicle Prescriptions / Home Meds: No Action furosemide 20 mg tablet 20 mg PO DAILY oseltamivir [Tamiflu] 75 mg capsule 75 mg PO BID 5 Days Qty: 10 0RF ondansetron 4 mg tablet,disintegrating 4 mg PO TID PRN (Reason: nausea and vomiting) 2 Days Qty: 6 0RF Print Language: Iranian Instructions: Acute Headache (ED) Referrals: Niecy Molina NP [Primary Care Provider, Family Practice] - 1 week
[2024-11-22] MEDS: KETOROLAC TROMETHAMINE 30 MG/ML VIAL IVP (17:00)
[2024-11-22] MEDS: DIPHENHYDRAMINE HCL 50 MG/ML VIAL 25 MG IVP (17:00)
[2024-11-22] MEDS: METHYLPREDNISOLONE SOD SUCC PF 125 MG/2 ML VIAL IVP (17:00)
[2024-11-22] MEDS: ONDANSETRON PF 4 MG/2 ML VIAL IV (17:01)
== END 2024-11-22 18:25 | disposition home or self-care (01) ==
PROVIDERS: Emergency Provider Emergency Medicine; PCP Nurse Practitioner
DX: R51.9 Headache, unspecified (principal); Z87.891 Personal history of nicotine dependence
CPT/HCPCS: 96374; 96375; 99284; J1200; J1885; J2405; J2919

== ENCOUNTER 2025-03-31 07:46 | Outpatient (OUT) | payer MEDICAID, SELFPAY ==
--- OUTSIDE RECORDS SUMMARY | 2025-03-31 07:51 | XMS_ITS | Clinical Summary ---
Author Organization [facility] Address [id number] [place] [address] Care Team Providers Care Charge Loader Name Role Phone Neno Murphy DO Primary Care Provider Sridhar guallpa Allergies Active AllergyReactionsCriticalityNoted VuewDxztaehbEpzqcjzcljt09/31/2017 Medications MedicationSigDispense QuantityRefillsLast FilledStart DateEnd DateStatus albuterol (PROVENTIL HFA;VENTOLIN HFA) 90 mcg/actuation inhaler Inhale 2 puffs every 6 (six) hours as needed for wheezing.Active Social History Tobacco UseTypesPacks/DayYears UsedDateSmoking Tobacco: Every DayCigarettes Tobacco Cessation:Ready to Q uit: No Alcohol UseStandard Drinks/WeekCommentsNo0 (1 standard drink = 0.6 oz pure alcohol)ChildcareAnswerDate PvssfummGclopelocOcjngmi27/12/2019EmploymentAnswer Date FxxpdeubIbvmxosoxzCfezaci04/12/2019Purpose - LifeAnswerDate RecordedPurpose and direction in jmmgIvvmmte96/11/2021CommentsUnknownSex and Gender InformationValueDate RecordedSex Assigned at BirthNot on fileLegal SexFemale 12/30/2014 12:06 PM EDTGender IdentityNot on fileSexual OrientationNot on file Last Filed Vital Signs Vital SignReadingTime TakenCommentsBlood Iuccvmlp116/9607 12:01 AM EDT Ipwhv729612/11/2016 12:07 AM UKEAnysxxbsjnc00.8 ??C (98.3 ??F)12/10/2016 11:55 PM EDTRespiratory Tzzg940812/11/2016 12:07 AM EDTOxygen Ltmxudplqi127%12/11/2016 12:07 AM EDTInhaled Oxygen Concentration--Fkwnwg908.7 kg (275 lb)12/10/2016 11:55 PM NMYPusijh603 cm (5' 3 )12/10/2016 11:55 PM EDTBody Mass Index48.71 12/10/2016 11:55 PM EDT Plan of Treatment Health MaintenanceDue DateLast DoneCommentsDepression Wldfhvbjg88/19/2005Tobacco Dbecodclr69/19/2005Adult BMI Fhlzdqnpg46/19/2011DTaP,Tdap and Td Vaccines (1 - Tdap)2011Pap Smear2013Influenza Tbsmoli7301/25/2025 Medical Devices Not on file Insurance Care Teams Team MemberRelationshipSpecialtyStart DateEnd Date Neno Murphy, PCP - [facility]10/24/16
--- OUTSIDE RECORDS SUMMARY | 2025-03-31 07:51 | XMS_ITS | Clinical Summary ---
Author Organization [facility] Address [address] [place] [address] Care Team Providers Care Field Agent Name Role Phone Unavailable Primary Care Provider Unavailabl e Social History Tobacco UseTypesPacks/DayYears UsedDateSmoking Tobacco: Never AssessedUT Safety & EnvironmentAnswerDate RecordedFear of Current or Ex-PartnerNot on file 07/18/2023Emotionally AbusedNot on file07/18/2023hysically AbusedNot on file 07/18/2023Sexually AbusedNot on file07/18/2023hysically or Sexually AbusedNot on file07/18/2023CommentsUnknownSex and Gender InformationValueDate RecordedSex Assigned at BirthNot on fileLegal UxwBpariy49/30/2022 12:36 AM EDT Gender IdentityNot on fileSexual OrientationNot on file Last Filed Vital Signs Vital SignReadingTime TakenCommentsBlood Bltolmya389/8305 3:01 PM EDT Qcwai623310/05/2020 3:01 PM NUCVwxcogclunj19.9 ??C (98.4 ??F)10/05/2020 3:00 PM EDTRespiratory Rate--Oxygen Saturation--Inhaled Oxygen Concentration--Kncaiq502 kg (247 lb)10/05/2020 2:58 PM TQUXwhiwx067 cm (5' 3 )10/05/2020 2:58 PM EDTBody Mass Index43.75010/05/2020 2:58 PM EDT Plan of Treatment Not on file
--- OUTSIDE RECORDS SUMMARY | 2025-03-31 07:51 | XMS_ITS | Patient Health Record ---
Author Organization [employer] [facility] es Address [address] [place] [address] Care Team Providers Care Occ Med Physician Name Role Phone Dr. Thee Sin Primary Care Provider Reason For Referral No Information Medications Medication SIG (Take, Route, Frequency, Duration) Notes Start Date End Date Status Ibuprofen 800 MG Tablet 1 tablet with fo od or milk as needed Orally Three times a day 2ActiveIbuprofen 800 MG Tablet1 tablet with food or milk as needed Orally Three times a day2Active Plan Of Treatment No Information Insurance Providers Payer Name Payer Address Payer Phone Subscriber Number Group Number Insured Name Patient Relationship to Insured Coverage Start Date Coverage End Date z[employer]-termed 06/26/22 [address] [place] [address] [id number] JAYESH Jose Antonio - [id number] MedicaidPO [address] [place] [id number] Jose Antonio - patient is the fwcfhtw4406/27/2022[address] [facility] after [employer]- termed 06/26/22[address] [place] [id number] JAYESH Jose Antonio - patient is the [id number] [facility] [employer] BCBSP[address] [place] [id number], SUZANNESelf - patient is the cpwyuyg9206/27/2022zDENTAL DQ [employer]-termed 06/26/22[address] [place] [id number] HEMJose Antonio CRUZ - patient is the ynywzrj68zDental MEDICAID [facility] after [employer]-termed 06/26/[address] [place] [phone] [id number], SUZANNESelf - patient is the gzerycl3009/24/2021 3Dental [employer] DQ Terminated 05/26/[address] [place] [id number], SUZANNESelf - patient is the insured 3Dental Wrap [facility] [employer] BCBS Termed [address] [place] [id number], SUZANNESelf - patient is the ikfuphk0306/27/2022
--- OUTSIDE RECORDS SUMMARY | 2025-03-31 07:51 | XMS_ITS | Clinical Summary ---
Author Organization [facility] Address [address] [place] [address] Care Team Providers Care Glass Cutting Machine Operator Name Role Phone Niecy Molnia NP Unavailable [phone] Alonzo Tipton MD Primary Care Provider Allergies Active AllergyReactionsCriticalityNoted DateComments Sulfamethoxazole-JrijrdbnavjjQkoly70/09/3095Fbmhmzxpsbn12/09/2023TrimethoprimGI groqkmvxehf57/05/2021 Medications MedicationSigDispense QuantityRefillsLast FilledStart DateEnd DateStatus SUMAtriptan (Imitrex) 100 MG tablet Indications:Migraine without aura and without status migrainosus, not intractable1 at the onset of migraine headache, repeat in 2 hours if needed. Max 2 pills in 24 hours, no more than twice a week 9 tablet 5Active spironolactone (Aldactone) 100 MG tablet Indications:Lower extremity edemaTake 1 tablet (100 mg) by mouth Daily 90 tablet 5Active Active Problems ProblemNoted DateDiagnosed DateMigraine without aura and without status migrainosus, not npkhjozhtkl12/15/2025ody mass index (BMI) 70 or greater, adult 06/18/2024bnormal lvuugapdtt26/09/2024Class 3 severe obesity without serious comorbidity in adult09/19/2023 Assessment & Plan (12/08/2024 7:01 AM EDT): Discussed with patient their BMI (actual, verses recommended). We have also discussed lifestyle modifications: attempts to perform physical activity as chronic conditions allow, also to monitor dietary intake: increasing protein/fruits/veggies and lowering carb intake (unless contraindicated). Limit sodas, juices, and sugary drinks. Wwtmkcn9609/19/2023 Assessment & Plan (03/18/2024 3:47 PM EDT): [...] prn anxiety Fu in 3 weeks Unspecified uahljcaccri17/15/2024Obstructive sleep apnea, adult07/11/2023Tension byitrisg84/15/2024rimary /15/2024 Assessment & Plan (12/08/2024 3:54 PM EDT): Please check blood pressure daily and record DASH diet Limit caffeine Take medication as directed Contact office if chest pain, pressure, dizziness, shortness of breath, swelling legs Recommend slow position changes Meds: aldactone Assessment & Plan (03/18/2024 3:45 PM EDT): Stable at this time, no med dose chagnes Assessment & Plan (09/19/2023 4:36 PM EDT): Not currently on meds at this time, and will check updated labs Elevated LFTs07/11/2023symptomatic microscopic hzoddudvc35/15/2024Lower extremity edema07/11/2023 Assessment & Plan (12/08/2024 3:54 PM EDT): Will try increase of aldactone to 100mg Check labs Fu in 4 weeks Limit sodium Assessment & Plan (03/18/2024 3:46 PM EDT): [...] Labs 1 week prior to appt Tobacco user07/11/2023 Assessment & Plan (12/08/2024 7:00 AM EDT): The patient has been advised of the risks of continued smoking: stroke, MA, all forms of cancer, lung disease, and . Options for quitting smoking include: cold turkey, hypnosis, acupuncture, nicotine replacement meds(gum, lozenges, and patches), Buproprion, and Varenicline. At this time pt is encouraged to evaluate their goals for wanting to quit smoking, and reach out toprovider when ready to start this process Assessment & Plan (03/18/2024 7:11 AM EDT): The patient has been advised of the risks of continued smoking: stroke, MA, all forms of cancer, lung disease, and . Options for quitting smoking include: cold turkey, hypnosis, acupuncture, nicotine replacement meds(gum, lozenges, and patches), Buproprion, and Varenicline. At this time pt is encouraged to evaluate their goals for wanting to quit smoking, and reach out toprovider when ready to start this process Assessment & Plan (02/13/2024 3:34 PM EDT): Smokes about : 1/2 ppd The patient has been advised of the risks of continued smoking: stroke, MA, all forms of cancer, lung disease, and . Options for quitting smoking include: cold turkey, hypnosis, acupuncture, nicotine replacement meds(gum, lozenges, and patches), Buproprion, and Varenicline. At this time pt is encouraged to evaluate their goals for wanting to quit smoking, and reach out toprovider when ready to start this process Headache, uglnmehl28/15/2024 Assessment & Plan (12/08/2024 3:55 PM EDT): Will trial imitrex, reviewed instructions ? R/t GLORY Needs eye exam as well WILDE log Fu in 4 weeks Depression with payueox8807/11/2023 Overview (06/18/2024): HEMAL 7 score= PHQ 9 score= Assessment & Plan (12/08/2024 3:55 PM EDT): No current meds and feels is doing well Allergic uxeugvpi94/15/2024 Assessment & Plan (03/18/2024 3:47 PM EDT): Refilled meds Resolved Problems ProblemNoted DateDiagnosed DateResolved DateOther acute jfoykfwgu75/17/2025 12/08/2024Morbid (severe) obesity due to excess bpogjsod05 Morbid (severe) obesity due to excess povxgouf44bscess Assessment & Plan (10/03/2023 4:32 PM EDT): Finished atb, continued healing Assessment & Plan (09/19/2023 4:33 PM EDT): Cleansed, recommend cleaning with peroxide and water daily clean dressing applied Wound culture obtained, will change atb if needed Suspect this is a rufus. Cyst Fu in 2 weeks for recheck Dental lgwvpsqtt80utaneous Bilateral acute serous otitis media, recurrence not lzypibgcu48/15/2024 07/11/20238941Epwucuruzhs07 Family History Medical HistoryRelationNameCommentsCancerMotherDiabetesMotherRelationNameStatus CommentsMother Social History Tobacco UseTypesPacks/DayYears UsedDateSmoking Tobacco: Every DayCigarettes Smokeless Tobacco: Never Tobacco Cessation:Ready to Q uit: Not Asked; Counseling Given: Not Answered Alcohol UseStandard Drinks/WeekCommentsNever0 (1 standard drink = 0.6 oz pure alcohol)caffine: 1 cup of coffee daily, 1 energy drink dailyComments UnknownSex and Gender InformationValueDate RecordedSex Assigned at BirthNot on fileLegal HrsPgeirk75/15/2023 6:45 PM EDTGender IdentityNot on fileSexual OrientationNot on file Last Filed Vital Signs Vital SignReadingTime TakenCommentsBlood Jhebtebk626/8412/08/2024 3:28 PM EDT Wakgj952412/08/2024 2:52 PM AJZPbmlgrpjwky65.9 ??C (98.5 ??F)12/08/2024 2:52 PM EDTRespiratory Huqx349512/08/2024 2:52 PM EDTOxygen Hojjdmtuho25%12/08/2024 2:52 PM EDTInhaled Oxygen Concentration--Lmvncz054 kg (418 lb)12/08/2024 2:52 PM EDT Zzfubx472 cm (5' 3 )03/18/2024 3:26 PM EDTBody Mass Index74.0503/18/2024 3:26 PM EDT Plan of Treatment Not on file Insurance Care Teams Team MemberRelationshipSpecialtyStart DateEnd Date Alonzo Tipton MD PCP - GeneralFamily Gbgzirzm98/31/24 Niecy Molina NP Referring PhysicianNurse Practitioner12/12/22
--- OUTSIDE RECORDS SUMMARY | 2025-03-31 07:51 | XMS_ITS | CCD ---
Author Organization [facility] CliniSyct Care Team Providers Care Bat Person Name Role Phone LALITA JEROME Surgeon Unavailable LALITA JEROME Attending Unavailable LALITA JEROME Admitting Unavailable SD Procedure Practitioner Unavailab le AICHHOLZ, NIECY Referring Unavailable AICHHOLZ, NIECY Primary Care Unavailable KATE BRADY Surgeon Unavailable SD Procedure Practitioner Unavailab le AICHHOLZ, RECRUITING SPECIALIST NIECY Admitting Unavailable AICHHOLZ, RECRUITING SPECIALIST NIECY Attending Unavailable AICHHOLZ, RECRUITING SPECIALIST NIECY Consulting Unavailable AICHHOLZ, RECRUITING SPECIALIST NIECY Primary Care Unavailable AICHHOLZ, RECRUITING SPECIALIST NIECY Admitting Unavailable AICHHOLZ, RECRUITING SPECIALIST NIECY Attending Unavailable AICHHOLZ, RECRUITING SPECIALIST NIECY Consulting Unavailable AICHHOLZ, RECRUITING SPECIALIST NIECY Primary Care Unavailable AICHHOLZ, RECRUITING SPECIALIST NIECY Admitting Unavailable AICHHOLZ, RECRUITING SPECIALIST NIECY Attending Unavailable AICHHOLZ, RECRUITING SPECIALIST NIECY Consulting Unavailable AICHHOLZ, RECRUITING SPECIALIST NIECY Primary Care Unavailable DR SEE [place] Admitting Unavailable AICHHOLZ, RECRUITING SPECIALIST NIECY Primary Care Unavailable DR SEE [place] Attending Unavailable MEGHA, DR CUI Consulting Unavailable NYDIA, DR TAD Walls Attending Unavailable CHEPE AGUILA Consulting Unavailable DR TAD STAFFORD Admitting Unavailable AICHHOLZ, RECRUITING SPECIALIST NEICY Primary Care Unavailable CECILIO ALMARAZ Attending Unavailable CECILIO ALMARAZ Consulting Unavailable CECILIO ALMARAZ Admitting Unavailable AICHHOLZ, RECRUITING SPECIALIST NIECY Primary Care Unavailable Aichholz, Niecy J Primary Care Provider YAA Cespedes Emergency Provider Dung Cespedes Attending Unavailable Dung Cespedes Admitting Unavailable Aichholz, Niecy Alan Primary Care Unavailable Aichholz INDUSTRIAL TWISTING MACHINE OPERATOR, Niecy Unavailable Danuat BOSCH, Alonzo Primary Care Provider Unallocated Shelley BOSCH Provider Primary Care Provi clara Alonzo Tipton MD Primary Care Provider [phone] ISABELLA SZYMANSKI Attending Unavailable NIECY MOLINA Attending Unavailable NIECY MOLINA Attending Unavailable NIECY MOLINA Attending Unavailable BUBBA CONTRERAS Attending Unavailable BUBBA CONTRERAS Referring Unavailable Niecy Combs Primary Care Provider Niecy Combs Attending Provider Allergies Allergy ClassificationReported Allergen(s)Allergy TypeDate of OnsetReaction(s) FacilityPenicillins (antibiotic) (1 source)Penicillin; Translations: [PENICILLIN]Drug Rrtvska59-97-1148[facility] RepositorySulfamethoxazole / Trimethoprim (1 source)Sulfamethoxazole / Trimethoprim; Translations: [BACTRIM]Drug Allergy 87-39-6804[facility] Repository (3 sources)PenicillinsDrug allergy (disorder)91-11-5967Lgyytur ReactionSouthern [facility] Medical Center Repository (3 sources)Sulfamethoxazole; Translations: [sulfamethoxazole]Drug Allergy 46-46-9956KbxbrvidSumma Health [facility] (18 sources)Trimethoprim; Translations: [trimethoprim]Drug Mntvrwr56-81-6644YDTriHealth [facility] (1 source)PenicillinsDrug allergy (disorder)00-80-7395AfrhytbkqCommunity [facility] Center Repository (15 sources)PenicillinsPropensity to adverse keturnexi81-37-1984[facility] (15 sources)Sulfamethoxazole / TrimethoprimDrug Hcvcqsy10-78-3991EwnmlNMLG Healthcare Medications Current Medications MedicationDrug Class(es)DatesSig (Normalized)Sig (Original)predniSONE 20 mg oral tablet (2 sources)Start: 01-02-4345yddm 2 tablets by mouth once dailypredniSONE (Deltasone) 20 MG tablet Indications: Bronchitis Take 2 tabs orally by mouth once daily for 5 days. 10 tablet 05/11/2024 Activespironolactone 50 mg oral tablet (20 sources)Aldosterone AntagonistStart: 79-36-2082iiti 1 tablet by mouth once dailySpironolactone (Aldactone) 50 mg tablet Active 50 MG PO Daily February 09, 2025 12:00am Complies with drug therapyStart: 12-08-2024 End: 41-25-1025bxdd 1 tablet by mouth once dailySpironolactone (Aldactone) 100 mg tablet Discontinued 100 MG PO Daily February 07, 2025 12:00am February 09, 2025 2:49pmStart: 02-13-2024 End: 17-04-6639ojwz 1 tablet by mouth once dailyspironolactone (Aldactone) 50 MG tablet Indications: Lower extremity edema Take 1 tablet (50 mg) bymouth Daily 90 tablet 10/26/2024 12/08/2024 Discontinued (Reorder)SUMAtriptan 100 mg oral tablet (4 sources)Serotonin-1b and Serotonin-1d Receptor AgonistStart: 02-07-2025 End: 70-19-6481mpuv 1 tablet by mouth every two hours as needed for headache, then take 2 tablets by mouth two times weekly as needed for headacheSumatriptan Succinate (Imitrex) 100 mg tablet Active 100 MG PO .COMPLEX as needed for migraine headache February 09, 2025 2:49pm 1 at onset of migraine WILDE, may repeat in 2 hours if need. max 2 pills/24hours. no more than twice a week Complies with drug therapyStart: 42-45-0391KXRInslzjkd (Imitrex) 100 MG tablet Indications: Migraine without aura and without status migrainosus, not intractable 1 at the onset of migraine headache, repeat in 2 hours if needed. Max 2 pills in24 hours, no more than twice a week 9 tablet 12/08/2024 Active Completed/Discontinued Medications MedicationDrug Class(es)DatesSig (Normalized)Sig (Original)[id number] 200 actuat albuterol 0.09 mg/actuat metered dose inhaler (6 sources)beta2-Adrenergic AgonistStart: 05-11-2024 End: 36-05-3012nqcr 2 puff(s) by inhalation every six hours for wheezing albuterol HFA (Ventolin HFA) 90 mcg/act inhaler Indications: Bronchitis Inhale 2 puffs every 6 (six) hours if needed for wheezing or shortness of breath 8 g 05/11/2024 12/08/2024 Discontinued (Therapy completed)ARIPiprazole 10 mg oral tablet (2 sources)Atypical AntipsychoticStart: 10-16-2019 End: 59-72-6475lwzo 1 tablet by mouth once dailyAripiprazole (Abilify) 10 mg Tablet Discontinued 10 MG PO Daily October 16, 2019 12:00am September 12, 2023 11:19amazithromycin 40 mg/ml oral suspension (4 sources)Macrolide AntimicrobialStart: 08-10-2024 End: 04-13-1027fidiolaeguxn (Zithromax) 200 MG/5ML suspension Indications: Acute non-recurrent sinusitis of other sinus Day #1: 12.5ml, Day #2-#5: 6.25ml. 37.5 mL 08/10/2024 12/08/2024 Discontinued (Therapy completed)busPIRone hydrochloride 10 mg oral tablet (2 sources)Start: 10-16-2019 End: 32-10-6136lgnl 2 tablets by mouth twice dailyBuspirone 10 mg Tablet Discontinued 20 MG PO Twice daily October 16, 2019 12:00am September 12, 2023 11: 19amStart: 10-16-2019 End: 19-41-3464kzhv 20 mg by mouth twice dailyBuspirone Discontinued 20 MG PO Twice daily October 16, 2019 12:00am September 12, 2023 11:19amcephalexin 50 mg/ml oral suspension (2 sources)Cephalosporin AntibacterialStart: 09-12-2023 End: 68-96-3380xssz 500 mg by mouth four times dailyCephalexin 250 mg/5 mL suspension for reconstitution Discontinued 500 MG PO Four times daily 400 September 12, 2023 12:00am February 07, 2025 4:38pmcetirizine hydrochloride 10 mg oral tablet (19 sources)Histamine-1 Receptor AntagonistStart: 10-16-2019 End: 89-63-0447wjoy 1 tablet by mouth once dailyCetirizine (Zyrtec) 10 mg tablet Discontinued 10 MG PO Daily 14 October 16, 2019 12:00am September 12, 2023 11:20amDULoxetine 60 mg delayed release oral capsule (2 sources)Serotonin and Norepinephrine Reuptake InhibitorStart: 10-16-2019 End: 94-70-1798upmi 1 capsule by mouth once dailyDuloxetine 60 mg Capsule,Delayed Release(Dr/Ec) Discontinued 60 MG PO Daily October 16, 2019 12:00am September 12, 2023 11:20amescitalopram 10 mg oral tablet (20 sources)Serotonin Reuptake InhibitorStart: 10-03-2023 End: 11-09-9032yoqq 1 tablet by mouth once dailyescitalopram (Lexapro) 10 MG tablet Indications: Anxiety Take 1 tablet (10 mg) by mouth Daily 90 tablet 1 03/18/2024 12/08/2024 Discontinued (Therapy completed)fluticasone propionate 0.05 mg/actuat metered dose nasal spray (2 sources)CorticosteroidStart: 10-16-2019 End: 21-01-5766pxdb 1 spray(s) nasal route twice daily as needed for congestion Fluticasone Propionate (Flonase Allergy Relief) 50 mcg/actuation spray,suspension Discontinued 1 SPRAY INTRANASAL Twice daily as needed for nasal congestion 9.9 5 October 16, 2019 12:00am February 07, 2025 4:38pm administer into each nostrilfurosemide 40 mg oral tablet (3 sources)Loop Diuretic End: 94-29-2017wubc 1 tablet by mouth in the morningfurosemide (Lasix) 40 MG tablet Take 40 mg by mouth in the morning. 02/13/2024 Discontinued (Therapy completed)loratadine 10 mg oral tablet (2 sources)Start: 10-16-2019 End: 81-29-9988uzgo 1 tablet by mouth once dailyLoratadine (Claritin) 10 mg Tablet Discontinued 10 MG PO Daily October 16, 2019 12:00am September 12, 2023 11:20amtriamcinolone acetonide 0.055 mg/actuat metered dose nasal spray (12 sources)CorticosteroidStart: 03-18-2024 End: 37-60-1293rion 2 spray(s) nasal route once dailytriamcinolone (Nasacort) 55 MCG/ACT nasal inhaler Indications: Seasonal allergic rhinitis, unspecified trigger Administer 2 sprays into each nostril Daily 49.5 g 1 03/18/2024 05/11/2024 Discontinued (Therapy completed) End: 27-04-8546ycdi 2 spray(s) nasal route in the morningtriamcinolone (Nasacort) 55 MCG/ACT nasal inhaler Administer 2 sprays into each nostril in the morning. 03/18/2024 Discontinued (Reorder) Problems Active Problems Problem ClassificationProblemDateDocumented DateEpisodic/ChronicAnxiety disorders (20 sources)Mixed anxiety and depressive disorder; Translations: [Other specified anxiety disorders]Onset: 744472-49-2947LppchauGttvrn (1 source)Unspecified asthma, uncomplicated; Translations: [UNSPECIFIED ASTHMA UNCOMPLICATED]Onset: 22-16-6912TbisljpAkrgalt obstructive pulmonary disease and bronchiectasis (2 sources)Bronchitis; Translations: [Bronchitis, not specified as acute or chronic]37-00-2348RgsdejpuRfltctfk; convulsions (16 sources)Seizure; Translations: [Unspecified convulsions]Onset: 07-11-2023 53-35-2081TthkqmmkYbqvitqhc hypertension (20 sources)Essential hypertension; Translations: [Essential (primary) hypertension]Onset: 901123-29-4209TbaimnkTewfvxdlopsyl symptoms and ill- defined conditions (20 sources)Asymptomatic microscopic hematuria; Translations: [Asymptomatic microscopic hematuria]Onset: 174347-09-6675CzqvilceDbubujuo; including migraine (20 sources)Ophthalmic migraine; Translations: [Migraine with aura, not intractable, without status migrainosus]Onset: 439029-44-0023Jeurgas Comment on above:Problem List clean-up per request of Phys. EHR CmteMood disorders (1 source)Recurrent major depression; Translations: [Major depressive disorder, recurrent, unspecified]21-25-1850LuybygfGmbsx circulatory disease (2 sources)Elevated blood pressure; Translations: [Elevated blood-pressure reading, without diagnosis of hypertension]70-99-5698IiatdplbOmdljwl on above: Problem List clean-up per request of Phys. EHR CmteOther lower respiratory disease (2 sources)Cough; Translations: [Cough, unspecified type]01-00-3177CbkzrapfArbfj nutritional; endocrine; and metabolic disorders (1 source)Obesity, unspecified; Translations: [OBESITY UNSPECIFIED]Onset: 68-31-8177JezmobiNkudv nutritional; endocrine; and metabolic disorders (1 source)Body mass index (BMI) 50.0-59.9, adult; Translations: [BODY MASS INDEX BMI 50.0-59.9 ADULT]Onset: 19-46-1042IygjphaRcljk nutritional; endocrine; and metabolic disorders (20 sources)Severe obesity; Translations: [Class 3 severe obesity without serious comorbidity in adult]Onset: 500691-69-5898CuansukOocma nutritional; endocrine; and metabolic disorders (7 sources)Body mass index 40+ - severely obese; Translations: [Body mass index (BMI) 70 or greater, adult]Onset: 619871-70-2732RiohscfKikjz screening for suspected conditions (not mental disorders or infectious disease) (20 sources)Encounter for screening for malignant neoplasm of cervix; Translations: [Other specified abnormal findings of blood chemistry]Onset: 02-44-9664UefcprjyWjart upper respiratory disease (15 sources)Allergic rhinitis; Translations: [Allergic rhinitis, unspecified] Onset: 788515-57-9733XutdzwdSuvcv upper respiratory disease (2 sources)Seasonal allergic rhinitis; Translations: [Other seasonal allergic rhinitis]52-59-6882CzgrmpfZxkgw upper respiratory disease (2 sources)Nasal congestion; Translations: [Nasal congestion]52-96-9503Kjsqzpan Comment on above:Problem List clean-up per request of Phys. EHR CmteResidual codes; unclassified (15 sources)Obstructive sleep apnea of adult; Translations: [Obstructive sleep apnea (adult) (pediatric)]Onset: 073533-67-7263LrvdoywRocmaeka codes; unclassified (1 source)Obstructive sleep apnea syndrome; Translations: [Obstructive sleep apnea (adult) (pediatric)]03-30-3902MtdxdzfMwkctlbt codes; unclassified (20 sources)Edema of lower extremity; Translations: [Localized edema]Onset: 856981-18-2072DxxkmkavZxpcypub codes; unclassified (20 sources)Tobacco user; Translations: [Tobacco use]Onset: EpisodicSkin and subcutaneous tissue infections (18 sources)Abscess; Translations: [Cutaneous abscess, unspecified]Onset: 09-12-2023 Resolved: 596240-19-4459EwytkzqeKewfmaqry-fticmwu disorders (3 sources)Nicotine dependence, cigarettes, uncomplicated; Translations: [Nicotine dependence]Onset: 838652-46-1386KmolnqkPxafsxbdenqj (2 sources)COUGH, UNSPECIFIED; Translations: [COUGH, UNSPECIFIED]Onset: 07-53-6668Onleihrwiqns (3 sources)CONTACT W/AND (SUSP) EXPOS COVID-19; Translations: [CONTACT W/AND (SUSP) EXPOS COVID-19]Onset: 68-76-2309Hbreq infection (1 source)COVID-19; Translations: [COVID-19]Onset: 04-25-2022 Past or Other Problems Problem ClassificationProblemDateDocumented DateEpisodic/ChronicAcute and chronic tonsillitis (15 sources)Tonsillitis; Translations: [Acute tonsillitis, unspecified]Onset: 07-11-2023 Resolved: 909739-87-5842YvvrrnfzQkgamuqij of teeth and jaw (15 sources)Infection of tooth; Translations: [Periapical abscess without sinus] Onset: 07-11-2023 Resolved: 774339-81-3714KiinggtfDbfpknt (15 sources)Candidiasis of skin; Translations: [Candidiasis of skin and nail] Onset: 07-11-2023 Resolved: 269461-66-4820TinahvkzRggusc and vomiting (4 sources)Vomiting, unspecified; Translations: [Nausea]Onset: 12-29-2021 EpisodicOther nutritional; endocrine; and metabolic disorders (10 sources)Obesity caused by energy imbalance; Translations: [Morbid (severe) obesity due to excess calories]Onset: 06-18-2024 Resolved: 448208-42-8109TlmalqvBughx upper respiratory infections (6 sources)Acute sinusitis; Translations: [Other acute sinusitis]Onset: 08-10-2024 Resolved: 285339-92-6332DrywzdueCbrzrr media and related conditions (15 sources)Acute serous otitis media of bilateral ears; Translations: [Acute serous otitis media, bilateral]Onset: 07-11-2023 Resolved: 388816-95-6824KduqlmvxLhiuoolt codes; unclassified (4 sources)Localized edema; Translations: [LOCALIZED EDEMA]Onset: 05-17-2021 EpisodicUnclassified (1 source)COUGH, UNSPECIFIED; Translations: [COUGH, UNSPECIFIED]Onset: 25-04-4354Sdmhnmfznmvq (1 source)CONTACT W/AND (SUSP) EXPOS COVID-19; Translations: [CONTACT W/AND (SUSP) EXPOS COVID-19]Onset: 08-15-2021 Results Test NameValueInterpretationReference RangeFacilityLaboratory - Microbiology and Antimicrobial susceptibilityon 13-65-5805EJOP-CoV-2 (COVID-19) RNA ANDRES+probe Ql (Unsp spec)NegativeNegativeNOMS HealthcareNo Panel Informationon 05-11-2024 Interpretation and review of laboratory resultsNormalNOMS HealthcareNOMS HealthcareINFLUENZA ANegativeNegativeNOMS HealthcareINFLUENZA BNegativeNegative NOMS HealthcareInterpretation and review of laboratory resultsNormalNOMercy hospital springfieldNOMS HealthcareXR CHEST 2 VIEWSon 00-46-8576RW CHEST 2 VIEWSTITLE OF EXAM: XR CHEST 2 VIEWS REASON [...] though a component of infectious or inflammatory bronchitis/bronchiolitis is possible. A component of mild interstitial pulmonary edema is also a consideration. DICTATED ON: 05/11/2024 2:57 PM This report has been electronically signed and approved by the interpreting radiologist.NormalNot AvailableXR Chest 2 Viewson 84-37-7084FANHY OF EXAM: XR CHEST 2 VIEWS REASON [...] though a component of infectious or inflammatory bronchitis/bronchiolitis is possible. A component of mild interstitial pulmonary edema is also a consideration. DICTATED ON: 05/11/2024 2:57 PM This report has been electronically signed and approved by the interpreting radiologist. Scott Sandoval MD - 05/11/2024 TITLE OF EXAM: XR [...] though a component of infectious or inflammatory bronchitis/bronchiolitis is possible. A component of mild interstitial pulmonary edema is also a consideration. DICTATED ON: 05/11/2024 2:57 PM This report has been electronically signed and approved by the interpreting radiologist. NOMS HealthcareRadiology Study observation (narrative)NOMS HealthcareXR Chest 2 ViewsOrdered By: Scott Rainey on 19-75-7334[facility] Work Phone: all BASIC METABOLIC PANELon 19-46-6830Rvoec gap [Moles/Vol]9.9 mmol/LNOMS HealthcareCalcium [Mass/Vol]8.9 mg/dL8.5 - 10.1 mg/dL NOMS HealthcareChloride [Moles/Vol]101 mmol/L98 - 107 mmol/LNOMS HealthcareCO2 [Moles/Vol]29.7 mmol/L21.0 - 32.0 mmol/LNOMS HealthcareCreatinine [Mass/Vol]0.76 mg/dL0.55 - 1.02 mg/dLNOMS HealthcareGFR/1.73 sq M.predicted CKD-EPI (S/P/Bld) [Vol rate/Area]>60>=60 mL/min/1.73m 2NOMS HealthcareGlucose [Mass/Vol]106 mg/dL 74 - 106 mg/dLNOMS HealthcarePotassium [Moles/Vol]4.6 mmol/L3.5 - 5.1 mmol/LNOMS HealthcareSodium [Moles/Vol]136 mmol/L136 - 145 mmol/LNOMS HealthcareTBH EGFR- NON AF [place]>60>=60 mL/min/1.73m 2NOMS HealthcareUrea nitrogen [Mass/Vol]8.0 mg/dL7.0 - 18.0 mg/dLNOMS HealthcareUrea nitrogen/Creatinine [Mass ratio]10.5 mg/mgNOMS HealthcareCLINISYNCNOMS HealthcareCovid-19 PCR ([facility])on 04-22-2022 SARS-CoV-2 (COVID-19) RNA ANDRES+probe Ql (Unsp spec)DetectedCritically abnormalNOT DETECTEDThe [facility] on above:Result Comment: This test is not yet approved or cleared by the [place] FDA. When there are no FDA-approved or cleared tests available, and other criteria are met, FDA can make tests available under an emergency access mechanism called an Emergency Use Authorization (EUA). The EUA for this test is supported by the [employer] of Health and Human Service's declaration that circumstances exist to justify the emergency use of in vitro diagnostics for the detection and/or diagnosis of the virusthat causes COVID-19. This EUA will remain in effect for the duration of the COVID-19 declaration justifying emergency of IVDs, unless it is terminated or revoked by the FDA (after which the test mayno longer be used).Performed By: #### CVDTBH #### [facility] [address] [place] [address] Dr. Ronnie FritzNZA A AND B AGon 60-39-3995TMJBEAMLCCGULOhioHealth Shelby Hospital on above:Result Comment: Negative for Flu A protein angiten. Infection due to Flu A cannot be ruled out. FluA angiten in the sample may be below the detection limit of the test.Performed By: #### INFLUAB #### [facility] [address] [place] [address] Dr. Ronnie WolfINFLUBNEGOhioHealth Shelby Hospital on above: Result Comment: Negative for Flu B protein antigen. Infection due to Flu B cannot be ruled out. FluB antigen in the sample may be below the detection limit of the test.Performed By: #### INFLUAB #### [facility] [address] [place] [address] Dr. Ronnie Salinas AGNegativeNormalNEGATIVE SEE COMMENTThe [facility] on above:Performed By: #### INFLUAB #### [facility] [address] [place] [address] Dr. Ronnie Pittman AGNegativeNormalNEGATIVE SEE COMMENTThe [facility]burgComment on above:Performed By: #### INFLUAB #### [facility] [address] [place] [address] Dr. Ronnie WolfINTERNAL CONTROLSWithin Normal LimitsNormalWithin Normal Limits The [facility]burgCommclaren port [facility] on above:Performed By: #### INFLUAB #### [facility] [address] [place] [address] Dr. Ronnie Mustafa ACOG PANEL 2: 21 to 29on 10-17-2021..NormalThe [facility]burgCommclaren port huron hospital on above:Result Comment: Performed at: BAPerformed By: #### [id number] #### [facility] [address] [place] [address] Dr. Ronnie Gann Gdln ACOG Rdtybkh73-64EmgwsqWseHenry County Hospital on above:Performed By: #### [id number] #### [facility] [address] [place] [address] Dr. Ronnie WolfDIAGNOSIS:CommentNoHenry County Hospital on above: Result Comment: NEGATIVE FOR INTRAEPITHELIAL LESION OR MALIGNANCY. Performed at: BAPerformed By: #### [id number] #### [facility] [address] [place] [address] Dr. Ronnie WolfMethodology:CommentNormAdena Health System on above: Result Comment: This liquid based ThinPrep(R) pap test was screened with the use of an image guided system. Performed at: WBPerformed By: #### [id number] #### [facility] [address] [place] [address] Dr. Ronnie WolfNote:CommentNoPremier Health Miami Valley HospitalCommclaren port [facility] hospital on above:Result Comment: The Pap smear is a screening test designed to aid in the detection of premalignant and malignant conditions of the uterine cervix. It is not a diagnostic procedure and should not be used as the sole means of detecting cervical cancer. Both false-positive and false-negative reports do occur. . Performed at: [facility] Centerformed By: #### [id number] #### [facility] [address] [place] [address] Dr. Ronnie WolfPerformed by:CommentOhio State Harding Hospital on above: Result Comment: Ning Mcconnell Process Improvement Specialist (ASCP) Performed at: Bannerformed By: #### [id number] #### [facility] [address] [place] [address] Dr. Ronnie WolfReflex Criteria:CommentOhio State Harding Hospital on above:Result Comment: The HPV DNA reflex criteria were not met with this specimen result therefore, no HPV testing was performed. . Performed at: [facility] By: #### [id number] #### [facility] [address] [place] [address] Dr. Ronnie WolfSpecimen adequacy:CommentOhio State Harding Hospital on above:Result Comment: Satisfactory for evaluation. Endocervical and/or squamous metaplastic cells (endocervical component) are present. Performed at: [facility] By: #### [id number] #### [facility] [address] [place] [address] Dr. Ronnie WolfCovid-19 PCR ([facility])on 86-13-6523LMYW-CoV-2 (COVID-19) RNA ANDRES+probe Ql (Unsp spec)Not detectedNormalNOT DETECTEDThe [facility] Comment on above:Result Comment: When diagnostic testing is negative, the [...] for this test is supported by the [place] of Health and Human Service's declaration that circumstances exist to justify the emergency use of in vitro diagnostics for the detection and/or diagnosis of the virus that causes COVID-19. This EUA will remain in effect for the duration of the COVID-19 declaration justifying emergency of IVDs, unless it is terminated or revoked by the FDA (after which the test may no longer be used).Performed By: #### CVDTBH #### [facility] [address] [place] [address] Dr. Ronnie WolfCovid-19 PCR ([facility])on 90-31-7183QVPS-CoV-2 (COVID-19) RNA ANDRES+probe Ql (Unsp spec)DetectedCritically abnormalNOT DETECTEDThe [facility]burgComment on above:Result Comment: This test is not yet approved or cleared by the [place] FDA. When there are no FDA-approved or cleared tests available, and other criteria are met, FDA can make tests available under an emergency access mechanism called an Emergency Use Authorization (EUA). The EUA for this test is supported by the Payroll Processor of Health and Human Service's (HHS's) declaration [...] no longer be used). Performed By: #### CVDTBH #### [facility] [address] [place] [address] Dr. Ronnie Swan AUTO DIFFon 76-13-7794BQPB #0.1 103/ulNormal0.0-0.1The [facility]Comment on above:Performed By: #### CBC #### [facility] [address] [place] [address] Dr. Ronnie WolfBasophils/100 WBC (Bld)0.7 %Normal0.2-2.0The [facility] Comment on above:Performed By: #### CBC #### [facility] [address] [place] [address] Dr. Ronnie Posadas #0.5 103/ulNormal0.0-0.7The [facility]burgComment on above: Performed By: #### CBC #### [facility] [address] [place] [address] Dr. Ronnie Simmsosinophils/100 WBC (Bld)3.8 %Normal0.9-7.0[facility] Comment on above:Performed By: #### CBC #### [facility] [address] [place] [address] Dr. Ronnie Simmsrythrocyte distribution width (RBC) [Ratio]13.9 %Abifas78.0-15.0 The [facility] on above:Performed By: #### CBC #### [facility] [address] [place] [address] Dr. Ronnie WolfHematocrit (Bld) [Volume fraction]43.1 %Onstpt90.0-48.0The [facility]burgComment on above:Performed By: #### CBC #### [facility] [address] [place] [address] Dr. Ronnie WolfHemoglobin (Bld) [Mass/Vol]13.4 g/rMXgqtqw39.0-16.0The [facility]Comment on above:Performed By: #### CBC #### [facility] [address] [place] [address] Dr. Ronnie Desouza #0.04 10e3/ulCritically high0.00-0.03[facility] Comment on above:Performed By: #### CBC #### [facility] [address] [place] [address] Dr. Ronnie Desouza %0.3 %Normal0.0-0.5The [facility] on above: Performed By: #### CBC #### [facility] [address] [place] [address] Dr. Ronnie Rosario #4.5 103/ulCritically high1.2-3.8The [facility] Comment on above:Performed By: #### CBC #### [facility] [address] [place] [address] Dr. Ronnie Jamesmphocytes/100 WBC (Bld)37.6 %Lhscbu69.5-60.0The [facility]Comment on above:Performed By: #### CBC #### [facility] [address] [place] [address] Dr. Ronnie SahniUAL DIFF REQNONormalThe [facility]burgComment on above: Performed By: #### CBC #### [facility] [address] [place] [address] Dr. Ronnie Franklin (RBC) [Entitic mass]27.1 ooHecxtz58.7-34.0The [facility]burgComment on above:Performed By: #### CBC #### [facility] [address] [place] [address] Dr. Ronnie Franklin (RBC) [Mass/Vol]31.1 g/qOJpxwbt20.9-35.2The [facility]burgComment on above:Performed By: #### CBC #### [facility] [address] [place] [address] Dr. Ronnie Franklin (RBC) [Entitic vol]87.1 gGLhylen76.0-99.0The [facility]burgComment on above:Performed By: #### CBC #### [facility] [address] [place] [address] Dr. Ronnie Sullivan #0.7 103/ulNormal0.3-0.8The [facility] on above:Performed By: #### CBC #### [facility] [address] [place] [address] Dr. Ronnie Brownocytes/100 WBC (Bld)5.5 %Normal1.7-12.0The [facility] Comment on above:Performed By: #### CBC #### [facility] [address] [place] [address] Dr. Ronnie Mohr #6.3 103/ulNormal1.4-6.5The [facility] on above:Performed By: #### CBC #### [facility] [address] [address] [address] Ronnie Manningutrophils/100 WBC (Bld)52.1 %Doslln97.0-75.0The [facility] on above:Performed By: #### CBC #### [facility] [address] [place] [address] Dr. Ronnie WolfPlatelet mean volume (Bld) [Entitic vol]10.2 fLNormal9.5-13.5The [facility]Comment on above:Performed By: #### CBC #### [facility] [address] [place] [address] Dr. Ronnie WolfPLT313 103/yqSqvfhz880-630Zys [facility] on above: Performed By: #### CBC #### [facility] [address] [place] [address] Dr. Ronnie WolfRBC4.95 106/ulNormal4.20-5.40The [facility] on above:Performed By: #### CBC #### [facility] [address] [place] [address] Dr. Ronnie WolfWBC12.0 103/ulCritically high4.0-11.0The [facility] on above:Performed By: #### CBC #### [facility] [address] [place] [address] Dr. Ronnie WolfFRLISA T4on 77-55-6036Vzte T4 [Mass/Vol]0.92 ng/dLNormal0.78-2.19 The [facility] on above:Performed By: #### FT4 #### [facility] [address] [place] [address] Dr. Ronnie WolfPROF 14(COMP METB)on 87-06-5358Kfwdvlr [Mass/Vol]3.2 g/dL Critically low3.5-5.0The [facility] on above:Performed By: #### CMP, TSH #### [facility] [address] [place] [address] Dr. Ronnie WolfAlbumin/Globulin [Mass ratio]0.7 {ratio}NormalThe [facility] HospitalComment on above:Performed By: #### CMP, TSH #### [facility] [address] [address] [address] Ronnie Kent [Catalytic activity/Vol]66 U/HQuycrz34-116Ikk [facility]Comment on above:Performed By: #### CMP, TSH #### [facility] [address] [address] [address] Ronnie Alexis [Catalytic activity/Vol]32 U/LNormal9-52[facility] Comment on above:Performed By: #### CMP, TSH #### [facility] [address] [address] [address] Ronnie Barry gap [Moles/Vol]11.8 mmol/LNormalThe [facility] Comment on above:Performed By: #### CMP, TSH #### [facility] [address] [address] [address] Ronnie WolfAST [Catalytic activity/Vol]17 U/DWrwqmo30-10Fhb [facility]Comment on above:Performed By: #### CMP, TSH #### [facility] [address] [address] [address] Ronnie WolfBilirubin [Mass/Vol]0.2 mg/dLNormal0.2-1.3TFayette [facility] Comment on above:Performed By: #### CMP, TSH #### [facility] [address] [address] [address] Ronnie WolfCalcium [Mass/Vol]8.7 mg/dLNormal8.4-10.2[facility] Comment on above:Performed By: #### CMP, TSH #### [facility] [address] [address] [address] Ronnie WolfChloride [Moles/Vol]103 mmol/RDmshek33-919JxySouthern [facility] Comment on above:Performed By: #### CMP, TSH #### [facility] [address] [address] [address] Ronnie WolfCO2 [Moles/Vol]28.9 mmol/PVlfxvq73.0-30.0The [facility] Comment on above:Performed By: #### CMP, TSH #### [facility] [address] [address] [address] Ronnie WolfCreatinine [Mass/Vol]0.61 mg/dLNormal0.52-1.04[facility] CenterComment on above:Performed By: #### CMP, TSH #### [facility] [address] [address] [address] Ronnie Phoenix-AF AUSTRALIAN>60Normal>=60The [facility]Comment on above:Performed By: #### CMP, TSH #### [facility] [address] [address] [address] Ronnie Phoenix-NON AF AUSTRALIAN>60Normal>=60The [facility]Comment on above:Performed By: #### CMP, TSH #### [facility] [address] [address] [address] Ronnie WolfGlobulin (S) [Mass/Vol]4.3 g/dLNormalThe [facility]Comment on above:Performed By: #### CMP, TSH #### [facility] [address] [address] [address] Ronnie WolfGlucose [Mass/Vol]112 mg/dLCritically shzy63-381BjrOhioHealth Dublin Methodist Hospitalment on above:Performed By: #### CMP, TSH #### [facility] [address] [address] [address] Ronnie WolfPotassium [Moles/Vol]4.7 mmol/LNormal3.4-5.0The [facility] Comment on above:Performed By: #### CMP, TSH #### [facility] [address] [address] [address] Ronnie WolfProtein [Mass/Vol]7.5 g/dLNormal6.1-8.2The [facility] Comment on above:Performed By: #### CMP, TSH #### [facility] [address] [address] [address] Ronnie WolfSodium [Moles/Vol]139 mmol/LYsjthe100-223YxjSouthern [facility] Comment on above:Performed By: #### CMP, TSH #### [facility] [address] [place] [address] Dr. Ronnie Luis nitrogen [Mass/Vol]10.0 mg/dLNormal7.0-17.0[facility] CenterComment on above:Performed By: #### CMP, TSH #### [facility] [address] [place] [address] Dr. Ronnie Luis nitrogen/Creatinine [Mass ratio]16.4 mg/mgNoPremier Health Miami Valley HospitalComment on above:Performed By: #### CMP, TSH #### [facility] [address] [place] [address] Dr. Ronnie Lawson 10-39-8916HKL3.995 uIU/mLNormal0.470-4.680[facility] CenterComment on above:Performed By: #### CMP, TSH #### [facility] [address] [place] [address] Dr. Ronnie Pacheco [facility] HospitalComment on above: Result Comment: <0.34 UIU/ml HYPERTHYROID 0.34-5.60 UIU/ml EUTHYROID >5.60 UIU/ml HYPOTHYROIDPerformed By: #### CMP, TSH #### [facility] [address] [place] [address] Dr. Ronnie WolfOperative Reporton [id number] ReportMR#: [id number] [facility] Pt. Name: Faby Mcconnell Room #: 0C Discharge 09/23/2020 Date: Birthdate: 1990 OPERATIVE REPORT DATE OF SURGERY: 09/23/2020 SURGEON: Lalita Jerome M.D. SALES FINANCIAL ANALYST: Jose Carlos Meraz M.D. PREOPERATIVE DIAGNOSIS: Biliary [...] for the entire procedure. Date Dict: 09/23/2020/09:30 A/Jose Carlos Meraz MD Date Trans: 09/23/2020 08:38 P/adeola DN_JN:[id number] [facility] HospitalPO GLU[facility]SE LAB on 23-22-0457Witzlsx [Mass/Vol]78 mg/nBJgpaof03-134Mun [facility] HospitalComment on above:Performed By: #### [id number] #### [facility] [address] [place] [address], [place]APOC URINE PREGNANCYon 68-46-6164Yacu HCG ( test) Ql (U)NegativeNormalNEGATIVEThe [facility] HospitalComment on above:Result Comment: Performed in PACUPerformed By: #### [id number] #### [facility] [address] [address], USABASIC METABOLIC PANELon 21-56-3252Javiufh [Mass/Vol]9.2 mg/dLNormal8.6-10.3The [facility] HospitalComment on above: Performed By: #### [id number] #### [facility] [address] [address], USAChloride [Moles/Vol]102 mmol/QZgdiqf00-802Exx [facility] HospitalComment on above:Performed By: #### 80300 #### [facility] [address] [address], USACO2 [Moles/Vol]32 mmol/VOsdd76-30Hiw [facility] HospitalComment on above:Performed By: #### [id number] #### [facility] [address] [address], USACreatinine [Mass/Vol]0.73 mg/dLNormal0.60-1.20The [facility] HospitalComment on above:Performed By: #### [id number] #### [facility] [address] [place] [address], USAGFR/1.73 sq M.predicted among blacks MDRD (S/P/Bld) [Vol rate/Area]mL/min/{1.73_m2}Normal>60The [facility] Comment on above:Performed By: #### [id number] #### [facility] [address] [place] [address], USAGFR/1.73 sq M.predicted among non-blacks MDRD (S/P/Bld) [Vol rate/Area]mL/min/{1.73_m2}Normal>60The [facility] Comment on above:Performed By: #### 13396 #### [facility] [address] [place] [address], USAGlucose [Mass/Vol]96 mg/yXExrwpr03-378Sfj [facility] HospitalComment on above:Performed By: #### 29591 #### [facility] [address] [place] [address], USAPotassium [Moles/Vol]4.3 mmol/LNormal3.5-5.1The [facility] HospitalComment on above:Performed By: #### 22470 #### [facility] [address] [place] [address], USASodium [Moles/Vol]139 mmol/MJhgpcr044-933Huc [facility] HospitalComment on above:Performed By: #### 09231 #### [facility] [address] [place] [address], USAUrea nitrogen [Mass/Vol]11 mg/dLNormal7-25The [facility] HospitalComment on above:Performed By: #### 06289 #### [facility] [address] [place] [address], USACBC COMPLETE BLOOD COUNTon 78-28-8380Ifitxwcrpkl distribution width (RBC) [Ratio]13.4 %Oonbko47.5-15.0The [facility] HospitalComment on above:Performed By: #### [id number] #### [facility] [address] [place] [address], USAHematocrit (Bld) [Volume fraction]39.6 %Vmkkah33.0-45.0The [facility] HospitalComment on above:Performed By: #### 87566 #### [facility] [address] [place] [address], [facility] CENTERHemoglobin (Bld) [Mass/Vol]13.0 g/aPKmttda88.0-15.0The [facility] HospitalComment on above:Performed By: #### 97910 #### [facility] [address] [place] [address], [facility] CENTERMCH (RBC) [Entitic mass]27.8 dtOhmjnr69.0-33.0The [facility] HospitalComment on above:Performed By: #### 70702 #### [facility] [address] [place] [address], [facility] CENTERMCHC (RBC) [Mass/Vol]32.8 g/oTZaxdyh38.0-35.0The [facility] HospitalComment on above:Performed By: #### 14852 #### [facility] [address] [address], [facility] CENTERMCV (RBC) [Entitic vol]84.8 kBPngytt35.0-98.0The [facility] HospitalComment on above:Performed By: #### 20565 #### [facility] [address] [place] [address], USANucleated RBC/100 WBC (Bld) [Ratio]0 %Normal0-0The [facility] HospitalComment on above:Performed By: #### 84477 #### [facility] [address] [address], USAPLAT AYY733 10*3/fTHjllgq899-754Qng [facility] HospitalComment on above:Performed By: #### 68940 #### [facility] [address] [place] [address], USARBC (Bld) [#/Vol]4.67 10*6/uLNormal3.80-5.00The [facility] HospitalComment on above:Performed By: #### 52055 #### [facility] [address] [place] [address], USAWBC (Bld) [#/Vol]11.86 10*3/uLHigh4.00-10.60The [facility] HospitalComment on above:Performed By: #### 70072 #### [facility] [address] [place] [address], USAPROTHROMBIN TIMEon 35-99-2981FZM Coag (PPP) [Relative time] 0.97 {INR}Normal0.91-1.16The [facility] HospitalComment on above:Result Comment: [facility] RECOMMENDED INR FOR WARFARIN THERAPY ------- CONDITION INR PROPHYLAXIS OF VENOUS THROMBOSIS 2-3 (HIGH-RISK SURGERY) TREATMENT OF VENOUS THROMBOSIS 2-3 TREATMENT OF PULMONARY EMBOLISM 2-3 PREVENTION OF SYSTEMIC EMBOLISM: 2-3 ACUTE MYOCARDIAL INFARCTION TISSUE HEART VALVES VALVULAR HEART DISEASE ATRIAL FIBRILLATION RECURRENT SYSTEMIC EMBOLISM MECHANICAL HEART VALVE 2.5-3.5 FROM: ORAL ANTICOAGULANTS. MECHANISM OF ACTION, CLINICAL EFFECTIVENESS, AND OPTIMAL THERAPEUTIC RANGE. CHEST 1995;108:231S-246S.Performed By: #### 43053 #### [facility] [address] [address], USAPT Coag (PPP) [Time]12.9 kXnoxbv49.3-14.8The [facility] HospitalComment on above:Result Comment: ALL RESULTS MUST BE INTERPRETED WITH RESPECT TO BLOOD DRAWING ARTIFACT OR DILUTION ERROR OF ANTICOAGULANT AT THE TIME OF SAMPLING.Performed By: #### 82704 #### [facility] [place] [address], USALab Reportson 21-50-6893Zcm Reports [id number]#1.00CD:127NoOhioHealth Riverside Methodist HospitalAmbulatory Clinical Summaryon 96-10-5669Jecaupfyds Clinical Summary {[id number]-[id number]-84-37-c0-6d}CD:[id number] Riverside Methodist HospitalGeneral Surgery Office/Clinic Noteon 55-22-8100Ykgojox Surgery Office/Clinic NoteChief Complaint Epigastric pain HPI Staff 30 year [...] ED for epigastric pain and cholelithiasis; seen inED 3 days ago; elevated transaminases, normal wbc [...] GB US in ED, personally reviewed, with multiplestones within gallbladder, no wall thickening, no ductal [...] swallowing difficulties, no hearing loss, no ear infection(s),no nose bleeds. Cardiovascular: normal blood pressure, no [...] abnormal; [facility] [place] due to patient being high risk for surgical intervention due to BMI over 60 and tobacco use. patient to maintain low fat diet; return to ED if worsening pain or persistent nausea/vomiting; off work until further workup or surgery. Ordered: ondansetron, 4 mg = 1 tab(s), Oral, q6hr, PRN Nausea, # 15 tab(s), Refills(s) 0, Pharmacy: [facility], 160, cm, 09/02/20 10:50:00 EDT, Height/Length Dosing, 156, kg, 09/02/20 10:50:00 EDT,Weight Dosing Amylase Level [facility] [place] Hepatic Function Panel Lipase [...] Nausea, # 15 tab(s), Refills(s) 0, Pharmacy: [facility], 160, cm, 09/02/20 10:50:00 EDT, Height/Length Dosing, 156, kg, 09/02/20 10:50:00 EDT,Weight Dosing Amylase Level [facility] [place] Hepatic Function Panel Lipase Level 4. Nausea (R11.0: Nausea) see # 1 5. BMI 60.0-69.9, adult (Z68.44: Body mass index [BMI] 60.0-69.9, adult) see # 1; recommend diet and exercise. Ordered: ondansetron, 4 mg = 1 tab(s), Oral, q6hr, PRN Nausea, # 15 tab(s), Refills(s) 0, Pharmacy: [facility], 160, cm, 09/02/20 10:50:00 EDT, Height/Length Dosing, 156, kg, 09/02/20 10:50:00 EDT,Weight Dosing Amylase Level Current tobacco smoker 1034F [facility] [place] Hepatic Function Panel Lipase [...] Nausea, # 15 tab(s), Refills(s) 0, Pharmacy: [facility], 160, cm, 09/02/20 10:50:00 EDT, Height/Length Dosing, 156, kg, 09/02/20 10:50:00 EDT,Weight Dosing Amylase Level Current tobacco smoker 1034F [facility] [place] Ref[place] Hepatic Function Panel Lipase [...] change: No., 09/02/2020 Family History Cervical cancer: Mother.[facility] Methodist HospitalComment on above:Result Comment: Electronically Signed By: IRINA BOSCH, Ferny Walls\.br\Date and Time Signed: 09/02/20 12:20 EDTProvider Letteron [id number] Letter September 02, 2020 FABY MCCONNELL [address] [address] FABY MCCONNELL 1990 To Whom It May Concern, Please excuse above patient from work. Date of Illness: From: 09/02/2020 To: until seen by specialist Dr Jerome May Return to Work On: after evaluated by Dr Jerome will be up to him Comments: referral has been made to Dr Jerome waiting on appointment to be scheduled. Sincerely, Dr Ferny AyersMcCullough-Hyde Memorial HospitalConsultation Noteon 09-01-2020 Consultation [id number]#1.00CD:127[facility] CenterED Note-Physicianon 04-48-2671RZ Note-Physician [id number]#1.00CD:127[facility] CenterED Note-[id number]#1.00CD:[address] [place], [place] [address]Comment on above:Other Comment: MISSING PAGES CRR Vital Signs Date TimeVital SignValuePerforming XimdsfbzcUregejso90-22-5351 14:30-0400Body jfzijk137.02 Blessing Molina INDUSTRIAL TWISTING MACHINE OPERATOR-C Work Phone: [facility]09-16-2025 14:30-0400 Body mass index (BMI) [Ratio]73.3 kg/m2Niecy Molina INDUSTRIAL TWISTING MACHINE OPERATOR-C Work Phone: [facility]09-16-2025 14:30-0400 Body hwajdqxonib93.5 [degF]Niecy Molina INDUSTRIAL TWISTING MACHINE OPERATOR-C Work Phone: [facility]09-16-2025 14:30-0400 Body nquscd677.78 kgLisa Aichholz INDUSTRIAL TWISTING MACHINE OPERATOR-C Work Phone: [facility]09-16-2025 14:30-0400 Diastolic blood brvousrv15 mm[Hg]Niecy Aichholz INDUSTRIAL TWISTING MACHINE OPERATOR-C Work Phone: [phone]09-16-2025 14:30-0400 Heart rate96 /minLisa Aichholz INDUSTRIAL TWISTING MACHINE OPERATOR-C Work Phone: [phone] [place], [place] [address]209-16-2025 14:30-0400 Respiratory rate20 /minLisa Aichholz INDUSTRIAL TWISTING MACHINE OPERATOR-C Work Phone: [phone] [place], [place] [address]209-16-2025 14:30-0400 SaO2% (BldA) [Mass fraction]96 %Niecy Aichholz INDUSTRIAL TWISTING MACHINE OPERATOR-C Work Phone: [phone]09-16-2025 14:30-0400 Systolic blood tpwxmaau520 mm[Hg]Niecy Aichholz INDUSTRIAL TWISTING MACHINE OPERATOR-C Work Phone: [phone]07-15-2025 15:28-0400 Diastolic blood pqhermzo14 mm[Hg]Niecy Aichholz INDUSTRIAL TWISTING MACHINE OPERATOR Work Phone: [facility] HospitalQfzrnojumm40-82-6890 15:28-0400Systolic blood ebeyzpkz349 mm[Hg]Niecy Aichholz INDUSTRIAL TWISTING MACHINE OPERATOR Work Phone: [facility] HospitalHuqkytwipf66-26-4606 14:52-0400Body mass index (BMI) [Ratio]74.05 kg/m2Lisa Aichholz INDUSTRIAL TWISTING MACHINE OPERATOR Work Phone: [facility] HospitalNhpegcnmln66-69-8189 14:52-0400Body temperature 98.49 [degF]Niecy Aichholz INDUSTRIAL TWISTING MACHINE OPERATOR Work Phone: [facility] HospitalLmginghfqw98-09-5227 14:52-0400Body dbdmug865.6 kgLisa Aichholz INDUSTRIAL TWISTING MACHINE OPERATOR Work Phone: [facility] HospitalEqhozqjojd45-31-7793 14:52-0400Heart rate93 /min Niecy Aichholz INDUSTRIAL TWISTING MACHINE OPERATOR Work Phone: noMer[facility] hospital springfieldRpsjupbpmk36-69-8564 14:52-0400Respiratory rate20 /minNiecy Molina INDUSTRIAL TWISTING MACHINE OPERATOR Work Phone: noMercy hospital springfieldNvxlasdtfy56-06-6881 14:52-8024ZyK5% (BldA) [Mass fraction]96 %Niecy Molina INDUSTRIAL TWISTING MACHINE OPERATOR Work Phone: [facility] HospitalDyopmrewjx98-26-4713 14:33-0500Body mass index (BMI) [Ratio]72.76 kg/v6Vxjedl Workman PA Work Phone: noMercy hospital springfieldZkhtkztrbx13-22-7564 14:33-0500Body temperature 98.1 [degF]Summer Workman PA Work Phone: noMercy hospital springfieldEttkzgmmyp45-19-2964 14:33-0500Body iwzpfd091.3 kgSuvegas valley rehabilitation hospital Workman PA Work Phone: [facility] HospitalZrmdqyzsdi31-64-0752 14:33-0500Diastolic blood vzdviwrj39 mm[Hg]Summer Workman PA Work Phone: noMercy hospital springfieldAjqboyoipw68-10-4394 14:33-0500Heart coyd759 /min Summer Workman PA Work Phone: noMercy hospital springfieldCeuzdhylyp19-99-6752 14:33-8851QcO3% (BldA) [Mass fraction]99 %Summer Workman PA Work Phone: [facility] HospitalEtrmrutnqm31-15-0827 14:33-0500Systolic blood rsawobzm846 mm[Hg]Summer Workman PA Work Phone: noMercy hospital springfieldTfktrkzhro65-34-0484 15:26-0400Body aiddkg096 cm Niecy Molina INDUSTRIAL TWISTING MACHINE OPERATOR Work Phone: noMercy hospital springfieldMlgijyvkjw36-33-9577 15:26-0400Body mass index (BMI) [Ratio]71.92 kg/m2Niecy Molina INDUSTRIAL TWISTING MACHINE OPERATOR Work Phone: noMercy hospital springfieldWhsssrwnit62-67-4590 15:26-0400Body temperature 98.71 [degF]Niecy Dexterz INDUSTRIAL TWISTING MACHINE OPERATOR Work Phone: [facility] HospitalGssgjtqvgf42-71-2346 15:26-0400Body vcabaj285.16 kgLisa Dexterz INDUSTRIAL TWISTING MACHINE OPERATOR Work Phone: [place] [address]Flqcziosre29-43-6021 15:26-0400Diastolic blood mm[Hg]Niecy Olvinholz INDUSTRIAL TWISTING MACHINE OPERATOR Work Phone: [facility] HospitalBxwwojphoq07-58-2859 15:26-0400Heart rate94 /min Niecy Evangelistz INDUSTRIAL TWISTING MACHINE OPERATOR Work Phone: [place] [address]Fqzzwoyekn81-82-0083 15:26-0400Respiratory rate18 /minLisa Bahholz INDUSTRIAL TWISTING MACHINE OPERATOR Work Phone: [place] [address]Jctlrskbci21-75-3706 15:26-1016YiP0% (BldA) [Mass fraction]97 %Niecy Evangelistz INDUSTRIAL TWISTING MACHINE OPERATOR Work Phone: [place] [address]Azgysdoptv98-59-3855 15:26-0400Systolic blood mm[Hg]Niecy Evangelistz INDUSTRIAL TWISTING MACHINE OPERATOR Work Phone: [facility] HospitalWucqspjfts55-00-7784 15:02-0400Body cm Niecy Dexterz INDUSTRIAL TWISTING MACHINE OPERATOR Work Phone: [facility] HospitalYkmsjmjqcl02-46-5662 15:02-0400Body mass index (BMI) [Ratio]72.24 kg/m2Niecy Bahholz INDUSTRIAL TWISTING MACHINE OPERATOR Work Phone: [facility] HospitalUmphbfhzqb98-58-4579 15:02-0400Body temperature 98.71 [degF]Niecy Olvinholz INDUSTRIAL TWISTING MACHINE OPERATOR Work Phone: [facility] HospitalVuaapzpkzv29-95-6109 15:02-0400Body ehqqfm492.98 kgLisa Dexterz INDUSTRIAL TWISTING MACHINE OPERATOR Work Phone: [place] [phone] 15:02-0400Diastolic blood mqnualat78 mm[Hg]Niecy Olvinholz INDUSTRIAL TWISTING MACHINE OPERATOR Work Phone: [place] [address]Kzlimpolfa49-76-4198 15:02-0400Heart rate94 /min Niecy Aichholz INDUSTRIAL TWISTING MACHINE OPERATOR Work Phone: [facility] HospitalFadtvqerzg50-70-0342 15:02-0400Respiratory rate19 /minLisa Aichholz INDUSTRIAL TWISTING MACHINE OPERATOR Work Phone: [facility] HospitalBzyzaixyho48-26-0046 15:02-8080AiD9% (BldA) [Mass fraction]99 %Niecy Aichholz INDUSTRIAL TWISTING MACHINE OPERATOR Work Phone: [facility] HospitalWzsfbqphuz84-33-7464 15:02-0400Systolic blood mm[Hg]Niecy Aichholz INDUSTRIAL TWISTING MACHINE OPERATOR Work Phone: [facility] HospitalOmodxohglb43-60-2581 11:01-0400Body .02 cmLisa Aichholz Work Phone: [phone]04-18-2024 11:01-0400 Body botovxawdsh25.4 [degF]Niecy Aichholz Work Phone: 1([phone])[address]04-18-2024 11:01-0400 Body jkamve678 kgLisa Aichholz Work Phone: 1(271)427-[address] [place], [place] [address]204-18-2024 11:01-0400 Diastolic blood ulirxgtj26 mm[Hg]Niecy Aichholz Work Phone: [facility]04-18-2024 11:01-0400 Heart rate87 /minLisa Aichholz Work Phone: 1([phone])577-[address] [place], [place] [address]204-18-2024 11:01-0400 Respiratory rate18 /minLisa Aichholz Work Phone: 1([phone])711-[address] [place], [place] [address]204-18-2024 11:01-0400 SaO2% (BldA) [Mass fraction]99 %Niecy Aichholz Work Phone: [facility]04-18-2024 11:01-0400 Systolic blood ypecmlti244 mm[Hg]Niecy Aichholz Work Phone: [facility] Encounters Encounter DateEncounter TypeCare ProviderFacilityStart: 02-09-2025 End: 69-05-0851hrzcynkgeqQlwc J Aichholz INDUSTRIAL TWISTING MACHINE OPERATOR-C Work Phone: [facility] Work Phone: Start: 02-09-2025 End: 64-68-1510Zagkvif encounter procedureNiecy Molina INDUSTRIAL TWISTING MACHINE OPERATOR-C-[facility] [place] Work Phone: Start: 12-08-2024 End: 06-82-0456Nmaumy outpatient visit 25 minutesNiecy Molina NP Work Phone: noms CWM FMComment on above:Migraine without aura and without status migrainosus, not intractable (Primary Dx); Depression with anxiety; Tobacco user; Class 3 severe obesity without serious comorbidity in adult, unspecified BMI, unspecified obesity type; Lower extremity edema; Primary hypertensionStart: 12-08-2024 End: 79-32-6972widfsriyubWFYZ AICHHOLZNot AvailableStart: 12-08-2024 End: 58-91-5629Mqwjry flowsheetNiecy Molina INDUSTRIAL TWISTING MACHINE OPERATOR Work Phone: [facility] FMStart: 12-08-2024 End: 47-42-4114Ltwjue dreheetNiecy Molina INDUSTRIAL TWISTING MACHINE OPERATOR Work Phone: NOVL CWM FMStart: 10-26-2024 End: 74-88-3710VulmacEdhb Aichholz INDUSTRIAL TWISTING MACHINE OPERATOR Work Phone: noMS CWM FMComment on above:Lower extremity edema Start: 08-14-2024 End: 75-16-2783jhsyjgmhneAKXKJGQ N Eddie AvailableStart: 08-10-2024 End: 88-00-6319NotbliJqgu Aichholz INDUSTRIAL TWISTING MACHINE OPERATOR Work Phone: noms CWM FMComment on above:Acute non-recurrent sinusitis of other sinus (Primary Dx)Start: 05-11-2024 End: 42-94-3701Dkyyrf outpatient new 45 minutesSuirene Oliva Workman PA Work Phone: noms SWS UCComment on above:Bronchitis (Primary Dx); Cough, unspecified typeStart: 05-11-2024 End: 67-36-7205vogwjnmqyhRXCIGP M WORKMANNot AvailableStart: 03-18-2024 End: 50-75-0756Rgglzq outpatient visit 15 minutesLisa Aichholz INDUSTRIAL TWISTING MACHINE OPERATOR Work Phone: [facility] CWM FMComment on above:Lower extremity edema (Primary Dx); Tobacco user; Anxiety; Seasonal allergic rhinitis, unspecified trigger; Primary hypertension (CMS/HCC); Class 3 severe obesity without serious comorbidity in adult, unspecified BMI, unspecified obesity type (CMS/HCC)Start: 03-18-2024 End: 16-92-5260jxaoaoojhyYFFZ AICHHOLZNot AvailableStart: 03-18-2024 End: 46-15-5180Trpgvf flowsheetLisa Aichholz INDUSTRIAL TWISTING MACHINE OPERATOR Work Phone: NOEQ CWM FMStart: 03-18-2024 End: 15-74-0469Tblrfm flowsheetLisa Aichholz INDUSTRIAL TWISTING MACHINE OPERATOR Work Phone: noms CWM FMStart: 03-09-2024 End: 78-36-9288KzzjirHfar Aichholz INDUSTRIAL TWISTING MACHINE OPERATOR Work Phone: NOKG CWM FMComment on above:Anxiety; Lower extremity edemaStart: 03-05-2024 End: 79-83-4050Fccrxthrf Result EncounterLisa Aichholz INDUSTRIAL TWISTING MACHINE OPERATOR Work Phone: [facility] External Department UnsolicitedStart: 03-05-2024 End: 45-82-3098Ghistliva Result EncounterLisa Aichholz INDUSTRIAL TWISTING MACHINE OPERATOR Work Phone: noms External Department UnsolicitedStart: 02-13-2024 End: 60-94-7351Jejggq outpatient visit 15 minutesLisa Aichholz INDUSTRIAL TWISTING MACHINE OPERATOR Work Phone: NOCQ CWM FMComment on above:Lower extremity edema (Primary Dx); Tobacco user; Depression with anxiety; Anxiety; Class 3 severe obesity without serious comorbidity in adult, unspecified BMI, unspecified obesity type (CMS/HCC)Start: 02-13-2024 End: 25-39-6279nltnprtyoqSZCK AICHHOLZNot AvailableStart: 02-13-2024 End: 15-35-8179Vfuicb flowsheetLisa Aichholz INDUSTRIAL TWISTING MACHINE OPERATOR Work Phone: noms CWM FMStart: 02-13-2024 End: 79-06-1860Azjnmj flowsheetLisa Aichholz INDUSTRIAL TWISTING MACHINE OPERATOR Work Phone: noms CWM FMStart: 09-12-2023 End: 80-55-6396Myacpazbl department patient visitDung Cespedes [facility]: 09-12-2023 End: 85-64-1548Wvtzrvuyb department patient visitLisa Kellysepideh Work Phone: [facility] Work Phone: Start: 04-22-2022 End: 92-78-6005ojbcuuqdmdWYXAOHM D KATKOFacility:P0Njted: 12-29-2021 End: 17-83-8919ruklrpqeneLV TAD STAFFORDFacility:U0Brigz: 10-11-2021 End: 62-16-9694pcunoyevspFQL NIECY JESSEFacility:Z1Hfevx: 08-15-2021 End: 71-35-5695vdrmfhscjeAEK NIECY AICHHOLZFacility:Y8Sftgh: 05-21-2021 End: 87-61-4145dpppnirgpaXK SEE CLEVELANDFacility:S7Jpier: 05-17-2021 End: 33-48-5160uqgzxungclZDY NIECY NICOLEHGIANNIZFacility:R5Rraxh: 09-23-2020 End: 76-73-0067ttnzzulsbeZLPKBQZ TANGFacility:[facility] Procedures DateProcedureProcedure DetailPerforming ClinicianStart: 39-56-3487Oiqqxjnmow exam chest 2 viewsSummer Pj [place] Work Phone: Start: 31-67-2356Lpxg-cov-2 detection by dna/rna Ian Merrill DO Work Phone: Start: 61-91-8429Gwodhutfxq agent dna/rna influenza 1st 2 typesIan Merrill DO Work Phone: Start: 40-98-6161XWI BASIC METABOLIC PANELLisa Jesse HERRERA Work Phone: Start: 35-17-6213Mvvf intraperitoneal upper abdomen w/laps nosALICIA K PEARCEStart: 50-60-4346Kbjjubkxizka cholecystectomyLALITA JEROME Plan of Treatment DateCare ActivityDetailAuthorStart: 01-05-2025 End: 86-33-0737Agzrflq encounter zcmklgsgi41/12/2025 3:00 PM EDT Office Visit [facility] [address] [place] [address] Niecy Molina, JAVIER [address] [place] [address] [facility] CWM FMStart: 12-08-2024 End: 62-45-6489Ewjczle encounter hokqvcrgi32/15/2025 2:40 PM EDT Office Visit [facility] [address] [place] [address] Niecy Molina, JAVIER [address] [place] [address] Depression with anxiety (Primary Dx); Tobacco user; Class 3 severe obesity without serious comorbidity in adult, unspecified BMI, unspecified obesity typeNOMS CWM FMComment on above:Depression with anxiety (Primary Dx); Tobacco user; Class 3 severe obesity without serious comorbidity in adult, unspecified BMI, unspecified obesity typeStart: 12-08-2024 End: 77-75-7579VQT W Auto Differential panel - BloodCBC and differential Lab Routine Tobacco user Expected: 12/08/2024 (Approximate), Expires: 12/08/2025[facility] Work Phone: Comment on above:Expected: 12/08/2024 (Approximate), Expires: 12/08/2025Start: 12-08-2024 End: 33-22-7137Qtonbpngfsosb metabolic 2000 panel - Serum or PlasmaComprehensive metabolic panel Lab Routine Class 3 severe obesity without serious comorbidity in adult, unspecified BMI, unspecified obesity type Expected: 12/08/2024 (Approximate), Expires: 12/08/2025N[facility] HealthcareComment on above:Expected: 12/08/2024 (Approximate), Expires: 12/08/2025Start: 12-08-2024 End: 70-51-7323Gdzux 1996 panel - Serum or PlasmaLipid panel Lab Routine Class 3 severe obesity without serious comorbidity in adult, unspecified BMI, unspecified obesity type Expected: 12/08/2024 (Approximate), Expires: 12/08/2025 [facility] HealthcareComment on above:Expected: 12/08/2024 (Approximate), Expires: 12/08/2025Start: 12-08-2024 End: 82-45-0323Aqnozvupkys [Units/volume] in Serum or PlasmaTSH Lab Routine Class 3 severe obesity without serious comorbidity in adult, unspecified BMI, unspecified obesity type Expected: 12/08/2024 (Approximate), Expires: 12/08/2025 [facility] HealthcareComment on above:Expected: 12/08/2024 (Approximate), Expires: 12/08/2025Start: 12-08-2024 End: 85-69-2639Nxospgehxe complete panel - UrineUrinalysis with reflex microscopic (clean catch) Lab Routine Tobacco user Expected: 12/08/2024 (Appr oximate), Expires: 12/08/2025[facility] HealthcareComment on above:Expected: 12/08/2024 (Approximate), Expires: 12/08/2025Start: 06-18-2024 End: 59-81-2337Elqiylw encounter obvbulgag76/23/2025 3:20 PM EST Office Visit [facility] [address] [place] [address] Niecy Molina, INDUSTRIAL TWISTING MACHINE OPERATOR [address] [place] [address] [facility] FMStart: 03-18-2024 End: 67-43-3679Mxdhfey encounter procedureNOMS CWM FMComment on above:Tobacco user (Primary Dx)Start: 03-05-2024 End: 03-94-7174Mcovn metabolic 1998 panel - Serum or PlasmaBasic metabolic panel Lab Routine Lower extremity edema Expected: 03/05/2024 (Approximate), Expires: 02/12/2025[facility] Work Phone: Comment on above:Expected: 03/05/2024 (Approximate), Expires: 02/12/2025Start: 02-13-2024 End: 65-25-6307Imuxqtj encounter hqvkgbxaa71/19/2024 3:00 PM EDT Office Visit [facility] [address] [place] [address] Niecy Molina, INDUSTRIAL TWISTING MACHINE OPERATOR [address] [place] [address] ArrivedNOMS CWM FMComment on above:ArrivedStart: 01-26-2024 Influenza vaccinationInfluenza Vaccine (#1)[facility] HealthcareStart: 2022 Screening for malignant neoplasm of cervixNOMS HealthcareStart: 2013 Screening for malignant neoplasm of cervixPap SmearNOMS HealthcarePatient EducationSkin [facility] Work Phone: Patient [facility] Work Phone: Payers DatePayer CategoryPayerPolicy [id number] Health InsuranceCIGNA [id number]-vnv [id number] [id number] [id number] Health [id number] .1.409873.3.57[id number] .1.687041.3.579.[id number] .1.262191.3.57[id number] .1.150193.3.579.[id number] .1.147460.3.579.[id number] .1.280601.3.57[id number] .1.166082.3.57[id number] .1.235096.3.57[id number] .1.446245.3.579.2.4[id number] 2.0.1.034931.3.579.2.[id number] 2.840.1.065845.3.579.[id number] 2.0.1.741207.3.579.2.0[id number] 2.0.1.654616.3.579.2.496394-30-1238Rfkoblz4672167685429-52-5042Ajjmdpu Health [id number] 2.0.1.283504.3.579.2.531 Social History DateTypeDetailFacilityStart: 98-58-7808Fkiwhow smoking status NHISSmoker (finding)[facility]art: 48-64-4838Luc [facility]art: 09-12-2023 End: 23-25-8327Trcqdbq smoking status NHISSmokes tobacco dailyNOMS Healthcare History of tobacco useCigarette SmokerNOMS HealthcareStart: 09-19-2023 End: 73-86-4108Xrvwlkn use and exposureSmokeless tobacco non-userNOMS Healthcare Start: 02-13-2024 End: 51-20-5090Mdfkbmjcz beverage intakeLifetime non-drinker (finding)[facility] HealthcareStart: 02-13-2024 End: 21-13-5057Jwdgawm of Social functionNOMS HealthcareStart: 02-13-2024 End: 32-39-2452Feiaexp use panelNOMS HealthcareStart: 20-76-9436Dufsabz Comment caffine: 1 cup of coffee daily, 1 energy drink dailyNOMS HealthcareStart: 57-76-7918Yqk assigned at birthNot on fileNOMS HealthcareSexFemale (finding) [facility] CenterNEGATED: Highlighted [facility] Clinical Notes 02-13-2024 to 12-08-2024 Note Date & OrslHzfhNynyqyaj03-46-1119 History of Present illness Narrative* Niecy Molina NP - 12/08/2024 3:55 PM EDTAssociated Problem(s): Depression with anxiety No current meds and feels is doing well * Niecy Molina NP - 12/08/2024 3:55 PM EDTAssociated Problem(s): Headache, migraine Will trial imitrex, reviewed instructions ? R/t GLORY Needs eye exam as well WILDE log Fu in 4 weeks * Niecy Molina NP - 12/08/2024 3:54 PM EDTAssociated Problem(s): Lower extremity edema Will try increase of aldactone to 100mg Check labs Fu in 4 weeks Limit sodium * Niecy Molina NP - 12/08/2024 3:54 PM EDTAssociated Problem(s): Primary hypertension Please check blood pressure daily and record DASH diet Limit caffeine Take medication as directed Contact office if chest pain, pressure, dizziness, shortness of breath, swelling legs Recommend slow position changes Meds: aldactone * KIERRA MARTINES - 12/08/2024 2:40 PM EDT Pt has been having ocular migraines frequently. Last migraines was 2 weeks ago lasting 4hrs and ended due to going to ER pt had lost vision for 45 minutes. Left eye was complete tunnel vision and right eye spots. Left eye has been twitching since. Pt states she would have severe nausea. Pt usually takes IBU otc, she starts with 2 tablets 200mg if headache is still there after 30-60minshe will take 2 more tablets. Pt states it usually does not help but may only decreases the pain and she may have to sleep it off. Pt states she has a hx of headaches above her eyes when she was younger. No family hx of headaches/migraines that she knows of. Pt states she has not been under more stress lately, she left her previous job in August and have been happier. Pt states she does not get any tension headaches- pain in her shoulders or neck. Pt would like to try migraine medication * Niecy Molina, JAVIER - 12/08/2024 2:40 PM EDT Images from the original note were not included. Faby Mcconnell is a 34 y.o. female presents with chief complaint of occular migraines HPI: WILDE: about rare over the last 5 years, but twice in the last month : left eye spotts, tunnel vision, can't see, its like a rain on [facility] Right WILDE: dull, ?? Sharp +N, photo/phono Lies down and has to sleep it off No new stressors, Last eye exam: long time, has been to Er about 3 weeks ago given some meds, no CT scan Hx of migraines as teenager, not ocular Swelling in legs, not better with aldactone, can be painful with increase swelling. No compression stocking use. No chest pain/pressure or dyspnea. It used to help, now nothing. Not a lot of salty food. SUBJECTIVE: MEDICATIONS: Current Outpatient Medications Medication Instructions spironolactone (ALDACTONE) 50 mg, Oral, Daily ALLERGIES: Allergies Allergen Reactions Bactrim [Sulfamethoxazole-Trimethoprim] [...] Skin: Negative for rash and wound. Neurological: Positive for headaches. Negative for dizziness, tremors, seizures and syncope. Psychiatric/Behavioral: Negative for behavioral problems, self-injury and [...] anxiety 07/11/2023 Elevated LFTs 07/11/2023 Headache, migraine 07/11/2023 Lower extremity edema 07/11/2023 Obstructive sleep apnea, adult 07/11/2023 Primary hypertension 07/11/2023 Seizure (HCC) 07/11/2023 Tension headache 07/11/2023 Tobacco user 07/11/2023 Tonsillitis 07/11/2023 Past Surgical History: Procedure Laterality Date SECTION, LOW TRANSVERSE CHOLECYSTECTOMY family history includes Cancer in her mother; Diabetes in her mother. OBJECTIVE: Visit Vitals BP 130/84 (BP Location: Left arm, Patient Position: Sitting, BP Cuff Size: Large adult) Pulse 93 Temp 98.5 F (Temporal) Resp 20 Wt (!) 418 lb SpO2 96% BMI 74.05 kg/m Smoking Status Every Day BSA 2.91 m Physical Exam Vitals and nursing note reviewed. Constitutional: General: She is not in acute distress. Appearance: Normal appearance. She is obese. She is not ill-appearing. HENT: Head: Normocephalic and atraumatic. Right Ear: Tympanic membrane, ear canal and external ear normal. Left Ear: Tympanic membrane, ear canal and external ear normal. Nose: Nose normal. No congestion or rhinorrhea. Mouth/Throat: Mouth: Mucous membranes are moist. Pharynx: No oropharyngeal exudate or posterior oropharyngeal erythema. Eyes: Extraocular Movements: Extraocular movements intact. Conjunctiva/sclera: Conjunctivae normal. Pupils: Pupils are equal, round, and reactive to light. Neck: Vascular: No carotid bruit. Cardiovascular: Rate and Rhythm: Normal rate and regular rhythm. Pulses: Normal pulses. Heart sounds: Normal heart sounds. No murmur heard. Pulmonary: Effort: Pulmonary effort is normal. Breath sounds: Normal breath sounds. No wheezing or rhonchi. Abdominal: General: Bowel sounds are normal. There is no distension. Palpations: Abdomen is soft. There is no mass. Tenderness: There is no abdominal tenderness. Musculoskeletal: General: Normal range of motion. Cervical back: Normal range of motion and neck supple. Right lower leg: Edema present. Left lower leg: Edema present. Lymphadenopathy: Cervical: No cervical adenopathy. Skin: General: Skin is warm and dry. Capillary Refill: Capillary refill takes 2 to 3 seconds. Findings: No rash. Neurological: General: No focal deficit present. Mental Status: She is alert and oriented to person, place, and time. Cranial Nerves: No cranial nerve deficit. Sensory: No sensory deficit. Motor: No weakness. Psychiatric: Mood and Affect: Mood normal. Behavior: Behavior normal. Thought Content: Thought content normal. Judgment: Judgment normal. ASSESSMENT AND PLAN: No follow-ups on file. Problem List Items Addressed This Visit Primary hypertension Please check blood pressure daily and record DASH diet Limit caffeine Take medication as directed Contact office if chest pain, pressure, dizziness, shortness of breath, swelling legs Recommend slow position changes Meds: aldactone Lower extremity edema Will try increase of aldactone to 100mg Check labs Fu in 4 weeks Limit sodium Relevant Medications spironolactone (Aldactone) 100 MG tablet Tobacco user The patient has been advised of the risks of continued smoking: stroke, SD, all forms of cancer, lung disease, and . Options for quitting smoking include: cold turkey, hypnosis, acupuncture, nicotine replacement meds(gum, lozenges, and patches), Buproprion, and Varenicline. At this time pt is encouraged to evaluate their goals for wanting to quit smoking, and reach out toprovider when ready to start this process Relevant Orders CBC and differential Urinalysis with reflex microscopic (clean catch) Headache, migraine Will trial imitrex, reviewed instructions ? R/t GLORY Needs eye exam as well WILDE log Fu in 4 weeks Relevant Medications SUMAtriptan (Imitrex) 100 MG tablet Depression with anxiety - Primary No current meds and feels is doing well Class 3 severe obesity without serious comorbidity in adult Discussed with patient their BMI (actual, verses recommended). We have also discussed lifestyle modifications: attempts to perform physical activity as chronic conditions allow, also to monitor dietary intake: increasing protein/fruits/veggies and lowering carb intake (unless contraindicated). Limit sodas, juices, and sugary drinks. Relevant Orders Comprehensive metabolic panel Lipid panel TSH * Niecy Molina NP - 12/08/2024 7:01 AM EDTAssociated Problem(s): Class 3 severe obesity without serious comorbidity in adult Discussed with patient their BMI (actual, verses recommended). We have also discussed lifestyle modifications: attempts to perform physical activity as chronic conditions allow, also to monitor dietary intake: increasing protein/fruits/veggies and lowering carb intake (unless contraindicated). Limit sodas, juices, and sugary drinks. * Niecy Molina NP - 12/08/2024 7:00 AM EDTAssociated Problem(s): Tobacco user The patient has been advised of the risks of continued smoking: stroke, SD, all forms of cancer, lung disease, and . Options for quitting smoking include: cold turkey, hypnosis, acupuncture, nicotine replacement meds(gum, lozenges, and patches), Buproprion, and Varenicline. At this time pt is encouraged to evaluate their goals for wanting to quit smoking, and reach out toprovider when ready to start this process documented in this encounterEllett Memorial HospitalQsmekmyukc25-53-7515 Instructions* Patient Instructions* Niecy Molina NP - 12/08/2024 2:40 PM EDT Get fasting labs completed Call eye doctor to get an appt Will trial Imitrex (sumatriptan) at onset of migraine WILDE, may repeat in 2 hours if needed, no more than 2 pills in 24 hours, no more than twice a week, and keep WILDE log. documented in this encounterEllett Memorial HospitalMvtyznrflk90-70-2005 History of Present illness Narrative* Bubba Pj RainermervinCHEPE - 05/11/2024 2:35 PM EST Images from the original note were not included. [address] , [address] [facility], [address] P: [phone] F: [phone] HPI Historian of HPI: patient Faby Mcconnell [...] if new, worsening, or persistent symptoms to returnfor immediate re-eval. Will call with CXR results once available. Advised follow up with PCP in 5 days or sooner if needed. Patient voiced understanding and agreement with the plan. All questions/concerns addressed. - predniSONE (Deltasone) 20 MG tablet; Take 2 tabs orally by mouth once daily for 5 days. Dispense:10 tablet; Refill: 0 - albuterol HFA (Ventolin HFA) 90 mcg/act inhaler; Inhale 2 puffs every 6 (six) hours if needed forwheezing or shortness of breath Dispense: 8 g; Refill: 0 2. Cough, unspecified type Covid, flu both neg, reviewed with pt. CXR bronchitis changes, pt notified via TE. - RAPID DNA COVID - INFLUENZA DNA PROBE - XR chest 2 views documented in this encounterEllett Memorial HospitalPmohwrefvf71-03-1018 History of Present illness Narrative* Niecy Molina NP - 03/18/2024 3:47 PM EDTAssociated Problem(s): Allergic rhinitis Refilled meds * Niecy Molina NP - 03/18/2024 3:47 PM EDTAssociated Problem(s): Anxiety Continue with current meds Fu in 3 months * Niecy Molina NP - 03/18/2024 3:46 PM EDTAssociated Problem(s): Lower extremity edema Feels that aldactone 50mg daily Wants to stay at current dose Looses insurance at the end of month Until beginning of the year, requesting 90 day supply Fu in 3 months * Niecy Molina NP - 03/18/2024 3:45 PM EDTAssociated Problem(s): Primary hypertension (CMS/HCC) Stable at this time, no med dose chagnes * Niecy Molina NP - 03/18/2024 3:20 PM EDT Images from the original note were not [...] adult 07/11/2023 Primary hypertension (CMS/HCC) 07/11/2023 Seizure (CMS/[facility]) 07/11/2023 Tension headache 07/11/2023 Tobacco user 07/11/2023 [...] of the risks of continued smoking: stroke, SD, all forms of cancer, lung disease, and . Options for quitting smoking include: cold turkey, hypnosis, acupuncture, nicotine replacement meds(gum, lozenges, and patches), Buproprion, and Varenicline. At this time pt is encouraged to evaluate their goals for wanting to quit smoking, and reach out toprovider when ready to start this process Allergic rhinitis Refilled meds Relevant Medications cetirizine (ZyrTEC) 10 MG tablet triamcinolone (Nasacort) 55 MCG/ACT nasal inhaler Class 3 severe obesity without serious comorbidity in adult (CMS/HCC) Anxiety Continue with current meds Fu in 3 months Relevant Medications escitalopram (Lexapro) 10 MG tablet * Niecy Molina NP - 03/18/2024 7:11 AM EDTAssociated Problem(s): Tobacco user The patient has been advised of the risks of continued smoking: stroke, SD, all forms of cancer, lung disease, and . Options for quitting smoking include: cold turkey, hypnosis, acupuncture, nicotine replacement meds(gum, lozenges, and patches), Buproprion, and Varenicline. At this time pt is encouraged to evaluate their goals for wanting to quit smoking, and reach out toprovider when ready to start this process documented in this encounterEllett Memorial [id number] History of Present illness Narrative* Niecy Molina NP - 02/13/2024 4:53 PM EDTAssociated Problem(s): Lower extremity edema Not regularly taking lasix Will trial aldactone at 50mg daily Fu in 4 weeks for recheck Labs 1 week prior to appt * Niecy Molina NP - 02/13/2024 3:28 PM EDTAssociated Problem(s): Tobacco user Smokes about : 1/2 ppd The patient has been advised of the risks of continued smoking: stroke, SD, all forms of cancer, lung disease, and . Options for quitting smoking include: cold turkey, hypnosis, acupuncture, nicotine replacement meds(gum, lozenges, and patches), Buproprion, and Varenicline. At this time pt is encouraged to evaluate their goals for wanting to quit smoking, and reach out toprovider when ready to start this process * KIERRA MARTINES - 02/13/2024 3:00 PM EDT Pt has a red rash on both of her lower legs that started 2 weeks ago- itches Pt has used a eczema lotion but did not help. Pt states it does not bother her when she works- she wears pants. Pt would like to have a refill on her lexapro and lasix * Niecy Molina, INDUSTRIAL TWISTING MACHINE OPERATOR - 02/13/2024 3:00 PM EDT Images from the original note were not [...] reports no chest pain, confusion, decreased concentration, dizziness,excessive worry, impotence, insomnia, nausea, palpitations, panic, shortness [...] weight gain. Negative for appetite change, chills andfever. HENT: Negative for congestion, ear pain and [...] ideas. The patient is nervous/anxious. The patient doesnot have insomnia. Hematological: Does not bruise/bleed easily. [...] adult 07/11/2023 Primary hypertension (CMS/HCC) 07/11/2023 Seizure ([facility]) 07/11/2023 Tension headache 07/11/2023 Tobacco user 07/11/2023 [...] of the risks of continued smoking: stroke, SD, all forms of cancer, lung disease, and . Options for quitting smoking include: cold turkey, hypnosis, acupuncture, nicotine replacement meds(gum, lozenges, and patches), Buproprion, and Varenicline. At this time pt is encouraged to evaluate their goals for wanting to quit smoking, and reach out toprovider when ready to start this process Depression with anxiety Class 3 severe obesity without serious comorbidity in adult (CMS/HCC) Anxiety Relevant Medications escitalopram (Lexapro) 10 MG tablet documented in this encounterNOMS HealthcareEvaluation noteNo assessment information availableMansfield Hospital Ctr Work Phone: Evaluation note* Diagnosis Anxiety- Primary Anxiety state, unspecified Primary [...] edema Edema documented in this encounter [facility]* Diagnosis Anxiety- Primary Anxiety state, unspecified Primary [...] type (CMS/HCC) documented [facility]* Diagnosis Anxiety- Primary Anxiety state, unspecified Primary [...] unspecified type documented [facility] this [facility]* Diagnosis Lower extremity edema- Primary Edema Tobacco user Tobacco use disorder Depression with anxiety Dysthymic disorder Anxiety Anxiety state, unspecified Class 3 severe obesity without serious comorbidity in adult, unspecified BMI, unspecified obesity type (CMS/HCC) documented [facility] this [facility]* Diagnosis Anxiety- Primary Anxiety state, unspecified Primary [...] sinus- Primary documented [facility] this [facility]* Diagnosis Anxiety- Primary Anxiety state, unspecified Primary [...] edema Edema documented [facility] this [facility]* Diagnosis Anxiety- Primary Anxiety state, unspecified Primary hypertension Unspecified essential hypertension Elevated LFTs Other abnormal [...] Seasonal allergic rhinitis, unspecified trigger Primary hypertension Unspecified essential hypertension Class 3 severe obesity without serious comorbidity in adult, unspecified BMI, unspecified obesity type Migraine without aura and without status migrainosus, not intractable- Primary Depression with anxiety Dysthymic disorder Tobacco user Tobacco use disorder Class 3 severe obesity without serious comorbidity in adult, unspecified BMI, unspecified obesity type Lower extremity edema Edema Primary hypertension Unspecified essential hypertension documented [facility] this encounter [facility]* Diagnosis Onset Date Resolution Status Admit Date Essential hypertension acuteSept2024 2:11pmHeadache, chronic migraine without auraacute February 09, 2025 2:11pmLower extremity edemaacuteSept2024 2:11pm Nicotine dependenceacuteSept2024 2:11pmObesity, Class III, BMI 40- 49.9 (morbid obesity)acuteSept2024 2:11pm [facility] Work Phone: Reason for referral (narrative)No reason for referral information availableMarietta Osteopathic Clinic Work Phone: Summary Purpose Family History No Family History Records FoundNo Family History Records FoundNo Family History Records FoundNo Family History Records FoundNo Family History Records Found Advance Directives Advance Directive Response Recorded Date/ Time Advance Directives No October 15 3:54pm Chief Complaint and Reason for Visit Chief Complaint neck wound Chief Complaint Admit Date 4W February 09, 2025 2:11pm Reason for Visit Admit Date Essential hypertension February 09, 2 025 2:11pm Headache, chronic migraine without aura February 09, 2025 2:11pm Lower extremity edema February 09 2:11pm Nicotine dependence February 09, 2025 2:11pm Obesity, Class III, BMI 40-49.9 (morbid obesity) February 09, 2025 2:11pm Additional Source Comments INFORMATION SOURCE (unrecogn ized section and content) DATE CREATED AUTHOR 09/05/2020 [facility] DATE CREATED AUTHOR AUTHOR'S ORGANIZ ATION 11/12/2020 [facility] DATE CREATED AUTHOR AUTHOR'S ORGANIZ ATION 05/16/2022 [facility] DATE CREATED AUTHOR AUTHOR'S ORGANIZ ATION 09/24/2023 [facility] DATE CREATED AUTHOR AUTHOR'S ORGANIZ ATION 12/12/2024 [facility] EPIC Care Teams (unrecognized sec tion and content) Team Status: Active Member Role Status Dates Niecy Molina Primary Care Provider Active Team Status: Inactive Member Role Status Dates Niecy Molina Primary Care Provider Active Sta rt: September 12, 2023 End: September 12, 2023Carrie Prater ProviderActiveStart: September 12, 2023 End: September 12, 2023Team MemberRelationshipSpecialtyStart DateEnd Date Alonzo Tipton MD [address] [place] [phone] PCP - GeneralFamily Medicine07/08/23 Niecy Molina NP [address] [place] [address] Referring PhysicianNurse Practitioner12/12/22Team MemberRelationshipSpecialty Start DateEnd Date Alonzo Tipton MD [address] [place] [phone] [facility]CP - [facility]07/08/23 Niecy Molina NP [address] [place] [address] Referring PhysicianNurse Practitioner12/12/22Team MemberRelationshipSpecialty Start DateEnd Date Unallocated, Shelley Julio MD [address] [place] [address] [facility] - [facility]The [facility] Alnukqme92/23/24 Niecy Molina NP [address] [place] [phone] Referring PhysicianNurse Practitioner12/12/22Team MemberRelationshipSpecialty Start DateEnd Date Unallocated, Noms MD Sumanth [address] [place] [address] PCP - GeneralFamily Wbxxflyl26/23/24 Niecy Molina NP [address] [place] [address] Referring PhysicianNurse Practitioner12/12/22Team MemberRelationshipSpecialty Start DateEnd Date Alonzo Tipton MD [address] [place] [address] PCP - GeneralFamily Odxplxcc16/31/24 Niecy Molina NP [address] [place] [address] Referring PhysicianNurse Practitioner12/12/22Team MemberRelationshipSpecialty Start DateEnd Date Alonzo Tipton MD [address] [place] [address] PCP - GeneralFamily Medicine07/08/23 Niecy Molina NP [address] [place] [address] Referring PhysicianNurse Practitioner12/12/22Team MemberRelationshipSpecialty Start DateEnd Date Alonzo Tipton MD [address] [place] [address] PCP - GeneralFamily Medicine07/08/23 Niecy Molina NP [address] [place] [address] Referring PhysicianNurse Practitioner12/12/22Team MemberRelationshipSpecialty Start DateEnd Date Alonzo Tipton MD [address] [place] [address] PCP - GeneralFamily Ujpsrokj79/31/24 Niecy Molina NP [address] [place] [address] Referring PhysicianNurse Practitioner12/12/22Team MemberRelationshipSpecialty Start DateEnd Date Alonzo Tipton MD [address] [place] [address] PCP - GeneralFamily Ncuvmqqi22/31/24 Niecy Molina NP [address] [place] [address] Referring PhysicianNurse Practitioner12/12/22Team MemberRelationshipSpecialty Start DateEnd Date Alonzo Tipton MD [address] [place] [address] PCP - GeneralFamily Wyvsdssa51/31/24 Niecy Molina NP [address] [place] [address] Referring PhysicianNurse Practitioner12/12/22 Team Status: Active Member Role Status Dates Niecy Molina NP-C Primary Care Provider Active Team Status: Inactive Member Role Status Dates MICHI Cox Primary Care Provider Active Start: February 09, 2025 End: February 09, 2025Carroll Cox ProviderActiveStart: February 09, 2025 End: February 09, 2025 Goals (unrecognized section and content) Goals may be documented in a n alternate sectionGoals may be documented in an alternate section Reason for Visit (unrecogniz ed section and content) ReasonCommentsoccular migraines FOR RECORDS PERTAINING TO PATIENTS WHO ARE [...] BE BASED ON THE PRIMARY CLINICAL RECORDS. [employer] provides no warranty or guarantee of the accuracy or completeness of information in this document.
[2025-03-31 08:13] LABS: Hematocrit 44.8 % (36.0-48.0); Hemoglobin 14.4 g/dL (12.0-16.0); Immature Granulocytes Abs Auto 0.02 10^3/uL (0.00-0.03); Immature Granulocytes Pct Auto 0.2 % (0.0-0.5); Lymphocytes Absolute Auto 4.1 10^3/uL (1.2-3.8); Mean Corpuscular HGB Conc 32.1 g/dL (29.9-35.2); Mean Corpuscular Hemoglobin 27.4 pg (26.7-34.0); Mean Corpuscular Volume 85.3 fL (81.0-99.0); Platelet Count 321 10^3/uL (150-450); Red Blood Count 5.25 10^6/uL (4.20-5.40); White Blood Count 10.0 10^3/uL (4.0-11.0)
[2025-03-31 08:27] LABS: Glucose Urine UA NEGATIVE (NEGATIVE)
[2025-03-31 08:47] LABS: Cast Seen? NONE SEEN #/LPF (NONE SEEN); Crystals Seen? None Seen #/HPF (None Seen)
[2025-03-31 09:06] LABS: Alanine Aminotransferase 29 U/L (14-59); Albumin Globulin Ratio 0.8; Albumin Level 3.4 g/dL (3.4-5.0); Alkaline Phosphatase 70 U/L (46-116); Anion Gap 11.9; Aspartate Amino Transferase 19 U/L (15-37); Blood Urea Nitrogen 12.0 mg/dL (7.0-18.0); Calcium 8.9 mg/dL (8.5-10.1); Carbon Dioxide 29.5 mmol/L (21.0-32.0); Chloride 103 mmol/L (98-107); Cholesterol 159 mg/dL (<=200); Estimated GFR (African America >60 (>=60 mL/min/1.73m^2); Estimated GFR (Non-African Ame >60 (>=60 mL/min/1.73m^2); Globulin 4.3 g/dL; Glucose 93 mg/dL (74-106); HDL Cholesterol 40 mg/dL (40-60); Potassium 5.4 mmol/L (3.5-5.1); Sodium 139 mmol/L (136-145); Thyroid Stimulating Hormone 3.649 uIU/mL (0.358-3.740); Total Protein 7.7 g/dL (6.4-8.2); Triglycerides 147 mg/dL (<=150); VLDL CHOLESTEROL 29.4 mg/dL
== END 2025-03-31 07:47 | disposition home or self-care (01) ==
LOC: LAB 07:47
PROVIDERS: PCP Nurse Practitioner; Visit Provider Nurse Practitioner
DX: E66.01 Morbid (severe) obesity due to excess calories (principal); E66.813 Obesity, class 3; Z72.0 Tobacco use
CPT/HCPCS: 36415; 80053; 80061; 81001; 84443; 85025